=== PATIENT | male | born 1925 | race Caucasian/White ===

== ENCOUNTER 2016-11-14 19:54 | Inpatient (IN) ==
[2016-11-14] MEDS ORDERED: 0.9 % SODIUM CHLORIDE 1,000 ML IV ONE ×2 (20:17→22:41)
[2016-11-14] MEDS ORDERED: cefTRIAXone 1 GM in DEXTROSE 5% IN WATER 50 ML IV SCH (20:30)
[2016-11-14] MEDS ORDERED: 0.9 % SODIUM CHLORIDE 1,000 ML IV SCH (21:00)
[2016-11-14 21:16] LABS: Basophils # (Auto) 0 K/mcL (0.0-0.3); Basophils % (Auto) 0.1 % (0.0-2.0); Eosinophils # (Auto) 0.2 K/mcL (0.0-0.7); Eosinophils % (Auto) 0.9 % (0.0-7.0); Granulocytes % (Auto) 92.2 % (38.0-78.0); Lymphocytes # (Auto) 0.4 K/mcL (1.5-4.8); Lymphocytes % (Auto) 1.8 % (15.5-49.0); Mean Cell Volume 91.5 fL (80.0-100.0); Mean Corpuscular HGB Conc 32.8 g/dL (31.0-36.0); Mean Corpuscular Hemoglobin 30.1 pg (26.0-34.0); Monocytes # (Auto) 1.2 K/mcL (0.1-0.9); Platelet Count 340 K/mcL (140-440); RBC 3.23 M/mcL (4.50-5.90); Red Cell Distribution Width 14.3 % (11.5-14.5)
[2016-11-14 21:38] LABS: ALT/SGPT 14 U/l (0-40); Albumin 3.2 gm/dL (3.2-5.2); Alkaline Phosphatase 84 U/L (39-117); Blood Urea Nitrogen 30 mg/dl (8-23)
[2016-11-14 22:15] LABS: Appearance,Urine TURBID; Bacteria,Urine FEW /hpf (0); Bilirubin,Urine COLOR INTERFERENCE mg/dL (NEG); Color,Urine RED; Glucose,Urine (UA) NORM (NEG); Ictotest,Urine QNS (NEG); Leukocyte Esterase,Urine COLOR INTERFERENCE /uL (NEG); Nitrate,Urine COLOR INTERFERENCE (NEG); Protein,Urine >=500 mg/dL (NEG); Sulfosalicylic Acid,Urine 4+ mg/dL (NEG); Urine Blood 250 mg/dL (<0.03); Urine RBC > 182 /hpf (0-1); Urine Squamous Epithelial Cell 0 /hpf (0-4); Urine WBC > 182 /hpf (0-4); Urobilinogen,Urine COLOR INTERFERENCE mg/dL (NEG)
[2016-11-14] MEDS ORDERED: VANCOMYCIN 1,000 MG in 0.9 % SODIUM CHLORIDE 250 ML IV ONE (22:35)
[2016-11-14] MEDS ORDERED: CEFEPIME 2 GM in DEXTROSE 5% IN WATER 50 ML IV ONE (22:35)
--- NOTE | 2016-11-14 22:45 | Emergency Department Note ---
General Adult HPI - General Chief complaint: Bleeding Other Stated complaint: fever, and blood in urine Time Seen by Provider: 11/14/16 19:57 Source: patient, family, other Mode of arrival: ambulatory Limitations: no limitations - History of Present Illness HPI Narrative: 89-year-old male with a history of previous seizures with UTI comes in today with a syncopal episode and possible seizure from [facility] [place] [facility]. He was shaking and tremulous and coughing. He has been coughing for the last 3 days and had a temperature of 102. EMS reported temperature 100.1. Slightly low blood pressure at 92/50 which is about 10 points systolic lower than typical. He is very hard of hearing but his daughter is here to give me some of the history - Related Data Home Medications Medication Instructions Recorded Confirmed citalopram 20 mg tablet 20 mg PO QDAY tab 04/04/16 11/14/16 Albuterol Sulfate [Ventolin] 2 puff INH Q4HP PRN 06/29/16 11/14/16 Bisacodyl [Dulcolax] 10 mg MT DAILYP PRN 06/29/16 11/14/16 Docusate Sodium [Colace] 100 mg PO BID 06/29/16 11/14/16 Magnesium Hydroxide [Milk of 30 ml PO DAILYP PRN 06/29/16 11/14/16 Magnesia] Polyethylene Glycol 3350 [Miralax] 17 gm PO QDAYPC 06/29/16 11/14/16 Potassium Chloride 40 meq PO QDAY 06/29/16 11/14/16 Simvastatin [Zocor] 20 mg PO HS 06/29/16 11/14/16 glipiZIDE [Glucotrol] 10 mg PO ACB 06/29/16 11/14/16 sitaGLIPtin [Januvia] 100 mg PO DAILY 06/29/16 11/14/16 Ferrous Gluconate [Ferrous 324 mg PO BID 07/30/16 11/14/16 Gluconate] Loperamide [Imodium] 2 mg PO PRN PRN 07/30/16 11/14/16 Calcium Carbonate [Tums] 200 mg PO TID 09/04/16 11/14/16 Furosemide [Lasix] 20 mg PO BID 09/04/16 11/14/16 warfarin 3 mg tablet 3 mg PO DAILY tab 10/19/16 11/14/16 Previous Rx's Medication Instructions Recorded Acetaminophen [Tylenol] 650 mg PO Q4-6HP PRN #0 tab 07/04/16 Insulin Lispro [Humalog] See Protocol SQ ACHS #0 unit 07/04/16 Metoprolol Tartrate [Lopressor] 12.5 mg PO BID tab 07/04/16 Tamsulosin [Flomax] 0.4 mg PO HS cap 07/04/16 Allergies Allergy/AdvReac Type Severity Reaction Status Date / Time No Known Drug Allergies Allergy Verified 09/19/16 13:39 Review of Systems All systems ED: reviewed and negative except as stated. Past Medical History - Past Medical History Attestation: Yes: The following information was validated with the patient. Medical history: Reports: arthritis, atrial fibrillation, cancer (prostate), diabetes, hyperlipidemia, hypertension, renal disease, other (indwelling catheter for obstructive uropathy) Surgical history ED: Reports: cataract, herniorrhaphy, other (TUR, left knee arthroscopy) - Social History smoking status: Never smoker Alcohol use: Reports: None Drug use: Reports: none Physical Exam Pale but otherwise normal-appearing male in no acute distress. Gross hearing loss limits history and exam. Normocephalic atraumatic. Conjunctiva clear sclerae white and anicteric. No nasal discharge or congestion. Oropharynx is pink and moist. Neck is supple without lymphadenopathy or thyromegaly. Heart is regular rate and rhythm no murmurs appreciated. Lungs have crackles bilaterally especially [place]. No wheezing or rhonchi. No respiratory distress. Abdomen soft nontender nondistended. Urine initially had gross blood without clots in his indwelling Kirkpatrick but after changing his out and getting fluids urine cleared up to a clear yellow. No pedal edema. +2 radial pulse. Alert but unclear if oriented. - General Limitations: no limitations Course Vital Signs Temperature 98.8 F 11/14/16 19:55 Pulse Rate 105 H 11/14/16 19:55 Respiratory Rate 25 H 11/14/16 19:55 Blood Pressure 92/50 11/14/16 19:55 Pulse Oximetry (%) 92 11/14/16 19:55 Temperature 100.9 F H 11/14/16 21:45 Pulse Rate 96 H 11/14/16 21:45 Respiratory Rate 24 11/14/16 21:45 Blood Pressure 100/42 11/14/16 21:45 Pulse Oximetry (%) 91 11/14/16 21:45 Medical Decision Making - Medical Records Medical records reviewed: Yes I reviewed the patient's medical records. - Lab Data Lab results reviewed: Yes I reviewed the patient's lab results. Result diagrams: 11/14/16 20:35 11/14/16 20:35 Lab Results 11/14/16 11/14/16 11/14/16 Range/Units 20:20 20:35 20:35 WBC 25.0 H (4.5-11.0) K/mcL RBC 3.23 L (4.50-5.90) M/mcL Hgb 9.7 L (13.5-16.5) g/dL Hct 29.6 L (41.0-55.0) % MCV 91.5 (80.0-100.0) fL MCH 30.1 (26.0-34.0) pg MCHC 32.8 (31.0-36.0) g/dL RDW 14.3 (11.5-14.5) % Plt Count 340 (140-440) K/mcL MPV 7.4 (7.4-10.4) fL Gran % 92.2 H (38.0-78.0) % Lymph % (Auto) 1.8 L (15.5-49.0) % Terry % (Auto) 5.0 (1.0-9.0) % Eos % (Auto) 0.9 (0.0-7.0) % Baso % (Auto) 0.1 (0.0-2.0) % Gran # 23.0 H (1.8-8.0) K/mcL Lymph # 0.4 L (1.5-4.8) K/mcL Terry # 1.2 H (0.1-0.9) K/mcL Eos # 0.2 (0.0-0.7) K/mcL Baso # 0 (0.0-0.3) K/mcL PT 26.6 H (11.9-14.5) sec INR 2.4 H (0.9-1.1) VBG Lactic Acid (0.5-2.2) mmol/L Sodium 131 L (133-145) mmol/L Potassium 4.8 (3.3-5.1) mmol/L Chloride 94 L (96-108) mmol/L Carbon Dioxide 24 (22-30) mmol/L Anion Gap 13.0 (8-16) BUN 30 H (8-23) mg/dl Creatinine 1.7 H (0.7-1.2) mg/dl GFR Calculation 35 Glucose 105 (70-105) mg/dL Calcium 8.6 (8.6-10.4) mg/dl Total Bilirubin 0.4 (0.0-1.0) mg/dL AST 27 (0-37) U/l ALT 14 (0-40) U/l Alkaline Phosphatase 84 (39-117) U/L Total Protein 6.4 (5.9-8.4) gm/dL Albumin 3.2 (3.2-5.2) gm/dL Globulin 3.2 (2.2-3.7) gm/dL Albumin/Globulin Ratio 1.0 (1.0-2.3) Lipase (7-60) U/L Urine Color Urine Appearance Urine pH (5.0-9.0) Ur Specific [place] (1.000-1.035) Urine Protein (NEG) mg/dL Urine Glucose (UA) (NEG) mg/dL Urine Ketones (NEG) mg/dL Urine Occult Blood (<0.03) mg/dL Urine Nitrate (NEG) Urine Bilirubin (NEG) mg/dL Urine Ictotest Prot Sulfosalicylic Acd (NEG) mg/dL Urine Urobilinogen (NEG) mg/dL Ur Leukocyte Esterase (NEG) /uL Urine RBC (0-1) /hpf Urine WBC (0-4) /hpf Ur Squamous Epith Cells (0-4) /hpf Urine Bacteria (0) /hpf 11/14/16 11/14/16 11/14/16 Range/Units 20:35 20:45 21:03 WBC (4.5-11.0) K/mcL RBC (4.50-5.90) M/mcL Hgb (13.5-16.5) g/dL Hct (41.0-55.0) % MCV (80.0-100.0) fL MCH (26.0-34.0) pg MCHC (31.0-36.0) g/dL RDW (11.5-14.5) % Plt Count (140-440) K/mcL MPV (7.4-10.4) fL Gran % (38.0-78.0) % Lymph % (Auto) (15.5-49.0) % Terry % (Auto) (1.0-9.0) % Eos % (Auto) (0.0-7.0) % Baso % (Auto) (0.0-2.0) % Gran # (1.8-8.0) K/mcL Lymph # (1.5-4.8) K/mcL Terry # (0.1-0.9) K/mcL Eos # (0.0-0.7) K/mcL Baso # (0.0-0.3) K/mcL PT (11.9-14.5) sec INR (0.9-1.1) VBG Lactic Acid 2.1 (0.5-2.2) mmol/L Sodium (133-145) mmol/L Potassium (3.3-5.1) mmol/L Chloride (96-108) mmol/L Carbon Dioxide (22-30) mmol/L Anion Gap (8-16) BUN (8-23) mg/dl Creatinine (0.7-1.2) mg/dl GFR Calculation Glucose (70-105) mg/dL Calcium (8.6-10.4) mg/dl Total Bilirubin (0.0-1.0) mg/dL AST (0-37) U/l ALT (0-40) U/l Alkaline Phosphatase (39-117) U/L Total Protein (5.9-8.4) gm/dL Albumin (3.2-5.2) gm/dL Globulin (2.2-3.7) gm/dL Albumin/Globulin Ratio (1.0-2.3) Lipase 50 (7-60) U/L Urine Color Red Urine Appearance Turbid Urine pH 7.0 (5.0-9.0) Ur Specific [place] 1.010 (1.000-1.035) Urine Protein >=500 A (NEG) mg/dL Urine Glucose (UA) Norm (NEG) mg/dL Urine Ketones Color interference (NEG) mg/dL Urine Occult Blood 250 (<0.03) mg/dL Urine Nitrate Color interference (NEG) Urine Bilirubin Color interference (NEG) mg/dL Urine Ictotest QNS Prot Sulfosalicylic Acd 4+ (NEG) mg/dL Urine Urobilinogen Color interference (NEG) mg/dL Ur Leukocyte Esterase Color interference (NEG) /uL Urine RBC > 182 H (0-1) /hpf Urine WBC > 182 H (0-4) /hpf Ur Squamous Epith Cells 0 (0-4) /hpf Urine Bacteria Few A (0) /hpf - Radiology Data Radiology results reviewed: Yes I reviewed the patient's radiology results. Portable chest x-ray appears clear CT scan of the chest without contrast was done for cough and crackles- could not do with contrast secondary to creatinine of 1.7. I do not see jean pneumonia just some atelectasis in the left lower lobe. - EKG Data EKG #1 EKG attestation: Yes I reviewed and interpreted this EKG. EKG results narrative: eKG shows a rate of 96 with right bundle branch block and left posterior fascicular block no evidence of ischemia Disposition Summary: Patient is DNR with limited interventions Patient was initially worked up for sepsis from UTI versus pneumonia- he had fever hypertension and hematuria grossly in his indwelling Kirkpatrick. We started fluid resuscitation, got blood cultures and urine cultures, started Rocephin. Lactic acid was done Chest x-ray and subsequently CT scan of the chest was done which did not show significant respiratory infection, though clinically he has crackles and upper respiratory infection. White count was 25 and in the setting of fever and hypotension, this merits diagnosis of sepsis likely from UTI. After we changed Kirkpatrick urine cleared up. We added cefepime and vancomycin just to be sure we covered for healthcare associated infections as he lives in a nursing facility. He responded well to fluid resuscitation- he will receive a total of 3 L Discussed his case with Dr. Ferrer, hospitalist, who agreed to accept patient for admission Disposition: Xfer As Inpt ([facility]) Condition: Fair Referrals: Jamie Turner MD [Primary Care Provider] - Benton Ferrer MD [Physician] -
[2016-11-14] MEDS ORDERED: DEXTROSE 50% 50 ML VIAL IV PRN (23:39)
[2016-11-14] MEDS ORDERED: traZODone HCL 50 MG TABLET PO PRN (23:39)
[2016-11-14] MEDS ORDERED: MAGNESIUM SULFATE 2 GM/50 ML BAG IV PRN (23:39)
[2016-11-14] MEDS ORDERED: LEVOFLOXACIN 750 MG/150 ML BAG IV SCH (23:39)
[2016-11-14] MEDS ORDERED: ONDANSETRON 4 MG/2 ML VIAL IV PRN (23:39)
[2016-11-14] MEDS ORDERED: VANCOMYCIN PER PHARMACY IV ONE (23:39)
[2016-11-14] MEDS ORDERED: POTASSIUM CHLORIDE 20 MEQ PACKET PO PRN (23:39)
[2016-11-14] MEDS: 0.9 % SODIUM CHLORIDE 1,000 ML IV SCH (23:45)
[2016-11-14] MEDS: CEFEPIME 2 GM in DEXTROSE 5% IN WATER 50 ML IV SCH (23:45)
[2016-11-14] MEDS ORDERED: LEVOFLOXACIN 750 MG/150 ML BAG IV ONE (23:53)
[2016-11-15] MEDS ORDERED: NOREPINEPHRINE BITARTRATE 4 MG/4 ML AMPUL IV ONE (00:04)
--- NOTE | 2016-11-15 00:41 | History and Physical Report ---
DATE OF ADMISSION: 11/14/2016 DATE OF ADMISSION: 11/14/2016 REASON FOR ADMISSION: Fever, weakness, low blood pressure, blood in urine and fall. HISTORY OF CHIEF COMPLAINT: Shekhar is an 89-year-old resident of [facility], was transferred to [facility] ER after he had a syncopal episode with fall and subsequent significant hematuria. The patient carries a history of prostate cancer and has an indwelling Kirkpatrick catheter. The patient also has been experiencing fever along with shaking chills, weakness and generalized malaise and poor functionality, which has progressed over the last 48 hours. Initial workup in the ER was significant for temperature of 102 with 25,000 white count, pyuria, along with hematuria. Initial blood pressures were in the 80s. The patient received 2 liters of crystalloids with improvement in blood pressure systolics around 100. Hospitalist Service was consulted in light of septic shock along with complicated UTI, fall. At the time of examination, the patient is accompanied with his 2 daughters. He was able to provide some of the history. He is hard of hearing, but denies chest pain, abdominal pain, diarrhea, or bloody stool. He endorses to hematuria after he fell, but denies back pain or headache. He does endorse shaking chills, fever, but no ear or nose discharge, just palpitations. He endorses lightheadedness. He denies any precipitating events including chest palpitation, seizure-like episode before he fell. He attributes the fall to weakness. REVIEW OF SYSTEMS: Ten-point review of system was performed and negative except the ones discussed above. PAST MEDICAL HISTORY: 1. Anxiety disorder. 2. Chronic kidney disease. 3. Hypertension. 4. Hyperlipidemia. 5. Diabetes mellitus type 2. 6. Anemia. 7. Atrial fibrillation. 8. Anticoagulation for CVA prophylaxis. CURRENT MEDICATIONS: Citalopram 20. Albuterol as needed. Docusate 100 mg b.i.d. Simvastatin 20. Potassium 14 daily. Glipizide 10. Sitagliptin 100. Furosemide 20 twice a day. Warfarin 3 daily. Lispro per sliding scale. Metoprolol 12.5 twice a day. Tamsulosin 0.4. Acetaminophen 650 every 4 hours. ALLERGIES: NONE SIGNIFICANT. SOCIAL HISTORY: The patient resides at [facility]. He is a . No history of smoking or alcohol. His 2 daughters are accompanying him. 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 FAMILY HISTORY: Given advanced age, not relevant, but positive for sister with throat cancer. CODE STATUS: DO NOT RESUSCITATE. PHYSICAL EXAMINATION: GENERAL: The patient is fairly distressed but able to talk in full sentences. BMI 26. Height 6 feet 2 inches. VITAL SIGNS: Blood pressure 100/43, respiration rate 25, temperature 100.9, pulse 96, sats 91 percent on room air. HEENT: Pupils symmetric. Oral cavity is dry. No ear or nose discharge. Head is normocephalic. NECK: No lymphadenopathy. HEART: S1 and S2. Irregular rhythm. ESM grade 1. CHEST: Diminished breath sounds at bases. No crackles. ABDOMEN: Soft, nontender. GENITOURINARY: Initial hematuria with urine clearing up, appears pyuria. LOWER EXTREMITIES: No cyanosis or clubbing. No joint swelling. SKIN: No suspicious lesions. PSYCHIATRIC: Fatigued, anxious, but cooperative. No agitation. NEURO: Moving all 4 extremities. LABS AND IMAGING: White count 25,000, hemoglobin 9.7. Neutrophils 92 percent. INR 2.4, lactic acid 2.1. Sodium 131, potassium 4.8, creatinine 1.7, BUN 30. Lipase 50. UA significant for pyuria, 182 WBCs, along with hematuria, along with bacteria. Culture is pending. CT chest: Basilar infiltrates, atelectasis. EKG: Sinus rhythm with intermittent PACs. ASSESSMENT AND PLAN: An 89-year-old admitted with septic shock with end organ dysfunction including mild acute renal failure. 1. Complicated urinary tract infection, indwelling catheter, high risk for pseudomonas/enterococci. Start patient on vancomycin along with cefepime and deescalate based on culture results. 2. Septic shock. Continue crystalloids and use vasopressors if needed to keep MAP at goal. 3. Mild acute kidney injury secondary to end organ dysfunction. Continue monitoring renal function. Crystalloids. 4. Hematuria from trauma during fall, started to clear. Consult urology if persistent hematuria for 3-way catheter irrigation. 5. Prior medical issues including: a. History of atrial fibrillation. Continue metoprolol. b. Anxiety disorder. Continue citalopram. c. Diabetes mellitus type 2. Continue Sitagliptin/sliding scale insulin. PLAN FOR TODAY: 1. Admit as inpatient in ICU. 2. Crystalloids, vasopressors as needed. 3. Broad antibiotic coverage and deescalate based on cultures. 4. Preexisting medical condition management as above. The patient is a high risk mortality given CHILKAT score of 16 on presentation, mandating inpatient hospitalization. A minimum of 2 midnights anticipated for treatment. The patient's overall prognosis is poor, given high white count and severe sepsis with end organ dysfunction. Family made aware. Total time spent on history and physical over 55 minutes, in addition 35 minutes spent in stabilizing patient, management of shock, reviewing labs and imaging, chest CT and treatment plan formulation. AA:[email or web address] Job ID: [id number] Doc ID: [id number] Benton Ferrer MD MTDHi
[2016-11-15] MEDS: 0.9 % SODIUM CHLORIDE 10 ML SYRINGE IV SCH ×3 (05:09→20:39)
[2016-11-15 05:55] LABS: Mean Cell Volume 92.8 fL (80.0-100.0); Mean Corpuscular HGB Conc 32.2 g/dL (31.0-36.0); Mean Corpuscular Hemoglobin 29.9 pg (26.0-34.0); Platelet Count 320 K/mcL (140-440); RBC 2.78 M/mcL (4.50-5.90); Red Cell Distribution Width 14.8 % (11.5-14.5)
[2016-11-15 06:28] LABS: ALT/SGPT 12 U/l (0-40); Albumin 2.6 gm/dL (3.2-5.2); Albumin/Globulin Ratio 0.9 (1.0-2.3); Alkaline Phosphatase 71 U/L (39-117); Bilirubin,Direct < 0.2 mg/dL (0.0-0.3); Blood Urea Nitrogen 27 mg/dl (8-23); Gamma Glutamyl Transpeptidase 42 U/L (8-61); Magnesium 1.8 mg/dL (1.6-2.5); Phosphorous 2.6 mg/dL (2.7-4.5); Uric Acid 4.8 mg/dL (2.5-8.0)
[2016-11-15 06:51] LABS: Hemoglobin A1C 5.3 % HGB (4.0-6.0)
[2016-11-15 07:01] LABS: Anisocytosis 1+ (NONE SEEN); Band Neutrophils % 16 % (0-10); Lymphocytes % 2 % (15-49); Monocytes % (Manual) 2 % (1-9); Platelet Estimate NORMAL (NORMAL); RBC Morphology ABNORM (NORMAL); Segmented Neutrophils % 80 % (38-78)
--- NOTE | 2016-11-15 08:17 | XRay Report ---
HISTORY: Reason for Exam:cough FINDINGS: Mildly prominent increased interstitial lung markings are present in both lower lobes. There is no consolidating infiltrate or mass. The heart size is upper limits of normal. No pulmonary congestion or pleural effusion are present. There has been relatively little change since 07/30/16. 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
--- NOTE | 2016-11-15 08:24 | Cat Scan Report ---
CLINICAL INFORMATION: Fever, blood in urine and prostate cancer COMPARISON: None TECHNIQUE: 2.5 mm axial slices were obtained from the lung apices through the bases without intravenous contrast. Sagittal, coronal and axial reformatted images were processed and reviewed at bone, lung and soft tissue windows. 7 mm axial MIP images were also reconstructed. FINDINGS: There is a small band of consolidated lung tissue in the anterior basal segment left lower lobe. A more subtle streaky infiltrate is present in the medial and posterior basal segments left lower lobe. This may be accommodation of atelectasis or fibrosis and pneumonia. There is also thickening of the bronchial pavon in the basilar segments left lower lobe which indicates bronchitis. Minor interstitial fibrosis is present in the right lung and around the top of the aortic arch. There is no evidence of pulmonary metastasis. No pleural effusion or enlarged lymph nodes are present. The heart size is borderline enlarged. There are calcified plaques in the coronary arteries. The aorta is normal in caliber and also has mild atherosclerosis.. Bone windows show degenerative changes in the cervical thoracic spine but no evidence of metastasis. The left lobe and caudate lobe of the liver are enlarged and there is relative atrophy of the right lobe. These findings would suggest cirrhosis. There is a large calcified stone in the gallbladder lumen. IMPRESSION: 1. Small left lower lobe infiltrate and bronchial wall thickening indicating bronchitis 2. Moderate atherosclerotic coronary artery disease 3. Cirrhotic liver 4. Cholelithiasis Interpreted and Authenticated by: Rahul Jones 11/15/16
[2016-11-15] MEDS: INSULIN LISPRO 1 UNIT/0.01 ML UNIT SQ SCH ×4 (09:49→20:39)
[2016-11-15] MEDS: CEFEPIME 2 GM in DEXTROSE 5% IN WATER 50 ML IV SCH ×2 (09:50→20:35)
[2016-11-15] MEDS: HEPARIN 5,000 UNIT/ML VIAL SQ SCH ×2 (09:51→20:33)
[2016-11-15] MEDS: FUROSEMIDE 20 MG TABLET PO SCH ×2 (09:51→20:33)
[2016-11-15] MEDS: 0.9 % SODIUM CHLORIDE 1,000 ML IV SCH ×2 (09:52→20:36)
[2016-11-15] MEDS: METOPROLOL TARTRATE 25 MG TABLET PO SCH ×2 (09:52→20:33)
[2016-11-15] MEDS: DOCUSATE SODIUM 100 MG CAPSULE PO SCH ×2 (09:53→20:38)
[2016-11-15] MEDS: CITALOPRAM 20 MG TABLET PO SCH (10:25)
[2016-11-15] MEDS: sitaGLIPtin 100 MG TABLET PO SCH (10:25)
[2016-11-15] MEDS ORDERED: VANCOMYCIN 1,000 MG in 0.9 % SODIUM CHLORIDE 250 ML IV ONE (11:00)
--- NOTE | 2016-11-15 11:29 | Internal Med Progress Note ---
Medical - PN: Subj Patient information: Note initiated : 11/15/16 at 11:27 am Service Date, if different from initiated Date: [] Patient: Shekhar De La Cruz 89 y/o M admitted on 11/14/16 for Fever, Blood in Urine/ Septic Shock. Chief Complaint: [] Interval history: 11/14-atient admitted with severe sepsis with end organ dysfunction along with complicated UTI hematuria. White count 25,000.creatinine 1.7 Admitted to ICU. On aggressive crystalloids to keep map at goal. High-risk mortality based on [place] 2 score. Family made aware. 11/15- Patient clinically unchanged however white count at 32.7 with increasing 16 % band. Alert and responsive. Map at goal. Foleys draining cloudy urine.creatinine down from 1.7-1.5. Gram-negative javi and urine culture. Systoles pending - Constitutional Vitals: Vital Signs Temp Pulse Resp BP Pulse Ox 100.3 F H 78 26 H 113/58 94 11/15/16 11:00 11/15/16 11:00 11/15/16 11:00 11/15/16 11:00 11/15/16 11:00 Period Temp Pulse Resp BP Sys/Lee Pulse Ox Last 24 Hr 98.7 F-100.3 F 67-88 18-26 90-113/43-64 90-97 Intake and Output 11/14/16 11/15/16 11/15/16 21:59 05:59 13:59 Intake Total 1250 / 2250 1300 / 1300 Output Total 400 / 400 Balance 850 / 1850 1300 / 1300 Intake & Output: Intake & Output 11/14/16 11/15/16 11/15/16 21:59 05:59 13:59 Intake Total 1250 / 2250 1300 / 1300 Output Total 400 / 400 Balance 850 / 1850 1300 / 1300 Intake: IV 1250 / 1250 1100 / 1100 Sodium Chloride 0.9% 1, 1000 / 1000 1000 / 1000 000 ml @ 100 mls/hr IV . Q10H SUKHI Rx#:[id number] Dextrose 5% in Water 50 100 / 100 ml @ 100 mls/hr IV Q12H SUKHI with Maxipime 2 gm Rx #:[id number] Sodium Chloride 0.9% 250 250 / 250 ml @ 250 mls/hr IV ONCE ONE with Vancomycin 1,000 mg Rx#:[id number] Oral 200 / 200 Output: Urine Catheter Amount 400 / 400 Other: Meal Breakfast Percent of Meal Consumed 75% General appearance: moderate distress, no acute distress Exam: ild hematuria nonlabored breathing Telemetry A. fib Nondistended abdomen Minimal lymphedema Medical - PN: Obj Da - Labs CBC & Chem 7: 11/15/16 03:30 11/15/16 03:30 Labs: Abnormal Lab Results 11/15/16 11/15/16 11/15/16 07:25 03:30 03:30 WBC 32.7 H* RBC 2.78 L Hgb 8.3 L Hct 25.8 L RDW 14.8 H MPV 7.3 L Seg Neutrophils % 80 H Band Neutrophils % 16 H Lymphocytes % 2 L RBC Morphology Abnorm A Anisocytosis 1+ A PT 30.4 H INR 2.8 H Carbon Dioxide 19 L BUN 27 H Creatinine 1.5 H Glucose 110 H Calcium 7.7 L Phosphorus 2.6 L Total Protein 5.5 L Albumin 2.6 L Albumin/Globulin Ratio 0.9 L Meds: Medications Acetaminophen (Tylenol) 650 mg PO Q4-6HP PRN PRN Reason: PAIN/FEVER > 101 Citalopram Hydrobromide (Celexa) 20 mg PO QDAY [facility] Last Admin: 11/15/16 10:25 Dose: 20 mg Dextrose (Dextrose 50%) 0 ml IV UD PRN PRN Reason: Hypoglycemia Diagnostic Test (Pha) (Accu-Chek) 1 each FS ACHS [facility] Last Admin: 11/15/16 09:49 Dose: 1 each Docusate Sodium (Colace) 100 mg PO BID [facility] Last Admin: 11/15/16 09:53 Dose: Not Given Furosemide (Lasix) 20 mg PO BID [facility] Last Admin: 11/15/16 09:51 Dose: 20 mg Heparin Sodium (Porcine) (Heparin) 5,000 unit SQ Q12 [facility] Last Admin: 11/15/16 09:51 Dose: 5,000 unit Cefepime HCl 2 gm/ Dextrose 50 mls @ 100 mls/hr IV Q12H [facility] Last Infusion: 11/15/16 10:26 Dose: Infused Magnesium Sulfate (Magnesium Sulfate) 2 gm in 50 mls @ 50 mls/hr IV UD PRN PRN Reason: MG = or < 1.7 Sodium Chloride (Sodium Chloride 0.9%) 1,000 mls @ 100 mls/hr IV .Q10H [facility] Last Admin: 11/15/16 09:52 Dose: 100 mls/hr Levofloxacin (Levaquin) 750 mg in 150 mls @ 100 mls/hr IV Q48H [facility] Vancomycin HCl 1,000 mg/ (Sodium Chloride) 250 mls @ 250 mls/hr IV ONCE ONE Stop: 11/15/16 11:59 Vancomycin HCl 1,500 mg/ (Sodium Chloride) 500 mls @ 333.3 mls/hr IV Q24H [facility] Insulin Human Lispro (Humalog) 0 unit SQ ACHS [facility] PRN Reason: Protocol Last Admin: 11/15/16 09:49 Dose: Not Given Metoprolol Tartrate (Lopressor) 12.5 mg PO BID [facility] Last Admin: 11/15/16 09:52 Dose: 12.5 mg Ondansetron HCl (Zofran) 4 mg IV Q4-6HP PRN PRN Reason: Nausea And Vomiting Potassium Chloride (Klor-Con) 40 meq PO DAILYP PRN PRN Reason: K+ < 3.5 Senna/Docusate Sodium (Senna Plus Tablet) 1 tab PO HS [facility] Sitagliptin Phosphate (Januvia) 100 mg PO DAILY [facility] Last Admin: 11/15/16 10:25 Dose: 100 mg Sodium Chloride (Saline Flush) 10 ml IV Q8 [facility] Last Admin: 11/15/16 05:09 Dose: Not Given Trazodone HCl (Desyrel) 50 mg PO HSP PRN PRN Reason: Insomnia Warfarin Sodium (Coumadin) 1 mg PO ONCE@1400 ONE Stop: 11/15/16 14:01 Medical - PN: A/P - Time Spent With Patient Total time spent is greater than 50% in coordination of care (as documented) at patient's floor/unit and/or counseling patient: 25 - 35 minutes (1) Severe sepsis with acute organ dysfunction due to Gram negative bacteria Status: Acute Assessment and plan: * Severe sepsis secondary to gram-negative bacteremia-Likely secondary to complicated UTI. On broad antibiotic coverage. Improving hemodynamics and renal function * Complicated UTI-continue antibiotic coverage and de-escalate based on cultures * left lower lobe infiltrate-ontinue antibiotic coverage * DM type II continue- Prandial insulin * hyperlipidemia on statin Plan * Broad antibiotic coverage * High-risk mortality given worsening white count and 32,000. * close hemodynamic monitoring Current Visit: Yes Medical - PN: Qual - VTE Deep Vein Thrombosis/Pulmonary Embolism Present on Admission: No
[2016-11-15] MEDS ORDERED: WARFARIN 1 MG TABLET PO ONE (14:00)
[2016-11-15] MEDS: ACETAMINOPHEN 325 MG TABLET PO PRN (20:32)
[2016-11-15] MEDS ORDERED: SENNOSIDES/DOCUSATE SODIUM 1 TAB TABLET PO SCH (21:00)
[2016-11-16 05:29] LABS: Mean Cell Volume 92.5 fL (80.0-100.0); Mean Corpuscular HGB Conc 32.5 g/dL (31.0-36.0); Mean Corpuscular Hemoglobin 30.1 pg (26.0-34.0); Platelet Count 282 K/mcL (140-440); RBC 2.78 M/mcL (4.50-5.90); Red Cell Distribution Width 14.5 % (11.5-14.5)
[2016-11-16] MEDS: 0.9 % SODIUM CHLORIDE 10 ML SYRINGE IV SCH ×3 (05:48→21:30)
[2016-11-16] MEDS: 0.9 % SODIUM CHLORIDE 1,000 ML IV SCH ×3 (05:48→14:38)
[2016-11-16 05:52] LABS: ALT/SGPT 11 U/l (0-40); Albumin 2.6 gm/dL (3.2-5.2); Albumin/Globulin Ratio 0.9 (1.0-2.3); Alkaline Phosphatase 83 U/L (39-117); Bilirubin,Direct < 0.2 mg/dL (0.0-0.3); Blood Urea Nitrogen 27 mg/dl (8-23); Gamma Glutamyl Transpeptidase 40 U/L (8-61); Magnesium 1.7 mg/dL (1.6-2.5); Phosphorous 2.6 mg/dL (2.7-4.5); Uric Acid 4.5 mg/dL (2.5-8.0)
[2016-11-16 06:59] LABS: Band Neutrophils % 1 % (0-10); Basophils % (Manual) 1 % (0-2); Lymphocytes % 13 % (15-49); Monocytes % (Manual) 7 % (1-9); Platelet Estimate NORMAL (NORMAL); RBC Morphology NORMAL (NORMAL); Segmented Neutrophils % 78 % (38-78)
[2016-11-16] MEDS ORDERED: 0.9 % SODIUM CHLORIDE 10 ML SYRINGE IV PRN ×2 (08:47→14:45)
[2016-11-16] MEDS: CEFEPIME 2 GM in DEXTROSE 5% IN WATER 50 ML IV SCH (09:00)
--- NOTE | 2016-11-16 09:11 | XRay Report ---
HISTORY: Reason for Exam:PICC PLACEMENT FINDINGS: A PICC line has been inserted through the left arm. The tip of the catheter lies medial to the top of the aortic arch in the location of the innominate vein. There is no pneumothorax or pleural effusion. The mediastinum is not abnormally widened. There are diffuse increased interstitial lung markings bilaterally which may be due to an inflammatory process. No lobar consolidation is present. The heart size is within upper limits of normal. IMPRESSION: No complication following PICC line insertion. ICU was called with the results Interpreted and Authenticated by: Rahul Jones 11/16/16
[2016-11-16] MEDS: INSULIN LISPRO 1 UNIT/0.01 ML UNIT SQ SCH ×4 (09:52→21:17)
[2016-11-16] MEDS: DOCUSATE SODIUM 100 MG CAPSULE PO SCH ×2 (09:53→20:27)
[2016-11-16] MEDS ORDERED: LEVOFLOXACIN 750 MG/150 ML BAG IV SCH (10:00)
[2016-11-16] MEDS: CITALOPRAM 20 MG TABLET PO SCH (10:01)
[2016-11-16] MEDS: sitaGLIPtin 100 MG TABLET PO SCH (10:01)
[2016-11-16] MEDS: HEPARIN 5,000 UNIT/ML VIAL SQ SCH (10:01)
[2016-11-16] MEDS: METOPROLOL TARTRATE 25 MG TABLET PO SCH ×2 (10:02→21:16)
[2016-11-16] MEDS: FUROSEMIDE 20 MG TABLET PO SCH ×2 (10:02→21:16)
[2016-11-16] MEDS: ACETAMINOPHEN 325 MG TABLET PO PRN ×2 (10:02→21:25)
[2016-11-16] MEDS ORDERED: VANCOMYCIN 1,500 MG in 0.9 % SODIUM CHLORIDE 500 ML IV SCH (11:00)
[2016-11-16] MEDS ORDERED: ERTAPENEM 1 GM in 0.9 % SODIUM CHLORIDE 50 ML IV SCH (13:45)
--- NOTE | 2016-11-16 13:46 | Internal Med Progress Note ---
Medical - PN: Subj Patient information: Note initiated : 11/16/16 at 1:42 pm Service Date, if different from initiated Date: [] Patient: Shekhar De La Cruz 89 y/o M admitted on 11/14/16 for Fever, Blood in Urine/ Septic Shock. Chief Complaint: [] Interval history: 11/14-atient admitted with severe sepsis with end organ dysfunction along with complicated UTI hematuria. White count 25,000.creatinine 1.7 Admitted to ICU. On aggressive crystalloids to keep map at goal. High-risk mortality based on [place] 2 score. Family made aware. 11/15- Patient clinically unchanged however white count at 32.7 with increasing 16 % band. Alert and responsive. Map at goal. Foleys draining cloudy urine.creatinine down from 1.7-1.5. Gram-negative javi and urine culture. sensitivities pending -11/16 patient doing well. White count down from 32,000 -> 13. no overnight fever chills nausea vomiting. Foleys draining clear urine. No hematuria. No telemetry events. Transfer to medical floor. No family at bedside - Constitutional Vitals: Vital Signs Temp Pulse Resp BP Pulse Ox 98.5 F 60 18 120/56 97 11/16/16 12:00 11/16/16 12:00 11/16/16 12:00 11/16/16 12:00 11/16/16 12:00 Period Temp Pulse Resp BP Sys/Lee Pulse Ox Last 24 Hr 98.3 F-100.5 F 55-73 16-27 94-138/48-76 94-98 Intake and Output 11/15/16 11/16/16 11/16/16 21:59 05:59 13:59 Intake Total 1450 / 1450 410 / 410 1592 / 1592 Output Total 1070 / 1070 1280 / 1280 700 / 700 Balance 380 / 380 -870 / -870 892 / 892 Weight 209 lb 6.4 oz Intake & Output: Intake & Output 11/15/16 11/16/16 11/16/16 21:59 05:59 13:59 Intake Total 1450 / 1450 410 / 410 1592 / 1592 Output Total 1070 / 1070 1280 / 1280 700 / 700 Balance 380 / 380 -870 / -870 892 / 892 Weight 209 lb 6.4 oz Intake: IV 1250 / 1250 50 / 50 1232 / 1232 Sodium Chloride 0.9% 1, 1000 / 1000 1000 / 1000 000 ml @ 100 mls/hr IV . Q10H [facility] Rx#:[id number] Dextrose 5% in Water 50 50 / 50 50 / 50 ml @ 100 mls/hr IV Q12H SUKH[facility] with Maxipime 2 gm Rx #:[id number] Sodium Chloride 0.9% 250 250 / 250 ml @ 250 mls/hr IV ONCE ONE with Vancomycin 1,000 mg Rx#:[id number] Oral 200 / 200 360 / 360 360 / 360 Output: Urine Catheter Amount 1070 / 1070 1180 / 1180 600 / 600 Stool 100 / 100 100 / 100 Other: Meal Breakfast Percent of Meal Consumed 50% Feeding Ability Assist with Tray Set Up # Bowel Movements 1 General appearance: cooperative, no acute distress Exam: alert oriented nonlabored breathing Nondistended abdomen Foleys draining clear urine Medical - PN: Obj Da - Labs CBC & Chem 7: 11/16/16 03:40 11/16/16 03:40 Labs: Abnormal Lab Results 11/16/16 11/16/16 11/16/16 03:40 03:40 03:40 WBC 13.2 H RBC 2.78 L Hgb 8.4 L Hct 25.7 L RDW MPV Seg Neutrophils % Band Neutrophils % Lymphocytes % 13 L WBC Morphology Abnorm A Vacuolated Monocytes Few A RBC Morphology Anisocytosis PT 25.6 H INR 2.2 H Carbon Dioxide 21 L BUN 27 H Creatinine 1.5 H Glucose Calcium 7.9 L Phosphorus 2.6 L Total Protein 5.4 L Albumin 2.6 L Albumin/Globulin Ratio 0.9 L 11/15/16 11/15/16 11/15/16 07:25 03:30 03:30 WBC 32.7 H* RBC 2.78 L Hgb 8.3 L Hct 25.8 L RDW 14.8 H MPV 7.3 L Seg Neutrophils % 80 H Band Neutrophils % 16 H Lymphocytes % 2 L WBC Morphology Vacuolated Monocytes RBC Morphology Abnorm A Anisocytosis 1+ A PT 30.4 H INR 2.8 H Carbon Dioxide 19 L BUN 27 H Creatinine 1.5 H Glucose 110 H Calcium 7.7 L Phosphorus 2.6 L Total Protein 5.5 L Albumin 2.6 L Albumin/Globulin Ratio 0.9 L Meds: Medications Acetaminophen (Tylenol) 650 mg PO Q4-6HP PRN PRN Reason: PAIN/FEVER > 101 Last Admin: 11/16/16 10:02 Dose: 650 mg Citalopram Hydrobromide (Celexa) 20 mg PO QDAY [facility] Last Admin: 11/16/16 10:01 Dose: 20 mg Dextrose (Dextrose 50%) 0 ml IV UD PRN PRN Reason: Hypoglycemia Diagnostic Test (Pha) (Accu-Chek) 1 each FS ACHS [facility] Last Admin: 11/16/16 11:19 Dose: 1 each Docusate Sodium (Colace) 100 mg PO BID [facility] Last Admin: 11/16/16 09:53 Dose: Not Given Furosemide (Lasix) 20 mg PO BID [facility] Last Admin: 11/16/16 10:02 Dose: 20 mg Heparin Sodium (Porcine) (Heparin) 5,000 unit SQ Q12 [facility] Last Admin: 11/16/16 10:01 Dose: 5,000 unit Heparin Sodium (Porcine) (Heparin Flush) 2 ml IV Q12 [facility] Last Admin: 11/16/16 10:01 Dose: 2 ml Cefepime HCl 2 gm/ Dextrose 50 mls @ 100 mls/hr IV Q12H [facility] Last Infusion: 11/16/16 09:30 Dose: Infused Magnesium Sulfate (Magnesium Sulfate) 2 gm in 50 mls @ 50 mls/hr IV UD PRN PRN Reason: MG = or < 1.7 Last Infusion: 11/16/16 09:49 Dose: Infused Sodium Chloride (Sodium Chloride 0.9%) 1,000 mls @ 100 mls/hr IV .Q10H [facility] Last Admin: 11/16/16 09:49 Dose: 100 mls/hr Levofloxacin (Levaquin) 750 mg in 150 mls @ 100 mls/hr IV Q48H [facility] Last Infusion: 11/16/16 12:38 Dose: 0 mls/hr Vancomycin HCl 1,500 mg/ (Sodium Chloride) 500 mls @ 333.3 mls/hr IV Q24H [facility] Last Admin: 11/16/16 11:18 Dose: 333.3 mls/hr Insulin Human Lispro (Humalog) 0 unit SQ ACHS [facility] PRN Reason: Protocol Last Admin: 11/16/16 11:19 Dose: Not Given Metoprolol Tartrate (Lopressor) 12.5 mg PO BID [facility] Last Admin: 11/16/16 10:02 Dose: 12.5 mg Ondansetron HCl (Zofran) 4 mg IV Q4-6HP PRN PRN Reason: Nausea And Vomiting Potassium Chloride (Klor-Con) 40 meq PO DAILYP PRN PRN Reason: K+ < 3.5 Senna/Docusate Sodium (Senna Plus Tablet) 1 tab PO HS [facility] Last Admin: 11/15/16 20:39 Dose: Not Given Sitagliptin Phosphate (Januvia) 100 mg PO DAILY [facility] Last Admin: 11/16/16 10:01 Dose: 100 mg Sodium Chloride (Saline Flush) 10 ml IV Q8 [facility] Last Admin: 11/16/16 05:48 Dose: 10 ml Sodium Chloride (Saline Flush) 10 ml IV UD PRN PRN Reason: FLUSH Trazodone HCl (Desyrel) 50 mg PO HSP PRN PRN Reason: Insomnia Warfarin Sodium (Coumadin) 3 mg PO DAILY@1400 [facility] Medical - PN: A/P - Time Spent With Patient Total time spent is greater than 50% in coordination of care (as documented) at patient's floor/unit and/or counseling patient: 25 - 35 minutes (1) Severe sepsis with acute organ dysfunction due to Gram negative bacteria Status: Acute Assessment and plan: * Severe sepsis secondary to Enterobacter bacteremia-Likely secondary to complicated UTI. Dc vancomycin/cefepime/Levaquin. Start ertapenem. Improving hemodynamics and renal function * Complicated Enterobacter UTI-continue antibiotic coverage and de-escalate based on cultures * left lower lobe infiltrate-ontinue antibiotic coverage * DM type II continue- Prandial insulin * hyperlipidemia on statin Plan * Start ertapenem- SpiCEmap organism * DC vancomycin/cefepime/Levaquin * clinically improving * Transfer to medical floor * close hemodynamic monitoring Current Visit: Yes Medical - PN: Qual - VTE Deep Vein Thrombosis/Pulmonary Embolism Present on Admission: No
[2016-11-16] MEDS ORDERED: WARFARIN 3 MG TABLET PO SCH (14:00)
[2016-11-16] MEDS ORDERED: MAGNESIUM SULFATE 2 GM/50 ML BAG IV PRN (14:45)
[2016-11-16] MEDS ORDERED: DEXTROSE 50% 50 ML VIAL IV PRN (14:45)
[2016-11-16] MEDS ORDERED: POTASSIUM CHLORIDE 20 MEQ PACKET PO PRN (14:45)
[2016-11-16] MEDS ORDERED: ONDANSETRON 4 MG/2 ML VIAL IV PRN (14:45)
[2016-11-16] MEDS: SENNOSIDES/DOCUSATE SODIUM 1 TAB TABLET PO SCH (20:27)
[2016-11-16] MEDS ORDERED: traZODone HCL 50 MG TABLET PO PRN (21:00)
[2016-11-16] MEDS ORDERED: HEPARIN 5,000 UNIT/ML VIAL SQ SCH (21:00)
[2016-11-17] MEDS: 0.9 % SODIUM CHLORIDE 10 ML SYRINGE IV SCH ×3 (05:00→21:03)
[2016-11-17 06:29] LABS: Mean Cell Volume 91.9 fL (80.0-100.0); Mean Corpuscular HGB Conc 32.8 g/dL (31.0-36.0); Mean Corpuscular Hemoglobin 30.2 pg (26.0-34.0); Platelet Count 284 K/mcL (140-440); RBC 2.84 M/mcL (4.50-5.90); Red Cell Distribution Width 14.7 % (11.5-14.5)
[2016-11-17 06:44] LABS: ALT/SGPT 11 U/l (0-40); Albumin 2.7 gm/dL (3.2-5.2); Alkaline Phosphatase 86 U/L (39-117); Bilirubin,Direct < 0.2 mg/dL (0.0-0.3); Blood Urea Nitrogen 23 mg/dl (8-23); Gamma Glutamyl Transpeptidase 46 U/L (8-61); Phosphorous 2.6 mg/dL (2.7-4.5)
[2016-11-17 07:34] LABS: Band Neutrophils % 8 % (0-10); Basophils % (Manual) 1 % (0-2); Eosinophils % (Manual) 3 % (0-7); Lymphocytes % 14 % (15-49); Monocytes % (Manual) 6 % (1-9); Platelet Estimate NORMAL (NORMAL); RBC Morphology NORMAL (NORMAL); Segmented Neutrophils % 67 % (38-78)
[2016-11-17] MEDS: INSULIN LISPRO 1 UNIT/0.01 ML UNIT SQ SCH ×4 (08:48→20:27)
[2016-11-17] MEDS: METOPROLOL TARTRATE 25 MG TABLET PO SCH ×2 (09:42→21:02)
[2016-11-17] MEDS: DOCUSATE SODIUM 100 MG CAPSULE PO SCH ×2 (09:42→20:27)
[2016-11-17] MEDS: sitaGLIPtin 50 MG TABLET PO SCH (09:42)
[2016-11-17] MEDS: FUROSEMIDE 20 MG TABLET PO SCH ×2 (09:43→21:03)
[2016-11-17] MEDS: CITALOPRAM 20 MG TABLET PO SCH (09:44)
--- NOTE | 2016-11-17 11:54 | Internal Med Progress Note ---
Medical - PN: Subj Patient information: Note initiated : 11/17/16 at 11:52 am Service Date, if different from initiated Date: [] Patient: Shekhar De La Cruz 89 y/o M admitted on 11/14/16 for Fever, Blood in Urine/ Septic Shock. Chief Complaint: [] Interval history: 11/14-atient admitted with severe sepsis with end organ dysfunction along with complicated UTI hematuria. White count 25,000.creatinine 1.7 Admitted to ICU. On aggressive crystalloids to keep map at goal. High-risk mortality based on [place] 2 score. Family made aware. 11/15- Patient clinically unchanged however white count at 32.7 with increasing 16 % band. Alert and responsive. Map at goal. Foleys draining cloudy urine.creatinine down from 1.7-1.5. Gram-negative javi and urine culture. sensitivities pending -11/16 patient doing well. White count down from 32,000 -> 13. no overnight fever chills nausea vomiting. Foleys draining clear urine. No hematuria. No telemetry events. Transfer to medical floor. No family at bedside. Enterobacter bacteremia sensitive to ertapenem. case management to coordinate SNF transfer 11/17- improving white count 11,200. Patient feels better. Afebrile. Foleys draining clear urine. No abdominal pain nausea vomiting CP/SOB. No overnight events. Anticipate discharge to SNF in 24 hours with outpatient ertapenem for 14 days for Enterobacter bacteremia coverage. recommend outpatient urology follow-up on discharge. creatinine 1.5. INR 2.2. - Constitutional Vitals: Vital Signs Temp Pulse Resp BP Pulse Ox 98.0 F 80 20 126/49 96 11/17/16 08:00 11/17/16 08:00 11/17/16 08:00 11/17/16 08:00 11/17/16 08:30 Period Temp Pulse Resp BP Sys/Lee Pulse Ox Last 24 Hr 97.8 F-99.3 F 6-82 16-24 101-149/49-76 88-98 Intake and Output 11/16/16 11/17/16 11/17/16 21:59 05:59 13:59 Intake Total 900 / 900 300 / 300 Output Total 500 / 500 2300 / 2300 Balance 400 / 400 -1999 / -1999 Weight 211 lb Intake & Output: Intake & Output 11/16/16 11/17/16 11/17/16 21:59 05:59 13:59 Intake Total 900 / 900 300 / 300 Output Total 500 / 500 2300 / 2300 Balance 400 / 400 -1999 / -1999 Weight 211 lb Intake: IV 500 / 500 Sodium Chloride 0.9% 500 500 / 500 ml @ 333.3 mls/hr IV Q24H [facility] with Vancomycin 1, 500 mg Rx#:[id number] Oral 400 / 400 300 / 300 Output: Urine Catheter Amount 500 / 500 2300 / 2300 Other: Meal Dinner Percent of Meal Consumed 50% Feeding Ability Assist with Tray Set Up General appearance: cooperative, no acute distress - Head Additional comments: nonlabored breathing Foleys draining clear urine alert and oriented no anxiety Medical - PN: Obj Da - Labs CBC & Chem 7: 11/17/16 04:52 11/17/16 04:52 Labs: Abnormal Lab Results 11/17/16 11/17/16 11/17/16 04:52 04:52 04:52 WBC 11.2 H RBC 2.84 L Hgb 8.6 L Hct 26.1 L RDW 14.7 H MPV Seg Neutrophils % Band Neutrophils % Lymphocytes % 14 L WBC Morphology Vacuolated Monocytes RBC Morphology Anisocytosis PT 25.8 H INR 2.3 H Carbon Dioxide BUN Creatinine 1.5 H Glucose Calcium 7.9 L Phosphorus 2.6 L Total Protein 5.5 L Albumin 2.7 L Albumin/Globulin Ratio 11/16/16 11/16/16 11/16/16 03:40 03:40 03:40 WBC 13.2 H RBC 2.78 L Hgb 8.4 L Hct 25.7 L RDW MPV Seg Neutrophils % Band Neutrophils % Lymphocytes % 13 L WBC Morphology Abnorm A Vacuolated Monocytes Few A RBC Morphology Anisocytosis PT 25.6 H INR 2.2 H Carbon Dioxide 21 L BUN 27 H Creatinine 1.5 H Glucose Calcium 7.9 L Phosphorus 2.6 L Total Protein 5.4 L Albumin 2.6 L Albumin/Globulin Ratio 0.9 L 11/15/16 11/15/16 11/15/16 07:25 03:30 03:30 WBC 32.7 H* RBC 2.78 L Hgb 8.3 L Hct 25.8 L RDW 14.8 H MPV 7.3 L Seg Neutrophils % 80 H Band Neutrophils % 16 H Lymphocytes % 2 L WBC Morphology Vacuolated Monocytes RBC Morphology Abnorm A Anisocytosis 1+ A PT 30.4 H INR 2.8 H Carbon Dioxide 19 L BUN 27 H Creatinine 1.5 H Glucose 110 H Calcium 7.7 L Phosphorus 2.6 L Total Protein 5.5 L Albumin 2.6 L Albumin/Globulin Ratio 0.9 L Meds: Medications Acetaminophen (Tylenol) 650 mg PO Q4-6HP PRN PRN Reason: PAIN/FEVER > 101 Last Admin: 11/16/16 21:25 Dose: 650 mg Citalopram Hydrobromide (Celexa) 20 mg PO QDAY [facility] Last Admin: 11/17/16 09:44 Dose: 20 mg Dextrose (Dextrose 50%) 0 ml IV UD PRN PRN Reason: Hypoglycemia Diagnostic Test (Pha) (Accu-Chek) 1 each FS [facility] Last Admin: 11/17/16 08:48 Dose: 1 each Docusate Sodium (Colace) 100 mg PO BID [facility] Last Admin: 11/17/16 09:42 Dose: 100 mg Furosemide (Lasix) 20 mg PO BID [facility] Last Admin: 11/17/16 09:43 Dose: 20 mg Heparin Sodium (Porcine) (Heparin Flush) 2 ml IV Q12 [facility] Last Admin: 11/17/16 09:45 Dose: 2 ml Ertapenem 1 gm/ Sodium (Chloride) 50 mls @ 100 mls/hr IV DAILY [facility] Magnesium Sulfate (Magnesium Sulfate) 2 gm in 50 mls @ 50 mls/hr IV UD PRN PRN Reason: MG = or < 1.7 Insulin Human Lispro (Humalog) 0 unit SQ [facility] PRN Reason: Protocol Last Admin: 11/17/16 08:48 Dose: Not Given Metoprolol Tartrate (Lopressor) 12.5 mg PO BID [facility] Last Admin: 11/17/16 09:42 Dose: 12.5 mg Ondansetron HCl (Zofran) 4 mg IV Q4-6HP PRN PRN Reason: Nausea And Vomiting Potassium Chloride (Klor-Con) 40 meq PO DAILYP PRN PRN Reason: K+ < 3.5 Senna/Docusate Sodium (Senna Plus Tablet) 1 tab PO HS [facility] Last Admin: 11/16/16 20:27 Dose: Not Given Sitagliptin Phosphate (Januvia) 50 mg PO DAILY [facility] Last Admin: 11/17/16 09:42 Dose: 50 mg Sodium Chloride (Saline Flush) 10 ml IV UD PRN PRN Reason: FLUSH Sodium Chloride (Saline Flush) 10 ml IV Q8 [facility] Last Admin: 11/17/16 05:00 Dose: 10 ml Trazodone HCl (Desyrel) 50 mg PO HSP PRN PRN Reason: Insomnia Last Admin: 11/16/16 22:50 Dose: 50 mg Warfarin Sodium (Coumadin) 3 mg PO DAILY@1400 [facility] Medical - PN: A/P - Time Spent With Patient Total time spent is greater than 50% in coordination of care (as documented) at patient's floor/unit and/or counseling patient: 15 - 24 minutes (1) Severe sepsis with acute organ dysfunction due to Gram negative bacteria Status: Acute Assessment and plan: * Enterobacter bacteremia. surveillance cultures negative. continue 14 days of ertapenem. * Severe sepsis secondary above-clinically resolved. [place] 11,000 [place] [id number] * Complicated Enterobacter UTI-continue antibiotic coverage and de-escalate based on cultures * left lower lobe infiltrate-Continue antibiotic coverage * DM type II continue- Prandial insulin.continue sitagliptin * hyperlipidemia on statin * history paroxysmal atrial fibrillation currently in sinus. continue metoprolol * history of Prostate cancer tamsulosin/Foleys catheter * anticoagulation-on Coumadin. INR therapeutic. Plan * continue ertapenem through 11/29 * SNF transfer in a.m. * aggressive physical therapy * outpatient neurology follow-up * Pre-existing medical condition management as above Current Visit: Yes Medical - PN: Qual - VTE Deep Vein Thrombosis/Pulmonary Embolism Present on Admission: No
[2016-11-17] MEDS: ERTAPENEM 1 GM in 0.9 % SODIUM CHLORIDE 50 ML IV SCH (12:00)
[2016-11-17] MEDS ORDERED: WARFARIN 3 MG TABLET PO SCH (14:00)
[2016-11-17] MEDS: SENNOSIDES/DOCUSATE SODIUM 1 TAB TABLET PO SCH (20:27)
[2016-11-17] MEDS: ACETAMINOPHEN 325 MG TABLET PO PRN (21:04)
[2016-11-18 05:00] LABS: Mean Cell Volume 91.1 fL (80.0-100.0); Mean Corpuscular HGB Conc 33.1 g/dL (31.0-36.0); Mean Corpuscular Hemoglobin 30.1 pg (26.0-34.0); Platelet Count 293 K/mcL (140-440); Red Cell Distribution Width 14.3 % (11.5-14.5)
[2016-11-18 05:31] LABS: ALT/SGPT 11 U/l (0-40); Albumin 2.7 gm/dL (3.2-5.2); Albumin/Globulin Ratio 0.9 (1.0-2.3); Alkaline Phosphatase 80 U/L (39-117); Bilirubin,Direct < 0.2 mg/dL (0.0-0.3); Blood Urea Nitrogen 21 mg/dl (8-23); Gamma Glutamyl Transpeptidase 47 U/L (8-61); Magnesium 1.7 mg/dL (1.6-2.5); Phosphorous 1.9 mg/dL (2.7-4.5); Uric Acid 5.5 mg/dL (2.5-8.0)
[2016-11-18] MEDS: 0.9 % SODIUM CHLORIDE 10 ML SYRINGE IV SCH (06:00)
[2016-11-18 07:23] LABS: Lymphocytes % 16 % (15-49); Monocytes % (Manual) 9 % (1-9); Platelet Estimate NORMAL (NORMAL); RBC Morphology NORMAL (NORMAL); Segmented Neutrophils % 75 % (38-78)
[2016-11-18] MEDS ORDERED: POTASSIUM CHLORIDE 20 MEQ/15 ML ML PT SCH (08:00)
--- NOTE | 2016-11-18 08:33 | Discharge Summary ---
Medical - DS: Prov Patient information: Note initiated : 11/18/16 at 8:31 am Service Date, if different from initiated Date: [] Patient: Shekhar De La Cruz 89 y/o M admitted on 11/14/16 for Fever, Blood in Urine/ Septic Shock. Chief Complaint: [] Date of admission: 11/14/16 23:19 Discharge date: 11/18/16 Primary care physician: [f_Reg Prim Care Provider] Medical - DS: Meds - Discharge Medications Prescriptions: Ertapenem [Invanz] 1 gm IV DAILY #12 vial Active and Home Medications: Home Medications citalopram 20 mg tablet 20 mg PO QDAY tab 04/04/16 [History Confirmed 11/15/16 Last Taken 11/14/16 09:00] Albuterol Sulfate [Ventolin] 2 puff INH Q4HP PRN 06/29/16 [History Confirmed Last Taken 07/23/16] Bisacodyl [Dulcolax] 10 mg OR DAILYP PRN 06/29/16 [History Confirmed 11/14/16 Last Taken 07/23/16] Docusate Sodium [Colace] 100 mg PO BID 06/29/16 [History Confirmed 11/15/16 Last Taken 11/14/16 09:00] Magnesium Hydroxide [Milk of Magnesia] 30 ml PO DAILYP PRN 06/29/16 [History Confirmed 11/15/16 Last Taken 11/14/16 09:00] Polyethylene Glycol 3350 [Miralax] 17 gm PO QDAYPC 06/29/16 [History Confirmed 11/15/16 Last Taken 11/14/16 09:00] Potassium Chloride 40 meq PO QDAY 06/29/16 [History Confirmed 11/15/16 Last Taken 11/14/16 09:00] Simvastatin [Zocor] 20 mg PO HS 06/29/16 [History Confirmed 11/15/16 Last Taken 11/13/16 21:00] glipiZIDE [Glucotrol] 10 mg PO ACB 06/29/16 [History Confirmed 11/15/16 Last Taken 11/14/16 09:00] sitaGLIPtin [Januvia] 100 mg PO DAILY 06/29/16 [History Confirmed 11/15/16 Last Taken 11/14/16 09:00] Acetaminophen [Tylenol] 650 mg PO Q4-6HP PRN #0 tab 07/04/16 [Rx Confirmed 11/14 Last Taken 07/23/16] Insulin Lispro [Humalog] See Protocol SQ ACHS #0 unit 07/04/16 [Rx Confirmed 10/03 Last Taken 11/14/16 17:00] Metoprolol Tartrate [Lopressor] 12.5 mg PO BID tab 07/04/16 [Rx Confirmed 11/15 Last Taken 11/14/16 09:00] Tamsulosin [Flomax] 0.4 mg PO HS cap 07/04/16 [Rx Confirmed 11/15/16 Last Taken 11/13/16 21:00] Ferrous Gluconate 324 mg PO BID 07/30/16 [History Confirmed 11/15/16 Last Taken 11/14/16 09:00] Loperamide [Imodium] 2 mg PO PRN PRN 07/30/16 [History Confirmed 11/14/16 Last Taken Unknown] Calcium Carbonate [Tums] 200 mg PO TID 09/04/16 [History Confirmed 11/15/16 Last Taken 11/14/16 09:00] Furosemide [Lasix] 20 mg PO BID 09/04/16 [History Confirmed 11/15/16 Last Taken 11/14/16 09:00] warfarin 3 mg tablet 3 mg PO DAILY tab 10/19/16 [History Confirmed 11/15/16 Last Taken 11/14/16 09:00] Ertapenem [Invanz] 1 gm IV DAILY #12 vial 11/18/16 [Rx Last Taken Unknown] Medical - DS: Hosp Hospital course: DISCHARGE DIAGNOSIS * Enterobacter bacteremia. surveillance cultures negative. continue additional 12 days of ertapenem. * Severe sepsis secondary above-clinically resolved. White count 11,000 down from [id number] * Complicated Enterobacter UTI-continue antibiotic coverage and de-escalate based on cultures * left lower lobe infiltrate-clinically resolved. Likely atelectasis * DM type II continue- Prandial insulin/ sitagliptin * hyperlipidemia on statin * history paroxysmal atrial fibrillation currently in sinus. continue metoprolol * history of Prostate cancer tamsulosin/Foleys catheter. Follow-up with urology in 1 week * anticoagulation for CVA prophylaxis-on Coumadin. INR therapeutic. BRIEF HOSPITAL COURSE Mr. De La Cruz is a 89 year old male who was admitted with severe sepsis/ bacteremia. 11/14-atient admitted with severe sepsis with end organ dysfunction along with complicated UTI hematuria. White count 25,000.creatinine 1.7 Admitted to ICU. On aggressive crystalloids to keep map at goal. High-risk mortality based on [place] 2 score. Family made aware. 11/15- Patient clinically unchanged however white count at 32.7 with increasing 16 % band. Alert and responsive. Map at goal. Foleys draining cloudy urine.creatinine down from 1.7-1.5. Gram-negative javi and urine culture. sensitivities pending -11/16 patient doing well. White count down from 32,000 -> 13. no overnight fever chills nausea vomiting. Foleys draining clear urine. No hematuria. No telemetry events. Transfer to medical floor. No family at bedside. Enterobacter bacteremia sensitive to ertapenem. case management to coordinate SNF transfer 11/17- improving white count 11,200. Patient feels better. Afebrile. Foleys draining clear urine. No abdominal pain nausea vomiting CP/SOB. No overnight events. Anticipate discharge to SNF in 24 hours with outpatient ertapenem for 14 days for Enterobacter bacteremia coverage. recommend outpatient urology follow-up on discharge. creatinine 1.5. INR 2.2. 11/18- discharging to SNF for additional 12 days of ertapenem. Surveillance cultures negative. white count at 10.4. potassium 3.1, prior discharge patient given 60 mEq replacement. detailed discharge instructions below. Continue aggressive was hospitalized in rehabilitation at SNF Discharge diagnosis: Enterobacter bacteremia - Time Spent with Patient Total time spent providing and/or coordinating discharge services: Medical - DS: Exam - Constitutional Vitals: Vital Signs Temp Pulse Resp BP BP Pulse Ox 11/18/16 08:00 98.3 F 18 149/65 91 11/18/16 04:00 98.7 F 62 18 128/70 94 11/18/16 00:00 98.0 F 57 L 18 110/60 93 11/17/16 19:37 98.0 F 70 18 117/66 92 11/17/16 16:00 98.8 F 18 139/67 92 11/17/16 12:00 98.9 F 16 97/42 93 Intake and Output 11/17/16 11/18/16 11/18/16 21:59 05:59 13:59 Intake Total 200 / 200 200 / 200 Output Total 1650 / 1650 2000 / 2000 Balance -1450 / -1450 -1800 / -1800 Intake: Oral 200 / 200 200 / 200 Output: Urine Catheter Amount 1649 Other: Meal Dinner Percent of Meal Consumed 50% Feeding Ability Assist with Tray Set Up Weight 211 lb General appearance: cooperative, no acute distress Additional comments: alert oriented nonlabored breathing nondistended abdomen Foleys draining clear urine Medical - DS: Data Labs on day of discharge: Labs from last 24 hours 11/18/16 11/18/16 11/18/16 04:00 04:00 04:00 WBC 10.4 RBC 2.90 L Hgb 8.7 L Hct 26.4 L MCV 91.1 MCH 30.1 MCHC 33.1 RDW 14.3 Plt Count 293 MPV 7.4 Total Counted 100 Seg Neutrophils % 75 Band Neutrophils % Not Reportable Lymphocytes % 16 Monocytes % (Manual) 9 Platelet Estimate Normal RBC Morphology Normal PT 28.6 H INR 2.6 H Sodium 135 Potassium 3.1 L Chloride 99 Carbon Dioxide 26 Anion Gap 10.0 BUN 21 Creatinine 1.5 H GFR Calculation 41 Glucose 90 Uric Acid 5.5 Calcium 8.0 L Phosphorus 1.9 L Magnesium 1.7 Total Bilirubin 0.3 Direct Bilirubin < 0.2 GGT 47 AST 18 ALT 11 Alkaline Phosphatase 80 Lactate Dehydrogenase 150 Total Protein 5.8 L Albumin 2.7 L Globulin 3.1 Albumin/Globulin Ratio 0.9 L Triglycerides 103 Preliminary micro results at discharge 11/15/16 09:30 Blood Culture - Preliminary Blood 11/15/16 09:22 Blood Culture - Preliminary Blood Medical - DS: A/P - Patient/Caregiver Discharge Instructions Activity: as per physical therapy, increase activity as tolerated Diet: Regular Diet Additional Instructions: Follow-up PCP in 5 days follow-up urology in 1-2 weeks I recommend SNF physician to check INR, CBC BMP UA as a posthospital follow-up Antibiotics ertapenem for 12 days IV Continue aggressive bowel regimen to prevent constipation Continue fall precautions Continue aggressive PT OT at [facility] All meals on chair sitting upright at 90 degrees to prevent aspiration Return to ER if worsening fever chills shortness of breath, diarrhea, bleeding Review risk and side effect profile of medications including antibiotics. Side effect may include mild to severe reaction including rash, diarrhea, cdiff and even which can be prevented by close follow-up with PCP and monitoring for side effects Refrain from smoking and alcohol Continue diet and activity as advised Discussed importance of medication adherence Please review medication list with patient prior to discharge Please schedule follow-up with PCP/Providers prior to discharge and provide printouts Portions of this chart may have been created with [employer] voice recognition software. Occasional wrong-word or ?sound-like? substitutions may have occurred due to the inherent limitations of voice recognition software. Please read the chart carefully and recognize, using context, where the substitutions have occurred. CC- PCP Prescriptions: Ertapenem [Invanz] 1 gm IV DAILY #12 vial - Problem Maintenance (1) Severe sepsis with acute organ dysfunction due to Gram negative bacteria Status: Acute - Follow up Plan Follow up with: Benton Ferrer MD [Physician] - Jamie Turner MD [Primary Care Provider] - Disposition: [facility] Prognosis: Fair Rehab Potential: Fair Overall status at discharge: patient is back to baseline Medical - DS: Qual - VTE Deep Vein Thrombosis/Pulmonary Embolism Present on Admission: No
[2016-11-18] MEDS: ERTAPENEM 1 GM in 0.9 % SODIUM CHLORIDE 50 ML IV SCH (09:19)
[2016-11-18] MEDS: INSULIN LISPRO 1 UNIT/0.01 ML UNIT SQ SCH (09:20)
[2016-11-18] MEDS: METOPROLOL TARTRATE 25 MG TABLET PO SCH (09:21)
[2016-11-18] MEDS: DOCUSATE SODIUM 100 MG CAPSULE PO SCH (09:21)
[2016-11-18] MEDS: CITALOPRAM 20 MG TABLET PO SCH (09:21)
[2016-11-18] MEDS: sitaGLIPtin 50 MG TABLET PO SCH (09:21)
[2016-11-18] MEDS: FUROSEMIDE 20 MG TABLET PO SCH (09:21)
== END 2016-11-18 10:10 | DRG 871 ==
LOC: ED 19:54 → ICU 23:19 → MEDSUR 11-16 16:04
PROVIDERS: ADMIT Internal Medicine; ATTEND Internal Medicine

== ENCOUNTER 2016-11-21 15:08 | Inpatient (IN) ==
[2016-11-21] MEDS: 0.9 % SODIUM CHLORIDE 1,000 ML IV SCH ×3 (15:50→20:47)
[2016-11-21 16:05] LABS: Basophils # (Auto) 0.1 K/mcL (0.0-0.3); Basophils % (Auto) 0.6 % (0.0-2.0); Eosinophils # (Auto) 0.4 K/mcL (0.0-0.7); Eosinophils % (Auto) 3.6 % (0.0-7.0); Granulocytes % (Auto) 63.2 % (38.0-78.0); Lymphocytes # (Auto) 1.8 K/mcL (1.5-4.8); Mean Cell Volume 91.8 fL (80.0-100.0); Mean Corpuscular HGB Conc 32.4 g/dL (31.0-36.0); Mean Corpuscular Hemoglobin 29.7 pg (26.0-34.0); Monocytes # (Auto) 1.5 K/mcL (0.1-0.9); Monocytes % (Auto) 14.6 % (1.0-9.0); Platelet Count 344 K/mcL (140-440); RBC 3.29 M/mcL (4.50-5.90); Red Cell Distribution Width 14.6 % (11.5-14.5)
--- NOTE | 2016-11-21 16:06 | XRay Report ---
CLINICAL INFORMATION: Wheezing and shortness of breath COMPARISON: 11/16/2016 FINDINGS: Left PICC line tip overlies the SVC azygos junction. The heart is mildly enlarged, but unchanged. Mediastinum and pulmonary vessels are normal. Mild bibasilar atelectasis appreciated. There is a tiny left pleural effusion. IMPRESSION: Mild cardiomegaly - stable. Mild bibasilar atelectasis Interpreted and Authenticated by: Owen Bowles 11/21/16
--- NOTE | 2016-11-21 16:09 | Cat Scan Report ---
CLINICAL INFORMATION: Diffuse level consciousness COMPARISON: 09/12/[address] TECHNIQUE: 2.5 mm helical slices were obtained in the skull base to vertex. Following reconstruction, axial reformatted images were reviewed at bone and parenchymal windows. FINDINGS: The ventricles, sulci, fissures, and cisterns are symmetrically enlarged compatible with moderate age-related atrophy. This shows slight progression from the previous study. There are no extra-axial fluid collection or mass appreciated. Moderate chronic ischemic changes in the cerebral white matter shows slight progression. There is no cerebral hemorrhage, mass effect, edema or other acute finding. Bone windows show no osseous abnormality. Tiny air-fluid level noted in the sphenoid sinus. IMPRESSION: Moderate atrophy and chronic ischemic changes in the cerebral white matter showing slight progression from a comparison study three years ago. There is no intracerebral hemorrhage or other acute finding. Acute sphenoid sinusitis.. Interpreted and Authenticated by: Owen Bowles 11/21/16
[2016-11-21 16:21] LABS: ALT/SGPT 11 U/l (0-40); Albumin/Globulin Ratio 0.9 (1.0-2.3); Alkaline Phosphatase 76 U/L (39-117); Blood Urea Nitrogen 28 mg/dl (8-23)
--- NOTE | 2016-11-21 17:03 | Emergency Department Note ---
Weakness HPI - General Chief complaint: Weakness Stated complaint: High INR, malaise Time Seen by Provider: 11/21/16 15:25 Source: EMS, RN notes reviewed Mode of arrival: ambulatory - History of Present Illness HPI Narrative: 89-year-old male presents with weakness and decreased level consciousness. He normally lives at [facility]. Procedure called his primary care provider regarding his INR 5.2. They're considering giving him some vitamin K but were concerned about his level of consciousness and so they sent him to the ER. Multiple family members here with him. They state since he was discharged for sepsis last week he has just not been the same. They state his level of consciousness and slowly declined. He is not eating or drinking anything according to family. Procedure reports he has had some hypotension and hypothermia. Family concerned he is not breathing right and seems to be gasping at times. They state he was septic from a urinary tract infection previously but they thought that was cleared up. They state the patient is a DNR but they would like a full workup to know what is going on with this patient. As far as we know he has not been febrile. Patient unable to answer any questions other than wants him I will say yes or no mumbling that is barely comprehensible. Context: recent illness - Related Data Home Medications Medication Instructions Recorded Confirmed citalopram 20 mg tablet 20 mg PO QDAY tab 04/04/16 11/21/16 Albuterol Sulfate [Ventolin] 2 puff INH Q4HP PRN 06/29/16 11/21/16 Bisacodyl [Dulcolax] 10 mg [place] DAILYP PRN 06/29/16 11/21/16 Docusate Sodium [Colace] 100 mg PO BID 06/29/16 11/21/16 Magnesium Hydroxide [Milk of 30 ml PO DAILYP PRN 06/29/16 11/21/16 Magnesia] Polyethylene Glycol 3350 [Miralax] 17 gm PO QDAYPC 06/29/16 11/21/16 Potassium Chloride 40 meq PO QDAY 06/29/16 11/21/16 Simvastatin [Zocor] 20 mg PO HS 06/29/16 11/21/16 glipiZIDE [Glucotrol] 10 mg PO ACB 06/29/16 11/21/16 sitaGLIPtin [Januvia] 100 mg PO DAILY 06/29/16 11/21/16 Ferrous Gluconate 324 mg PO BID 07/30/16 11/21/16 Loperamide [Imodium] 2 mg PO PRN PRN 07/30/16 11/21/16 Calcium Carbonate [Tums] 200 mg PO TID 09/04/16 11/21/16 Furosemide [Lasix] 20 mg PO BID 09/04/16 11/21/16 warfarin 3 mg tablet 3 mg PO DAILY tab 10/19/16 11/21/16 Previous Rx's Medication Instructions Recorded Acetaminophen [Tylenol] 650 mg PO Q4-6HP PRN #0 tab 07/04/16 Insulin Lispro [Humalog] See Protocol SQ ACHS #0 unit 07/04/16 Metoprolol Tartrate [Lopressor] 12.5 mg PO BID tab 07/04/16 Tamsulosin [Flomax] 0.4 mg PO HS cap 07/04/16 Ertapenem [Invanz] 1 gm IV DAILY #12 vial 11/18/16 Allergies Allergy/AdvReac Type Severity Reaction Status Date / Time No Known Drug Allergies Allergy Verified 11/21/16 15:17 Review of Systems Limitations: ROS unobtainable due to patients medical condition Past Medical History - Past Medical History Medical history: Reports: arthritis, atrial fibrillation, cancer (prostate), diabetes, hyperlipidemia, hypertension, renal disease, other (indwelling catheter for obstructive uropathy) Surgical history ED: Reports: cataract, herniorrhaphy, other (TUR, left knee arthroscopy) - Social History smoking status: Never smoker Alcohol use: Reports: None Drug use: Reports: none Physical Exam - General Limitations: altered mental status General appearance: lethargic - Head Head exam: atraumatic, normocephalic, normal inspection - Eye Eye exam: Present: normal appearance, PERRL. Absent: conjunctival injection - ENT ENT exam: normal exam, normal oropharynx, mucous membranes moist, TM's normal bilaterally, normal external ear exam - Neck Neck exam: Present: normal inspection, full ROM, trachea midline. Absent: tenderness, lymphadenopathy - Chest Chest inspection: Present: normal inspection, symmetric chest wall rise - Respiratory Respiratory exam: Present: respiratory distress (Mild to moderate respiratory distress with shallow breathing is labored at times. Oxygen saturation running around 80% on 10 L.), other (Rales to bases bilaterally) - Cardiovascular Cardiovascular exam: Present: regular rate - Abdominal Exam Abdominal exam: Present: soft, normal bowel sounds. Absent: distention, tenderness, guarding - Neurological Exam Neurological exam: Absent: alert (At times will open his eyes to voice and other times will not. Does grimace to pain. On occasion say yes or no but no other verbalization and at times incomprehensible.), oriented X3, CN II-XII intact (Patient unable to follow commands) - Psychiatric Psychiatric exam: Present: flat affect (Due to decreased level consciousness) - Skin Skin exam: Present: warm, dry, intact, normal color Course Course Narrative: Discussed failure to thrive and hypoxia with patient and his family. They would like to keep him comfortable here care by requesting for him to stay here where he can have more acute measures. I did discuss with hospitalist Dr. Heredia who is here currently seeing the patient for evaluation. Vital Signs Temperature 96.9 F L 11/21/16 15:09 Pulse Rate 80 11/21/16 15:09 Respiratory Rate 23 11/21/16 15:09 Blood Pressure 97/61 11/21/16 15:09 Pulse Oximetry (%) 95 11/21/16 15:09 Temperature 96.9 F L 11/21/16 15:09 Pulse Rate 64 11/21/16 17:48 Respiratory Rate 17 11/21/16 17:48 Blood Pressure 131/74 11/21/16 17:48 Pulse Oximetry (%) 100 11/21/16 17:48 Weakness - Lab Data Result diagrams: 11/21/16 15:26 11/21/16 15:26 Lab Results 11/21/16 11/21/16 11/21/16 Range/Units 15:26 15:26 15:26 WBC 10.1 (4.5-11.0) K/mcL RBC 3.29 L (4.50-5.90) M/mcL Hgb 9.8 L (13.5-16.5) g/dL Hct 30.2 L (41.0-55.0) % MCV 91.8 (80.0-100.0) fL MCH 29.7 (26.0-34.0) pg MCHC 32.4 (31.0-36.0) g/dL RDW 14.6 H (11.5-14.5) % Plt Count 344 (140-440) K/mcL MPV 7.1 L (7.4-10.4) fL Gran % 63.2 (38.0-78.0) % Lymph % (Auto) 18.0 (15.5-49.0) % Dillon % (Auto) 14.6 H (1.0-9.0) % Eos % (Auto) 3.6 (0.0-7.0) % Baso % (Auto) 0.6 (0.0-2.0) % Gran # 6.4 (1.8-8.0) K/mcL Lymph # 1.8 (1.5-4.8) K/mcL Dillon # 1.5 H (0.1-0.9) K/mcL Eos # 0.4 (0.0-0.7) K/mcL Baso # 0.1 (0.0-0.3) K/mcL PT 49.9 H (11.9-14.5) sec INR 5.2 H (0.9-1.1) VBG Lactic Acid (0.5-2.2) mmol/L Sodium 140 (133-145) mmol/L Potassium 3.9 (3.3-5.1) mmol/L Chloride 97 (96-108) mmol/L Carbon Dioxide 33 H (22-30) mmol/L Anion Gap 10.0 (8-16) BUN 28 H (8-23) mg/dl Creatinine 1.6 H (0.7-1.2) mg/dl GFR Calculation 38 Glucose 71 (70-105) mg/dL Calcium 8.7 (8.6-10.4) mg/dl Total Bilirubin 0.2 (0.0-1.0) mg/dL AST 22 (0-37) U/l ALT 11 (0-40) U/l Alkaline Phosphatase 76 (39-117) U/L Total Protein 6.5 (5.9-8.4) gm/dL Albumin 3.0 L (3.2-5.2) gm/dL Globulin 3.5 (2.2-3.7) gm/dL Albumin/Globulin Ratio 0.9 L (1.0-2.3) Urine Color Urine Appearance Urine pH (5.0-9.0) Ur Specific Lee (1.000-1.035) Urine Protein (NEG) mg/dL Urine Glucose (UA) (NEG) mg/dL Urine Ketones (NEG) mg/dL Urine Occult Blood (<0.03) mg/dL Urine Nitrate (NEG) Urine Bilirubin (NEG) mg/dL Urine Urobilinogen (NEG) mg/dL Ur Leukocyte Esterase (NEG) /uL Urine RBC (0-1) /hpf Urine WBC (0-4) /hpf Ur Squamous Epith Cells (0-4) /hpf Urine Bacteria (0) /hpf Hyaline Casts (0-2) /lpf Ur Culture Indicated? 11/21/16 11/21/16 Range/Units 15:26 17:59 WBC (4.5-11.0) K/mcL RBC (4.50-5.90) M/mcL Hgb (13.5-16.5) g/dL Hct (41.0-55.0) % MCV (80.0-100.0) fL MCH (26.0-34.0) pg MCHC (31.0-36.0) g/dL RDW (11.5-14.5) % Plt Count (140-440) K/mcL MPV (7.4-10.4) fL Gran % (38.0-78.0) % Lymph % (Auto) (15.5-49.0) % Dillon % (Auto) (1.0-9.0) % Eos % (Auto) (0.0-7.0) % Baso % (Auto) (0.0-2.0) % Gran # (1.8-8.0) K/mcL Lymph # (1.5-4.8) K/mcL Dillon # (0.1-0.9) K/mcL Eos # (0.0-0.7) K/mcL Baso # (0.0-0.3) K/mcL PT (11.9-14.5) sec INR (0.9-1.1) VBG Lactic Acid 0.9 (0.5-2.2) mmol/L Sodium (133-145) mmol/L Potassium (3.3-5.1) mmol/L Chloride (96-108) mmol/L Carbon Dioxide (22-30) mmol/L Anion Gap (8-16) BUN (8-23) mg/dl Creatinine (0.7-1.2) mg/dl GFR Calculation Glucose (70-105) mg/dL Calcium (8.6-10.4) mg/dl Total Bilirubin (0.0-1.0) mg/dL AST (0-37) U/l ALT (0-40) U/l Alkaline Phosphatase (39-117) U/L Total Protein (5.9-8.4) gm/dL Albumin (3.2-5.2) gm/dL Globulin (2.2-3.7) gm/dL Albumin/Globulin Ratio (1.0-2.3) Urine Color Red Urine Appearance Cloudy Urine pH 6.0 (5.0-9.0) Ur Specific Lee 1.016 (1.000-1.035) Urine Protein 100 A (NEG) mg/dL Urine Glucose (UA) Negative (NEG) mg/dL Urine Ketones Neg (NEG) mg/dL Urine Occult Blood >=1.0 A (<0.03) mg/dL Urine Nitrate Neg (NEG) Urine Bilirubin Neg (NEG) mg/dL Urine Urobilinogen Neg (NEG) mg/dL Ur Leukocyte Esterase 250 A (NEG) /uL Urine RBC > 182 H (0-1) /hpf Urine WBC > 182 H (0-4) /hpf Ur Squamous Epith Cells 0 (0-4) /hpf Urine Bacteria 0 (0) /hpf Hyaline Casts 39 H (0-2) /lpf Ur Culture Indicated? Yes Disposition Clinical Impression: Hypoxia, Dehydration, mild, Failure to thrive Disposition: Still a Patient Condition: Serious Referrals: Jamie Turner MD [Primary Care Provider] -
[2016-11-21] MEDS ORDERED: 0.9 % SODIUM CHLORIDE 1,000 ML IV SCH (18:15)
[2016-11-21 18:41] LABS: Appearance,Urine CLOUDY; Bacteria,Urine 0 /hpf (0); Bilirubin,Urine NEG (NEG); Color,Urine RED; Glucose,Urine (UA) NEGATIVE (NEG); Leukocyte Esterase,Urine 250 /uL (NEG); Nitrate,Urine NEG (NEG); Protein,Urine 100 mg/dL (NEG); Specific Gravity,Urine 1.016 (1.000-1.035); Urine Blood >=1.0 mg/dL (<0.03); Urine Hyaline Cast 39 /lpf (0-2); Urine RBC > 182 /hpf (0-1); Urine Squamous Epithelial Cell 0 /hpf (0-4); Urine WBC > 182 /hpf (0-4); Urobilinogen,Urine NEG (NEG)
--- NOTE | 2016-11-21 18:59 | Internal Med History&Physical ---
Medical - H&P: [facility] Patient information: Note initiated : 11/21/16 at 6:59 pm Service Date, if different from initiated Date: [] Patient: Shekhar De La Cruz a 89 y/o M admitted on for High INR, malaise. Chief Complaint: [] History of present illness: Mr. De La Cruz is a 89 year old male with recently discharged from the hospital () for septic shock secondary to entero bacter uti. and on Ivan[facility] for same at [place], presented to the ER today for elevated INR and weakness The patient is a poor historian and history is provided by his daughter and other members of family. Patient was near baseline when he was discharged from the facility, but after being transferred to the [place] the patient over the next day became more weak and tired, had decreased PO intake and had decreased fluid intake. The patient became more confused and incoherent. Given the worsening in the patients condition blood work was done which showed elevated INR > 5.0 and the patient was sent to the ER for further management In the ER the patient became hypoxic, requiring a non rebreather to maintain his oxygen levels, His X ray chest is neg, besides some atelectasis, Head ct neg for acute cva abut acute sinusitis noted, INR 5.1. The patient coughed some in the ER and then his oxygen saturations started to become normal again. His mental status however still remained labile. Hospitalist service was called for further admission to the hospital. Pts Daughter provided history, ROS not possible, but pt denies any other symptoms. The patient has h/o ca prostate and chr urine retention, he has intermittent hematuria due to same, and follows with Dr Flanagan. I reviewed the goals of treatment with the family, They want patient to be kept comfortable, and if possible treat the underlying etiology. But would consider palliative care if the patient does not seem to respond to treatment. ROS unobtainable: due to mental status Medical - H&P: [facility] Medical history: Medical History Dehydration, mild (Acute) Failure to thrive (Acute) Hypoxia (Acute) Abdominal pain (Acute) Acute kidney injury (Acute) Acute urinary retention (Acute) Allergic rhinitis (Acute) Atrial fibrillation (Acute) Atrial fibrillation (Acute) Atrial fibrillation with rapid ventricular response (Acute) Bronchitis (Acute) Chronic kidney disease, stage III (moderate) (Acute) Closed left hip fracture (Acute) Complicated UTI (urinary tract infection) (Acute) Diabetes mellitus, type II (Acute) Eczema (Acute) Fracture (Acute) History of colonic polyps (Acute) Hyperkalemia (Acute) Hyperlipidemia (Acute) Hypertension, essential (Acute) Hypomagnesemia (Acute) Hypophosphatemia (Acute) Obesity (Acute) Obstructive uropathy (Acute) Osteoarthrosis, localized, primary, involving lower leg (Acute) Persistent cough (Acute) Pneumonia (Acute) Renal failure (Acute) Restless leg syndrome (Acute) Sepsis (Acute) Severe sepsis with acute organ dysfunction due to Gram negative bacteria (Acute) Shortness of Breath (Acute) Upper respiratory infection (Acute) Weakness (Acute) Anticoagulant long-term use (Chronic) History of prostate cancer (Chronic) Hyperkalemia (Resolved) Surgical history: Past Surgical History History of cataract surgery (Acute) History of hernia repair (Acute) History of transurethral resection of prostate (Acute) Status post arthroscopic surgery of left knee (Acute) Pertinent family history: unable Social history: Lives in [place], no smoker no etoh. Medical - H&P: Meds Home Medications Medication Instructions Recorded Confirmed Type citalopram 20 mg tablet 20 mg PO QDAY tab 04/04/16 11/21/16 History Albuterol Sulfate [Ventolin] 2 puff INH Q4HP PRN 06/29/16 11/21/16 History Bisacodyl [Dulcolax] 10 mg [place] DAILYP PRN 06/29/16 11/21/16 History Docusate Sodium [Colace] 100 mg PO BID 06/29/16 11/21/16 History Magnesium Hydroxide [Milk of 30 ml PO DAILYP PRN 06/29/16 11/21/16 History Magnesia] Polyethylene Glycol 3350 [Miralax] 17 gm PO QDAYPC 06/29/16 11/21/16 History Potassium Chloride 40 meq PO QDAY 06/29/16 11/21/16 History Simvastatin [Zocor] 20 mg PO HS 06/29/16 11/21/16 History glipiZIDE [Glucotrol] 10 mg PO ACB 06/29/16 11/21/16 History sitaGLIPtin [Januvia] 100 mg PO DAILY 06/29/16 11/21/16 History Acetaminophen [Tylenol] 650 mg PO Q4-6HP PRN #0 tab 07/04/16 11/21/16 Rx Insulin Lispro [Humalog] See Protocol SQ ACHS #0 unit 07/04/16 11/21/16 Rx Metoprolol Tartrate [Lopressor] 12.5 mg PO BID tab 07/04/16 11/21/16 Rx Tamsulosin [Flomax] 0.4 mg PO HS cap 07/04/16 11/21/16 Rx Ferrous Gluconate 324 mg PO BID 07/30/16 11/21/16 History Loperamide [Imodium] 2 mg PO PRN PRN 07/30/16 11/21/16 History Calcium Carbonate [Tums] 200 mg PO TID 09/04/16 11/21/16 History Furosemide [Lasix] 20 mg PO BID 09/04/16 11/21/16 History warfarin 3 mg tablet 3 mg PO DAILY tab 10/19/16 11/21/16 History Ertapenem [Invanz] 1 gm IV DAILY #12 vial 11/18/16 11/21/16 Rx Allergies Allergy/AdvReac Type Severity Reaction Status Date / Time No Known Drug Allergies Allergy Verified 11/21/16 15:17 Medical - H&P: Exam - Constitutional Vitals: Temp Pulse Resp BP Pulse Ox 96.9 F L 64 17 131/74 100 11/21/16 15:09 11/21/16 17:48 11/21/16 17:48 11/21/16 17:48 11/21/16 17:48 General appearance: cooperative, no acute distress - Head Head exam: Present: atraumatic, normal inspection, normocephalic - Eye Eye exam: Present: PERRL. Absent: periorbital swelling, periorbital tenderness , scleral icterus - ENT ENT exam: Present: mucous membranes dry Additional comments: hard of hearing. - Neck Neck exam: Present: normal inspection - Respiratory Respiratory exam: Present: prolonged expiratory phase Additional comments: conducted upper airway breath sounds noted. - Cardiovascular Cardiovascular exam: Present: normal rate and rhythm, +S1, +S2 - GI/Abdominal GI/Abdominal exam: Present: normal bowel sounds, soft. Absent: rigid, tenderness - Extremities Exam Extremities exam: Present: pedal edema - Back Exam Back exam: Present: normal inspection - Neurological Exam Additional comments: [id number] moving all extremities CN grossly intact no gross focal deficit noted. - Psychiatric Psychiatric exam: Absent: agitated, anxious Additional comments: confused - Skin Skin exam: Present: warm. Absent: rash, urticaria Medical - H&P: Reslt - Labs CBC & Chem 7: 11/21/16 15:26 11/21/16 15:26 Labs: Short CBC 11/21/16 Range/Units 15:26 WBC 10.1 (4.5-11.0) K/mcL Hgb 9.8 L (13.5-16.5) g/dL Hct 30.2 L (41.0-55.0) % Plt Count 344 (140-440) K/mcL BMP 11/21/16 15:26 Sodium 140 Potassium 3.9 Chloride 97 Carbon Dioxide 33 H BUN 28 H Creatinine 1.6 H Glucose 71 Calcium 8.7 Liver Function 11/21/16 Range/Units 15:26 Total Bilirubin 0.2 (0.0-1.0) mg/dL AST 22 (0-37) U/l ALT 11 (0-40) U/l Alkaline Phosphatase 76 (39-117) U/L Albumin 3.0 L (3.2-5.2) gm/dL Urine 11/21/16 Range/Units 17:59 Urine Color Red Urine Appearance Cloudy Urine pH 6.0 (5.0-9.0) Ur Specific [place] 1.016 (1.000-1.035) Urine Protein 100 A (NEG) mg/dL Urine Glucose (UA) Negative (NEG) mg/dL - Imaging and Cardiology CT scan - head Additional comments: no acute changes, sinusitis noted. Chest x-ray Additional comments: no acute infiltrate. Medical - H&P: A/P (1) Dehydration, mild Current visit: Yes Status: Acute (2) Failure to thrive Current visit: Yes Status: Acute (3) Hypoxia Current visit: Yes Status: Acute (4) Acute urinary retention Current visit: No Status: Acute (5) Atrial fibrillation Current visit: No Status: Acute (6) Complicated UTI (urinary tract infection) Current visit: No Status: Acute (7) Diabetes mellitus, type II Current visit: No Status: Acute - Narrative A/P Narrative: This is a pleasant 89 yr gentleman who presented as his po intake declined in the [place] wbc count is normal, no e/o sepsis his ua suggestive of UTI, which is being treated with enterobacter Will changes his joseph in AM continue invanz via picc IV fluids for now ST eval in AM Pt has difficulty in coughing and clearing his secreations, CT head neg for CVA his hypoxia was transient, likely from mucous plugs/ PE unlikely given supratherapeutic INR. Elevated INR >5, no bleeding, monitor for now. no indication to reverse hold coumadin. start on appetite stimulant,/ megace in AM (pt already anticoagulated) Code - DNR/ comfort
[2016-11-21] MEDS ORDERED: BISACODYL 10 MG SUPP.RECT PR PRN (20:02)
[2016-11-21] MEDS ORDERED: DEXTROSE 50% 50 ML VIAL IV PRN (20:02)
[2016-11-21] MEDS ORDERED: BISACODYL 5 MG TABLET PO PRN (20:02)
[2016-11-21] MEDS ORDERED: ACETAMINOPHEN 325 MG TABLET PO PRN (20:02)
[2016-11-21] MEDS ORDERED: ONDANSETRON 4 MG/2 ML VIAL IV PRN (20:02)
[2016-11-21] MEDS ORDERED: IPRATROPIUM/ALBUTEROL 3 ML AMPUL.NEB NEB ONE (20:35)
[2016-11-21] MEDS: DOCUSATE SODIUM 100 MG CAPSULE PO SCH (20:37)
[2016-11-21] MEDS: SIMVASTATIN 20 MG TABLET PO SCH (20:38)
[2016-11-21] MEDS: TAMSULOSIN 0.4 MG CAPSULE PO SCH (20:38)
[2016-11-21] MEDS: IPRATROPIUM/ALBUTEROL 3 ML AMPUL.NEB NEB SCH ×2 (20:41→23:27)
[2016-11-21] MEDS: METOPROLOL TARTRATE 25 MG TABLET PO SCH (22:07)
[2016-11-21] MEDS: INSULIN LISPRO 1 UNIT/0.01 ML UNIT SQ SCH (22:07)
[2016-11-21] MEDS: FAMOTIDINE/PF 20 MG/2 ML VIAL IV SCH (22:08)
[2016-11-22] MEDS: IPRATROPIUM/ALBUTEROL 3 ML AMPUL.NEB NEB SCH ×6 (04:05→23:28)
[2016-11-22] MEDS: 0.9 % SODIUM CHLORIDE 1,000 ML IV SCH ×2 (05:41→17:48)
[2016-11-22 05:51] LABS: Basophils # (Auto) 0.1 K/mcL (0.0-0.3); Basophils % (Auto) 0.6 % (0.0-2.0); Eosinophils # (Auto) 0.4 K/mcL (0.0-0.7); Eosinophils % (Auto) 2.9 % (0.0-7.0); Granulocytes % (Auto) 61.4 % (38.0-78.0); Lymphocytes # (Auto) 3.4 K/mcL (1.5-4.8); Lymphocytes % (Auto) 24.2 % (15.5-49.0); Mean Corpuscular HGB Conc 32.7 g/dL (31.0-36.0); Mean Corpuscular Hemoglobin 30.1 pg (26.0-34.0); Monocytes # (Auto) 1.5 K/mcL (0.1-0.9); Monocytes % (Auto) 10.9 % (1.0-9.0); Platelet Count 346 K/mcL (140-440); RBC 3.17 M/mcL (4.50-5.90); Red Cell Distribution Width 14.7 % (11.5-14.5)
[2016-11-22 06:16] LABS: ALT/SGPT 10 U/l (0-40); Albumin/Globulin Ratio 0.9 (1.0-2.3); Alkaline Phosphatase 73 U/L (39-117); Bilirubin,Direct < 0.2 mg/dL (0.0-0.3); Blood Urea Nitrogen 24 mg/dl (8-23); Gamma Glutamyl Transpeptidase 42 U/L (8-61); Magnesium 1.7 mg/dL (1.6-2.5); Phosphorous 2.6 mg/dL (2.7-4.5); Uric Acid 7.8 mg/dL (2.5-8.0)
[2016-11-22] MEDS: INSULIN LISPRO 1 UNIT/0.01 ML UNIT SQ SCH ×4 (07:38→21:05)
[2016-11-22] MEDS ORDERED: ERTAPENEM 1 GM in 0.9 % SODIUM CHLORIDE 50 ML IV SCH (09:00)
[2016-11-22] MEDS ORDERED: ERTAPENEM 1 GM VIAL IV SCH (09:00)
[2016-11-22] MEDS: METOPROLOL TARTRATE 25 MG TABLET PO SCH ×2 (11:44→20:44)
[2016-11-22] MEDS: CITALOPRAM 20 MG TABLET PO SCH (11:44)
[2016-11-22] MEDS: DOCUSATE SODIUM 100 MG CAPSULE PO SCH ×2 (11:51→21:05)
[2016-11-22] MEDS: POTASSIUM CHLORIDE 20 MEQ TABLET PO SCH (11:54)
[2016-11-22] MEDS: POLYMYXIN B OU SCH ×3 (12:04→20:45)
[2016-11-22] MEDS: [UNRECOGNIZED DRUG - OTHER] OU SCH ×3 (12:04→20:45)
[2016-11-22] MEDS: MEGESTROL ACETATE 400 MG/10 ML ORAL.SUSP PO SCH ×2 (12:07→20:40)
--- NOTE | 2016-11-22 13:37 | Internal Med Progress Note ---
Medical - PN: Subj Patient information: Note initiated : 11/22/16 at 1:33 pm Service Date, if different from initiated Date: [] Patient: Shekhar De La Cruz a 89 y/o M admitted on 11/22/16 for High INR, Malaise/ Dehydration, Failure to Thrive. Chief Complaint: [] Interval history: 11/21 Mr. De La Cruz is a 89 year old male with recently discharged from the hospital (11/18/16) for septic shock secondary to entero bacter uti. and on Ivanz for same at [place], presented to the ER for elevated INR and weakness, decreased mentation and decine in po intake. Patient was worked up in the ER and no acute source of infection noted. CT head showed sphenoid sinusitis, ua was positive for infection, cultures sent. wbc was not elevated on presentation. CXR reported negative. CT head neg for acute intracranial process. Pt also dehydrated due to decreased po intake. 11/22 Patient seen examined, patient had no acute overnight events, hard of hearing and denies any complaints, is pleasanltly confused and has waxing and waning mentation, which is better than yesterday. He is able to tolerate PO diet, and Diet to be resumed as per ST recommendations. His wbc count is up today, etiology uncertain. Given his sinusitis, and h/o DM, will change invanz to imipenum (adjust for renal function) this should cover for the enterobacter and possible pseudomonas is present in the sinus. Will change joseph today. Family at bedside updated on patients condition. Pertinent ROS: unable due to mental condition. - Constitutional Vitals: Vital Signs Temp Pulse Resp BP Pulse Ox 97.9 F 82 20 135/66 97 11/22/16 12:00 11/22/16 11:57 11/22/16 12:00 11/22/16 12:00 11/22/16 12:00 Period Temp Pulse Resp BP Sys/Lee Pulse Ox Last 24 Hr 97.9 F 82 16-20 135/66 97 Intake and Output 11/21/16 11/22/16 11/22/16 21:59 05:59 13:59 Intake Total 50 / 50 Balance 50 / 50 Intake & Output: Intake & Output 11/21/16 11/22/16 11/22/16 21:59 05:59 13:59 Intake Total 50 / 50 Balance 50 / 50 Intake: IV 50 / 50 Sodium Chloride 0.9% 50 50 / 50 ml @ 100 mls/hr IV Q24H [facility] with INVanz 1 GM Rx#: [id number] Exam: Constitutional; Afebrile, awake, confused. Eyes- No icterus, Pupils equal, reactive, No periorbital swelling Ears- Ext ear normal, hearing hard to conversation. Neck- Midline trachea, supple Respiratory system: Air Entry equal on both sides, mild basilar crackles noted , no wheezing or rhonchi. CVS- Rate rhythm regular, S1,S2 heard, no gallop, no rub. Abdomen- Soft nontender abdomen, no organomegaly, no tenderness, no guarding or rigidity, [employer]NAL[employer]IS- AOOx0, moving all extremities, no focal deficit noted. Medical - PN: Obj Da - Labs CBC & Chem 7: 11/22/16 04:18 11/22/16 04:18 Meds: Medications Acetaminophen (Tylenol) 650 mg PO Q6HP PRN PRN Reason: PAIN/FEVER > 101 Albuterol/Ipratropium (Duoneb) 3 ml NEB Q4HRT [facility] Last Admin: 11/22/16 11:51 Dose: 3 ml Bisacodyl (Dulcolax) 10 mg MT Q3DP PRN PRN Reason: Constipation Bisacodyl (Dulcolax) 10 mg PO DAILYP PRN PRN Reason: Constipation Citalopram Hydrobromide (Celexa) 20 mg PO QDAY [facility] Last Admin: 11/22/16 11:44 Dose: 20 mg Dextrose (Dextrose 50%) 0 ml IV UD PRN PRN Reason: Hypoglycemia Diagnostic Test (Pha) (Accu-Chek) 1 each FS ACHS [facility] Last Admin: 11/22/16 11:57 Dose: 1 each Docusate Sodium (Colace) 100 mg PO BID [facility] Last Admin: 11/22/16 11:51 Dose: 100 mg Famotidine (Pepcid) 20 mg IV QHS [facility] Last Admin: 11/21/16 22:08 Dose: 20 mg Sodium Chloride (Sodium Chloride 0.9%) 1,000 mls @ 100 mls/hr IV .Q10H [facility] Last Admin: 11/22/16 05:41 Dose: 100 mls/hr Imipenem/Cilastatin Sodium 500 (mg/ Sodium Chloride) 100 mls @ 100 mls/hr IV Q8H [facility] Insulin Human Lispro (Humalog) 0 unit SQ ACHS [facility] PRN Reason: Protocol Last Admin: 11/22/16 11:59 Dose: Not Given Megestrol Acetate (Megace) 400 mg PO BID [facility] Last Admin: 11/22/16 12:07 Dose: Not Given Metoprolol Tartrate (Lopressor) 12.5 mg PO BID [facility] Last Admin: 11/22/16 11:44 Dose: 12.5 mg Trimethoprim Sulfate & Polymyxin B Ophthalmic Solution 0 dose OU QID [facility] Last Admin: 11/22/16 12:04 Dose: 1 dose Ondansetron HCl (Zofran) 4 mg IV Q4HP PRN PRN Reason: Nausea And Vomiting Potassium Chloride (Kdur) 40 meq PO QAMCC [facility] Last Admin: 11/22/16 11:54 Dose: Not Given Simvastatin (Zocor) 20 mg PO [facility] Last Admin: 11/21/16 20:38 Dose: Not Given Tamsulosin HCl (Flomax) 0.4 mg PO [facility] Last Admin: 11/21/16 20:38 Dose: Not Given Warfarin Sodium (Coumadin Per Pharmacy) 1 order PO [facility] Medical - PN: A/P - Time Spent With Patient Total time spent is greater than 50% in coordination of care (as documented) at patient's floor/unit and/or counseling patient: (1) Dehydration, mild Status: Acute Current Visit: Yes (2) Failure to thrive Status: Acute Current Visit: Yes (3) Hypoxia Status: Acute Current Visit: Yes (4) Acute urinary retention Status: Acute Current Visit: No (5) Atrial fibrillation Status: Acute Current Visit: No (6) Complicated UTI (urinary tract infection) Status: Acute Current Visit: No (7) Diabetes mellitus, type II Status: Acute Current Visit: No (8) Sphenoid sinusitis Status: Acute Current Visit: Yes - Narrative A/P Narrative: Change Invanz to Imipenum to expand coverage to pseudomonas in light of sinusitis and Diabetes ST eval for Diet recommendations. Continue with IV fluids Follow cultures Glucose seems well controlled for now. INr still high, but improving, given his poor intake and h/o Ca prostate, will start on megace to see if the patient appetite improves. given worsening wbc count this AM, change in ABX and need for ongoing hydration. Pt switched to inpatient status. Medical - PN: Qual - Stroke Symptom Onset Unknown: No - VTE Deep Vein Thrombosis/Pulmonary Embolism Present on Admission: No
[2016-11-22] MEDS: IMIPENEM/CILASTATIN SODIUM 500 MG in 0.9 % SODIUM CHLORIDE 100 ML IV SCH ×2 (14:38→21:36)
[2016-11-22] MEDS ORDERED: MAGNESIUM SULFATE 8.12 MEQ in DEXTROSE 5% IN WATER 50 ML IV PRN (15:34)
[2016-11-22] MEDS: TAMSULOSIN 0.4 MG CAPSULE PO SCH (20:44)
[2016-11-22] MEDS: SIMVASTATIN 20 MG TABLET PO SCH (20:45)
[2016-11-22] MEDS: FAMOTIDINE/PF 20 MG/2 ML VIAL IV SCH (20:45)
[2016-11-23] MEDS: IPRATROPIUM/ALBUTEROL 3 ML AMPUL.NEB NEB SCH ×6 (02:54→23:14)
[2016-11-23] MEDS: 0.9 % SODIUM CHLORIDE 1,000 ML IV SCH ×5 (05:08→22:03)
[2016-11-23] MEDS: IMIPENEM/CILASTATIN SODIUM 500 MG in 0.9 % SODIUM CHLORIDE 100 ML IV SCH ×3 (05:09→22:39)
[2016-11-23 05:50] LABS: Basophils # (Auto) 0.1 K/mcL (0.0-0.3); Basophils % (Auto) 0.6 % (0.0-2.0); Eosinophils # (Auto) 0.3 K/mcL (0.0-0.7); Eosinophils % (Auto) 2.9 % (0.0-7.0); Granulocytes % (Auto) 69.8 % (38.0-78.0); Lymphocytes # (Auto) 1.9 K/mcL (1.5-4.8); Lymphocytes % (Auto) 15.9 % (15.5-49.0); Mean Cell Volume 91.2 fL (80.0-100.0); Mean Corpuscular HGB Conc 32.5 g/dL (31.0-36.0); Mean Corpuscular Hemoglobin 29.6 pg (26.0-34.0); Monocytes # (Auto) 1.3 K/mcL (0.1-0.9); Monocytes % (Auto) 10.8 % (1.0-9.0); Platelet Count 322 K/mcL (140-440); RBC 2.87 M/mcL (4.50-5.90); Red Cell Distribution Width 14.6 % (11.5-14.5)
[2016-11-23 06:58] LABS: ALT/SGPT 8 U/l (0-40); Albumin 2.8 gm/dL (3.2-5.2); Albumin/Globulin Ratio 1.1 (1.0-2.3); Alkaline Phosphatase 66 U/L (39-117); Bilirubin,Direct < 0.2 mg/dL (0.0-0.3); Blood Urea Nitrogen 18 mg/dl (8-23); Gamma Glutamyl Transpeptidase 35 U/L (8-61); Magnesium 1.9 mg/dL (1.6-2.5); Phosphorous 1.9 mg/dL (2.7-4.5); Uric Acid 7.1 mg/dL (2.5-8.0)
[2016-11-23] MEDS: INSULIN LISPRO 1 UNIT/0.01 ML UNIT SQ SCH ×5 (07:26→22:02)
[2016-11-23] MEDS: POTASSIUM CHLORIDE 20 MEQ TABLET PO SCH (10:04)
[2016-11-23] MEDS: CITALOPRAM 20 MG TABLET PO SCH (10:05)
[2016-11-23] MEDS: METOPROLOL TARTRATE 25 MG TABLET PO SCH ×2 (10:05→20:50)
[2016-11-23] MEDS: DOCUSATE SODIUM 100 MG CAPSULE PO SCH ×2 (10:05→20:52)
[2016-11-23] MEDS: MEGESTROL ACETATE 400 MG/10 ML ORAL.SUSP PO SCH ×2 (10:06→20:51)
[2016-11-23] MEDS: POLYMYXIN B OU SCH ×4 (10:08→20:50)
[2016-11-23] MEDS: [UNRECOGNIZED DRUG - OTHER] OU SCH ×4 (10:08→20:50)
[2016-11-23] MEDS ORDERED: BISACODYL 10 MG SUPP.RECT PR PRN (11:43)
[2016-11-23] MEDS ORDERED: ONDANSETRON 4 MG/2 ML VIAL IV PRN (11:43)
[2016-11-23] MEDS ORDERED: ACETAMINOPHEN 325 MG TABLET PO PRN (11:43)
--- NOTE | 2016-11-23 11:58 | Internal Med Progress Note ---
Medical - PN: Subj Patient information: Note initiated : 11/23/16 at 11:57 am Service Date, if different from initiated Date: [] Patient: Shekhar De La Cruz a 89 y/o M admitted on 11/22/16 for High INR, Malaise/ Dehydration, Failure to Thrive. Chief Complaint: [] Interval history: on service note: History of present illness: 11/21/16: Mr. De La Cruz is a 89 year old male with recently discharged from the hospital (11/18/16) for septic shock secondary to enterobacter uti. and on Ivanz for same at [place], presented to the ER for elevated INR and weakness, decreased mentation and decine in po intake. Patient was worked up in the ER and no acute source of infection noted. CT head showed sphenoid sinusitis, ua was positive for infection, cultures sent. wbc was not elevated on presentation. CXR reported negative. CT head neg for acute intracranial process. Pt also dehydrated due to decreased po intake. 11/22 Patient seen examined, patient had no acute overnight events, hard of hearing and denies any complaints, is pleasanltly confused and has waxing and waning mentation, which is better than yesterday. He is able to tolerate PO diet, and Diet to be resumed as per ST recommendations. His wbc count is up today, etiology uncertain. Given his sinusitis, and h/o DM, will change invanz to imipenum (adjust for renal function) this should cover for the enterobacter and possible pseudomonas is present in the sinus. Will change joseph today. Family at bedside updated on patients condition. 11/23/16: the nurses tell me they changed his Joseph catheter yesterday, and it was grosslypurulent. although vital signs been fairly stable overnight, the family notes the patient seems more confused, and at times agitated, today. They also note, however, that he is moving his arms and legs a lot more, and previously had seemed too weak to do much moving. the patient is clearly confused, and really cannot answer any questions or do much in the way of following commands today. He does occasionally try to sit up , and an apparent attempt to get out of bed. The family reports that up until a couple of weeks ago he was very sharp mentally. He does not have known dementia. Medical History Dehydration, mild (Acute) Failure to thrive (Acute) Hypoxia (Acute) Abdominal pain (Acute) Acute kidney injury (Acute) Acute urinary retention (Acute) Allergic rhinitis (Acute) Atrial fibrillation (Acute) Atrial fibrillation (Acute) Atrial fibrillation with rapid ventricular response (Acute) Bronchitis (Acute) Chronic kidney disease, stage III (moderate) (Acute) Closed left hip fracture (Acute) Complicated UTI (urinary tract infection) (Acute) Diabetes mellitus, type II (Acute) Eczema (Acute) Fracture (Acute) History of colonic polyps (Acute) Hyperkalemia (Acute) Hyperlipidemia (Acute) Hypertension, essential (Acute) Hypomagnesemia (Acute) Hypophosphatemia (Acute) Obesity (Acute) Obstructive uropathy (Acute) Osteoarthrosis, localized, primary, involving lower leg (Acute) Persistent cough (Acute) Pneumonia (Acute) Renal failure (Acute) Restless leg syndrome (Acute) Sepsis (Acute) Severe sepsis with acute organ dysfunction due to Gram negative bacteria (Acute) Shortness of Breath (Acute) Upper respiratory infection (Acute) Weakness (Acute) Anticoagulant long-term use (Chronic) History of prostate cancer (Chronic) Hyperkalemia (Resolved) - Constitutional Vitals: Vital Signs Temp Pulse Resp BP Pulse Ox 98.8 F 77 10 L 92/77 92 11/23/16 07:30 11/23/16 11:05 11/23/16 11:05 11/23/16 07:30 11/23/16 07:45 Period Temp Pulse Resp BP Sys/Lee Pulse Ox Last 24 Hr 97.6 F-99.6 F 70-95 10-24 92-135/61-77 91-98 Intake and Output 11/22/16 11/23/16 11/23/16 21:59 05:59 13:59 Intake Total 1272 / 1272 150 / 150 1000 / 1000 Output Total 875 / 875 600 / 600 Balance 397 / 397 -450 / -450 1000 / 1000 Weight 195 lb 8 oz 195 lb 8 oz Patient Weight 11/24/16 05:59 Weight 195 lb 8 oz Intake & Output: Intake & Output 11/22/16 11/23/16 11/23/16 21:59 05:59 13:59 Intake Total 1272 / 1272 150 / 150 1000 / 1000 Output Total 875 / 875 600 / 600 Balance 397 / 397 -450 / -450 1000 / 1000 Weight 195 lb 8 oz 195 lb 8 oz Intake: IV 1152 / 1152 100 / 100 1000 / 1000 Sodium Chloride 0.9% 1, 1000 / 1000 1000 / 1000 000 ml @ 100 mls/hr IV . Q10H [facility] Rx#:[id number] Sodium Chloride 0.9% 100 100 / 100 100 / 100 ml @ 100 mls/hr IV Q8H [facility] with Primaxin 500 mg Rx#:[id number] Dextrose 5% in Water 50 52 / 52 ml @ 104 mls/hr IV PRN PRN with Magnesium Sulfate 8.12 Meq Rx#: [id number] Oral 120 / 120 50 / 50 Output: Urine Catheter Amount 875 / 875 600 / 600 Other: Meal Dinner Percent of Meal Consumed 5 Exam: on exam,patient is quite confused, and generally keeps his eyes closed. His family reports that he only occasionally seems to recognize one of them. Neck is supple without obvious lymphadenopathy or JVD. Cardiac exam shows regular rate and rhythm, without obvious murmurs, rubs, gallops. Lungs breath sounds are fairly coarse throughout, without obvious rales or definite rhonchi. There is accessory muscle use. Abdomen is soft and nontender without obvious masses. Extremities: Show no significant edema. There is a red spot on the tip of his great toe, which could be early skin breakdown versus petechial. neurologic exam: The patient appears delirious. He is moving all extremities equally. Medical - PN: Obj Da - Labs CBC & Chem 7: 11/23/16 04:36 11/23/16 04:36 Labs: Abnormal Lab Results 11/23/16 11/23/16 11/23/16 04:36 04:36 04:36 WBC 11.8 H RBC 2.87 L Hgb 8.5 L Hct 26.2 L RDW 14.6 H MPV 7.1 L [place] % (Auto) 10.8 H Gran # 8.2 H [place] # 1.3 H PT 51.6 H INR 5.4 H Creatinine 1.3 H Calcium 7.8 L Phosphorus 1.9 L Total Protein 5.4 L Albumin 2.8 L chest x-ray showed mild cardiomegaly which was stable, as well as mild bibasilar atelectasis. head CT shows moderate atrophy and chronic ischemic changes, with slight progression compared to 3 years ago. There is no hemorrhage. There does appear to be acute sphenoid sinusitis. Meds: Medications Acetaminophen (Tylenol) 650 mg PO Q6HP PRN PRN Reason: PAIN/FEVER > 101 Albuterol/Ipratropium (Duoneb) 3 ml NEB Q4HRT [facility] Bisacodyl (Dulcolax) 10 mg CO Q3DP PRN PRN Reason: Constipation Citalopram Hydrobromide (Celexa) 20 mg PO QDAY [facility] Dextrose (Dextrose 50%) 0 ml IV UD PRN PRN Reason: Hypoglycemia Diagnostic Test (Pha) (Accu-Chek) 1 each FS ACHS [facility] Last Admin: 11/23/16 11:45 Dose: 1 each Docusate Sodium (Colace) 100 mg PO BID [facility] Famotidine (Pepcid) 20 mg IV QHS [facility] Imipenem/Cilastatin Sodium 500 (mg/ Sodium Chloride) 100 mls @ 100 mls/hr IV Q8H [facility] Magnesium Sulfate 8.12 meq/ (Dextrose) 52 mls @ 104 mls/hr IV PRN PRN PRN Reason: Hypomagnesemia, Mg </= to 1.7 Sodium Chloride (Sodium Chloride 0.9%) 1,000 mls @ 100 mls/hr IV .Q10H [facility] Insulin Human Lispro (Humalog) 0 unit SQ ACHS [facility] PRN Reason: Protocol Last Admin: 11/23/16 11:45 Dose: Not Given Megestrol Acetate (Megace) 400 mg PO BID [facility] Metoprolol Tartrate (Lopressor) 12.5 mg PO BID [facility] Trimethoprim Sulfate & Polymyxin B Ophthalmic Solution 0 dose OU QID [facility] Ondansetron HCl (Zofran) 4 mg IV Q4HP PRN PRN Reason: Nausea And Vomiting Potassium Chloride (Kdur) 40 meq PO QAMCC [facility] Simvastatin (Zocor) 20 mg PO HS [facility] Tamsulosin HCl (Flomax) 0.4 mg PO HS [facility] Warfarin Sodium (Coumadin Per Pharmacy) 1 order PO UD [facility] Medical - PN: A/P - Time Spent With Patient Total time spent is greater than 50% in coordination of care (as documented) at patient's floor/unit and/or counseling patient: - Narrative A/P Narrative: #1.infectious disease. this patient presents with clinical decline in the setting of ongoing urinary tract infection. He may have not been clearing his infection because of the grossly purulent for catheter. This has now been changed.recent urine culture grew Enterobacter cloaca A, which is sensitive to Zosyn, Bactrim, meropenem, Levaquin, but resistant to ampicillin Ancef, cefoxitin, nitrofurantoin. -Because of possible acute sinusitis,antibiotics were changed to imipenem for better Pseudomonas coverage.White blood cell count had bumped yesterday, and is a bit improved today. #2. Neurologic. The patient appears to be suffering with a medical delirium. This was discussed at length with numerous family members today. Given his advanced age and overall frail state, the family does not want to be too aggressive, but they would like to continue to give him a chance to clear with IV antibiotics. #3. Hematologic. -Patient has been maintained on warfarin therapy, but this is been on hold due to elevated INR. This continues high today, but without clinical evidence of bleeding. I discussed with him the pros and cons of treating with vitamin K, and at this time have decided to just watch and wait. #4. CODE STATUS: The patient does have a DNR status, but the family is notquite ready to move to comfort care only. #5. DVT prophylaxis: The patient is fully anticoagulated. #6. Renal. Patient appears to have mild chronic kidney disease, which is stable. Phosphorus and calcium are both a bit low, as is albumin. His oral intake is quite poor at this time.i do not think the family would consider parenteral nutrition. #7. Cardiac. Patient has history of chronic atrial fibrillation or paroxysmal A. fib. He remains anticoagulated.heart rates have been controlled. #8. Type 2 diabetes.Accu-Cheks have been controlled. #9. . Patient has history of urinary retention and I believe has a chronic Joseph catheter usually. He continues on Flomax. There is also a previous history of prostate cancer. approximately 35 minutes was spent today, reviewing the patient's records and test results, examining him, and reviewing his course and plan with both staff and with numerous family members, as well as writing orders. Medical - PN: Qual - Stroke Symptom Onset Unknown: No - VTE Deep Vein Thrombosis/Pulmonary Embolism Present on Admission: No
[2016-11-23] MEDS: TAMSULOSIN 0.4 MG CAPSULE PO SCH (20:50)
[2016-11-23] MEDS: FAMOTIDINE/PF 20 MG/2 ML VIAL IV SCH (20:51)
[2016-11-23] MEDS: SIMVASTATIN 20 MG TABLET PO SCH (20:52)
[2016-11-24] MEDS: IPRATROPIUM/ALBUTEROL 3 ML AMPUL.NEB NEB SCH ×6 (03:03→23:21)
[2016-11-24] MEDS: IMIPENEM/CILASTATIN SODIUM 500 MG in 0.9 % SODIUM CHLORIDE 100 ML IV SCH ×3 (05:37→22:17)
[2016-11-24] MEDS: 0.9 % SODIUM CHLORIDE 1,000 ML IV SCH ×3 (05:37→17:52)
[2016-11-24 06:16] LABS: Basophils # (Auto) 0.1 K/mcL (0.0-0.3); Basophils % (Auto) 0.6 % (0.0-2.0); Eosinophils # (Auto) 0.5 K/mcL (0.0-0.7); Eosinophils % (Auto) 4.1 % (0.0-7.0); Granulocytes % (Auto) 67.6 % (38.0-78.0); Lymphocytes % (Auto) 17.3 % (15.5-49.0); Mean Cell Volume 91.7 fL (80.0-100.0); Mean Corpuscular HGB Conc 32.8 g/dL (31.0-36.0); Mean Corpuscular Hemoglobin 30.1 pg (26.0-34.0); Monocytes # (Auto) 1.2 K/mcL (0.1-0.9); Monocytes % (Auto) 10.4 % (1.0-9.0); Platelet Count 311 K/mcL (140-440); RBC 2.86 M/mcL (4.50-5.90); Red Cell Distribution Width 14.6 % (11.5-14.5)
[2016-11-24 06:52] LABS: ALT/SGPT 7 U/l (0-40); Albumin 2.8 gm/dL (3.2-5.2); Albumin/Globulin Ratio 0.9 (1.0-2.3); Alkaline Phosphatase 61 U/L (39-117); Bilirubin,Direct < 0.2 mg/dL (0.0-0.3); Blood Urea Nitrogen 15 mg/dl (8-23); Gamma Glutamyl Transpeptidase 33 U/L (8-61); Magnesium 1.8 mg/dL (1.6-2.5); Phosphorous 1.5 mg/dL (2.7-4.5); Uric Acid 6.3 mg/dL (2.5-8.0)
[2016-11-24] MEDS: INSULIN LISPRO 1 UNIT/0.01 ML UNIT SQ SCH ×4 (08:51→20:39)
[2016-11-24] MEDS: DOCUSATE SODIUM 100 MG CAPSULE PO SCH ×2 (09:14→20:35)
[2016-11-24] MEDS: METOPROLOL TARTRATE 25 MG TABLET PO SCH ×2 (09:25→20:35)
[2016-11-24] MEDS: POTASSIUM CHLORIDE 20 MEQ TABLET PO SCH (09:26)
[2016-11-24] MEDS: CITALOPRAM 20 MG TABLET PO SCH (09:27)
[2016-11-24] MEDS: MEGESTROL ACETATE 400 MG/10 ML ORAL.SUSP PO SCH ×2 (09:29→20:36)
[2016-11-24] MEDS: [UNRECOGNIZED DRUG - OTHER] OU SCH ×5 (09:38→20:45)
[2016-11-24] MEDS: POLYMYXIN B OU SCH ×5 (09:38→20:45)
--- NOTE | 2016-11-24 11:13 | Internal Med Progress Note ---
Medical - PN: Subj Patient information: Note initiated : 11/24/16 at 11:13 am Service Date, if different from initiated Date: [] Patient: Shekhar De La Cruz a 89 y/o M admitted on 11/22/16 for High INR, Malaise/ Dehydration, Failure to Thrive. Chief Complaint: [] Interval history: History of present illness: 11/21/16: Mr. De La Cruz is a 89 year old male with recently discharged from the hospital (11/18/16) for septic shock secondary to enterobacter uti. and on Ivanz for same at [place], presented to the ER for elevated INR and weakness, decreased mentation and decine in po intake. Patient was worked up in the ER and no acute source of infection noted. CT head showed sphenoid sinusitis, u/a was positive for infection, cultures sent. wbc was not elevated on presentation. CXR reported negative. CT head neg for acute intracranial process. Pt also dehydrated due to decreased po intake. 11/22 Patient seen examined, patient had no acute overnight events, hard of hearing and denies any complaints, is pleasanltly confused and has waxing and waning mentation, which is better than yesterday. He is able to tolerate PO diet, and Diet to be resumed as per ST recommendations. His wbc count is up today, etiology uncertain. Given his sinusitis, and h/o DM, will change invanz to imipenum (adjust for renal function) this should cover for the enterobacter and possible pseudomonas is present in the sinus. Will change joseph today. Family at bedside updated on patients condition. 11/23/16: the nurses tell me they changed his Joseph catheter yesterday, and it was grossly purulent. although vital signs been fairly stable overnight, the family notes the patient seems more confused, and at times agitated, today. They also note, however, that he is moving his arms and legs a lot more, and previously had seemed too weak to do much moving. the patient is clearly confused, and really cannot answer any questions or do much in the way of following commands today. He does occasionally try to sit up , and an apparent attempt to get out of bed. The family reports that up until a couple of weeks ago he was very sharp mentally. He does not have known dementia. 11/24/16:Today, the patient remains quite confused, however he does seem more awake. He actually was able to follow some commands that were given by the speech therapist today. However, he remains extremely dirty, and his family notes that he only intermittently seems to recognize them. He is unable to participate in review of systems.his speech is mostly unintelligible. - Constitutional Vitals: Vital Signs Temp Pulse Resp BP Pulse Ox 98.0 F 72 21 154/87 92 11/24/16 06:27 11/24/16 07:48 11/24/16 07:48 11/24/16 06:27 11/24/16 07:48 Period Temp Pulse Resp BP Sys/Lee Pulse Ox Last 24 Hr 97.9 F-99.9 F 72-81 14-24 114-154/55-87 91-97 Intake and Output 11/23/16 11/24/16 11/24/16 21:59 05:59 13:59 Intake Total 783 / 783 1100 / 1100 Output Total 650 / 650 650 / 650 Balance 133 / 133 450 / 450 Weight 197 lb Intake & Output: Intake & Output 11/23/16 11/24/16 11/24/16 21:59 05:59 13:59 Intake Total 783 / 783 1100 / 1100 Output Total 650 / 650 650 / 650 Balance 133 / 133 450 / 450 Weight 197 lb Intake: IV 783 / 783 1100 / 1100 Sodium Chloride 0.9% 1, 683 / 683 1000 / 1000 000 ml @ 100 mls/hr IV . Q10H [facility] Rx#:[id number] Sodium Chloride 0.9% 100 100 / 100 100 / 100 ml @ 100 mls/hr IV Q8H [facility] with Primaxin 500 mg Rx#:[id number] Output: Urine Catheter Amount 650 / 650 650 / 650 Exam: n exam,this is an elderly man with depressed mental status. He is awake, butoften keeps his eyes closed and is unable to speak in an intelligible manner. He is however, able to follow some commands, such as deep breathing on command. Neck is supple without obvious lymphadenopathy or JVD. Cardiac exam shows regular rate and rhythm. Lungs:Are essentially clear to auscultation. Abdomen appears soft and nontender without obvious masses. Bowel sounds are active. Extremities show no significant edema. The red spot on his great toe appears to be developing into a blister. Neurologic: The patient continues fairly obtunded but seems to move all extremities equally. Medical - PN: Obj Da - Labs CBC & Chem 7: 11/24/16 05:21 11/24/16 05:21 Labs: Abnormal Lab Results 11/24/16 11/24/16 11/24/16 05:21 05:21 05:21 WBC 11.4 H RBC 2.86 L Hgb 8.6 L Hct 26.2 L RDW 14.6 H MPV 7.1 L Butts % (Auto) 10.4 H Gran # Butts # 1.2 H PT 51.9 H INR 5.4 H Creatinine Calcium 8.1 L Phosphorus 1.5 L Total Protein 5.8 L Albumin 2.8 L Albumin/Globulin Ratio 0.9 L 11/23/16 11/23/16 11/23/16 04:36 04:36 04:36 WBC 11.8 H RBC 2.87 L Hgb 8.5 L Hct 26.2 L RDW 14.6 H MPV 7.1 L Butts % (Auto) 10.8 H Gran # 8.2 H Butts # 1.3 H PT 51.6 H INR 5.4 H Creatinine 1.3 H Calcium 7.8 L Phosphorus 1.9 L Total Protein 5.4 L Albumin 2.8 L Albumin/Globulin Ratio chest x-ray from November 21: showed mild cardiomegaly which was stable, as well as mild bibasilar atelectasis. head CT shows moderate atrophy and chronic ischemic changes, with slight progression compared to 3 years ago. There is no hemorrhage. There does appear to be acute sphenoid sinusitis. Nasal MRSA screen was negative. Urine culture and blood cultures from November 21, 2016: have been negative. Urine and blood cultures from November 14, 2016: Grew Enterobacter cloaca. Meds: Medications Acetaminophen (Tylenol) 650 mg PO Q6HP PRN PRN Reason: PAIN/FEVER > 101 Albuterol/Ipratropium (Duoneb) 3 ml NEB Q4HRT [facility] Last Admin: 11/24/16 07:49 Dose: 3 ml Bisacodyl (Dulcolax) 10 mg [place] Q3DP PRN PRN Reason: Constipation Citalopram Hydrobromide (Celexa) 20 mg PO QDAY [facility] Last Admin: 11/24/16 09:27 Dose: 20 mg Dextrose (Dextrose 50%) 0 ml IV UD PRN PRN Reason: Hypoglycemia Diagnostic Test (Pha) (Accu-Chek) 1 each FS ACHS [facility] Last Admin: 11/24/16 08:51 Dose: 1 each Docusate Sodium (Colace) 100 mg PO BID [facility] Last Admin: 11/24/16 09:14 Dose: Not Given Famotidine (Pepcid) 20 mg IV QHS [facility] Last Admin: 11/23/16 20:51 Dose: 20 mg Imipenem/Cilastatin Sodium 500 (mg/ Sodium Chloride) 100 mls @ 100 mls/hr IV Q8H [facility] Last Admin: 11/24/16 05:37 Dose: 100 mls/hr Magnesium Sulfate 8.12 meq/ (Dextrose) 52 mls @ 104 mls/hr IV PRN PRN PRN Reason: Hypomagnesemia, Mg </= to 1.7 Sodium Chloride (Sodium Chloride 0.9%) 1,000 mls @ 100 mls/hr IV .Q10H [facility] Last Admin: 11/24/16 09:03 Dose: Not Given Insulin Human Lispro (Humalog) 0 unit SQ [facility] PRN Reason: Protocol Last Admin: 11/24/16 08:51 Dose: Not Given Megestrol Acetate (Megace) 400 mg PO BID [facility] Last Admin: 11/24/16 09:29 Dose: 400 mg Metoprolol Tartrate (Lopressor) 12.5 mg PO BID [facility] Last Admin: 11/24/16 09:25 Dose: 12.5 mg Trimethoprim Sulfate & Polymyxin B Ophthalmic Solution 0 dose OU QID [facility] Last Admin: 11/24/16 09:38 Dose: 1 dose Ondansetron HCl (Zofran) 4 mg IV Q4HP PRN PRN Reason: Nausea And Vomiting Potassium Chloride (Kdur) 40 meq PO QAMCC [facility] Last Admin: 11/24/16 09:26 Dose: 40 meq Simvastatin (Zocor) 20 mg PO [facility] Last Admin: 11/23/16 20:52 Dose: 20 mg Tamsulosin HCl (Flomax) 0.4 mg PO [facility] Last Admin: 11/23/16 20:50 Dose: 0.4 mg Warfarin Sodium (Coumadin Per Pharmacy) 1 [place] PO [facility] [place] - PN: A/P - Time Spent With Patient Total time spent is greater than 50% in coordination of care (as documented) at patient's floor/unit and/or counseling patient: - Narrative A/P Narrative: #1.infectious disease. this patient presents with clinical decline in the setting of ongoing urinary tract infection. He may have not been clearing his infection because of the grossly purulent for catheter. This has now been changed.recent urine culture grew Enterobacter cloaca A, which is sensitive to Zosyn, Bactrim, meropenem, Levaquin, but resistant to ampicillin Ancef, cefoxitin, nitrofurantoin. -Because of possible acute sinusitis,antibiotics were changed to imipenem for better Pseudomonas coverage.White blood cell count had bumped yesterday, and is again a bit improved today. however, he did have a low-grade fever this afternoon. if he is not showing definite improvement by tomorrow, may add vancomycin to cover the remote possibility of MRSA. #2. Neurologic. The patient appears to be suffering with a medical delirium. This was discussed at length with numerous family members . Given his advanced age and overall frail state, the family does not want to be too aggressive, but they would like to continue to give him a chance to clear with IV antibiotics. -he does seem to be a little bit clearer today than yesterday, sohis family and I have agreed to continue with current therapy to give him the best chance of improvement. #3. Hematologic. -Patient has been maintained on warfarin therapy, but this is been on hold due to elevated INR. This continues high today, but without clinical evidence of bleeding. I discussed with him the pros and cons of treating with vitamin K, and at this time have decided to just watch and wait. #4. CODE STATUS: The patient does have a DNR status, but the family is not quite ready to move to comfort care only. #5. DVT prophylaxis: The patient is fully anticoagulated. #6. Renal. Patient appears to have mild chronic kidney disease, which is stable. Phosphorus and calcium are both a bit low, as is albumin. His oral intake is quite poor at this time.i do not think the family would consider parenteral nutrition. #7. Cardiac. Patient has history of chronic atrial fibrillation or paroxysmal A. fib. He remains anticoagulated.heart rates have been controlled. #8. Type 2 diabetes.Accu-Cheks have been controlled. #9. . Patient has history of urinary retention and I believe has a chronic Joseph catheter usually. He continues on Flomax. There is also a previous history of prostate cancer. #10. Nutrition. Speech therapy worked with him again today, but because it is generalized somnolence, he remains high risk for aspiration. We have decided to make him nothing by mouth except for occasional ice chips. continue IV fluids for hydration. I don't believe he is a candidate for parenteral nutrition. approximately 30 minutes was spent today, reviewing the patient's records and test results, examining him, and reviewing his course and plan with both staff and with numerous family members, as well as writing orders. Medical - PN: Qual - Stroke Symptom Onset Unknown: No - VTE Deep Vein Thrombosis/Pulmonary Embolism Present on Admission: No
[2016-11-24] MEDS: TAMSULOSIN 0.4 MG CAPSULE PO SCH (20:35)
[2016-11-24] MEDS: SIMVASTATIN 20 MG TABLET PO SCH (20:36)
[2016-11-24] MEDS: FAMOTIDINE/PF 20 MG/2 ML VIAL IV SCH (20:45)
[2016-11-25] MEDS: IPRATROPIUM/ALBUTEROL 3 ML AMPUL.NEB NEB SCH ×6 (02:33→23:12)
[2016-11-25] MEDS: 0.9 % SODIUM CHLORIDE 1,000 ML IV SCH ×2 (04:37→16:39)
[2016-11-25] MEDS: IMIPENEM/CILASTATIN SODIUM 500 MG in 0.9 % SODIUM CHLORIDE 100 ML IV SCH ×4 (05:14→21:40)
[2016-11-25 06:43] LABS: Basophils # (Auto) 0.1 K/mcL (0.0-0.3); Basophils % (Auto) 0.6 % (0.0-2.0); Eosinophils # (Auto) 0.3 K/mcL (0.0-0.7); Eosinophils % (Auto) 2.6 % (0.0-7.0); Lymphocytes # (Auto) 1.5 K/mcL (1.5-4.8); Lymphocytes % (Auto) 11.4 % (15.5-49.0); Mean Cell Volume 92.6 fL (80.0-100.0); Mean Corpuscular HGB Conc 32.3 g/dL (31.0-36.0); Mean Corpuscular Hemoglobin 29.9 pg (26.0-34.0); Monocytes # (Auto) 1.1 K/mcL (0.1-0.9); Monocytes % (Auto) 8.4 % (1.0-9.0); Platelet Count 316 K/mcL (140-440); RBC 3.04 M/mcL (4.50-5.90); Red Cell Distribution Width 14.9 % (11.5-14.5)
[2016-11-25] MEDS: POTASSIUM CHLORIDE 20 MEQ TABLET PO SCH (07:28)
[2016-11-25] MEDS: CITALOPRAM 20 MG TABLET PO SCH (07:28)
[2016-11-25 07:29] LABS: ALT/SGPT 8 U/l (0-40); Albumin 2.8 gm/dL (3.2-5.2); Albumin/Globulin Ratio 0.8 (1.0-2.3); Alkaline Phosphatase 69 U/L (39-117); Bilirubin,Direct < 0.2 mg/dL (0.0-0.3); Blood Urea Nitrogen 14 mg/dl (8-23); Gamma Glutamyl Transpeptidase 34 U/L (8-61); Magnesium 1.8 mg/dL (1.6-2.5); Phosphorous 1.9 mg/dL (2.7-4.5); Uric Acid 6.2 mg/dL (2.5-8.0)
[2016-11-25] MEDS: DOCUSATE SODIUM 100 MG CAPSULE PO SCH ×2 (07:29→21:31)
[2016-11-25] MEDS: MEGESTROL ACETATE 400 MG/10 ML ORAL.SUSP PO SCH ×2 (07:29→21:32)
[2016-11-25] MEDS: METOPROLOL TARTRATE 25 MG TABLET PO SCH ×2 (07:29→21:32)
[2016-11-25] MEDS: INSULIN LISPRO 1 UNIT/0.01 ML UNIT SQ SCH ×4 (07:43→21:32)
[2016-11-25] MEDS ORDERED: PHYTONADIONE 10 MG/ML AMPUL SQ ONE (08:13)
[2016-11-25] MEDS ORDERED: VANCOMYCIN PER PHARMACY IV ONE (08:47)
--- NOTE | 2016-11-25 09:43 | XRay Report ---
CLINICAL INFORMATION: Fever COMPARISON: 11/21/2016 FINDINGS: The heart is moderately enlarged but unchanged. Mediastinum and pulmonary vessels are normal. PICC line tip overlies the SVC. Minor bibasilar atelectasis noted. IMPRESSION: 1. Moderate cardiomegaly - stable 2. Mild bibasilar atelectasis Interpreted and Authenticated by: Owen Bowles 11/25/16
[2016-11-25] MEDS: POLYMYXIN B OU SCH ×4 (11:03→21:30)
[2016-11-25] MEDS: VANCOMYCIN 1,500 MG in 0.9 % SODIUM CHLORIDE 500 ML IV SCH (11:03)
[2016-11-25] MEDS: [UNRECOGNIZED DRUG - OTHER] OU SCH ×4 (11:03→21:30)
[2016-11-25 11:05] LABS: Appearance,Urine CLEAR; Bacteria,Urine 0 /hpf (0); Bilirubin,Urine NEG (NEG); Color,Urine YELLOW; Glucose,Urine (UA) 50 mg/dL (NEG); Leukocyte Esterase,Urine NEG /uL (NEG); Mucus,Urine FEW /hpf (0); Nitrate,Urine NEG (NEG); Protein,Urine 30 mg/dL (NEG); Specific Gravity,Urine 1.013 (1.000-1.035); Urine Blood 0.2 mg/dL (<0.03); Urine Hyaline Cast 3 /lpf (0-2); Urine RBC 36 /hpf (0-1); Urine Squamous Epithelial Cell 0 /hpf (0-4); Urine WBC 9 /hpf (0-4); Urobilinogen,Urine NEG (NEG)
[2016-11-25] MEDS: DEXTROSE 50% 50 ML VIAL IV PRN (11:44)
--- NOTE | 2016-11-25 13:31 | Internal Med Progress Note ---
Medical - PN: Subj Patient information: Note initiated : 11/25/16 at 1:31 pm Service Date, if different from initiated Date: [] Patient: Shekhar De La Cruz a 89 y/o M admitted on 11/22/16 for High INR, Malaise/ Dehydration, Failure to Thrive. Chief Complaint: [] Interval history: History of present illness: 11/21/16: Mr. De La Cruz is a 89 year old male with recently discharged from the hospital (11/18/16) for septic shock secondary to enterobacter uti. and on Ivanz for same at [place], presented to the ER for elevated INR and weakness, decreased mentation and decine in po intake. Patient was worked up in the ER and no acute source of infection noted. CT head showed sphenoid sinusitis, u/a was positive for infection, cultures sent. wbc was not elevated on presentation. CXR reported negative. CT head neg for acute intracranial process. Pt also dehydrated due to decreased po intake. 11/22 Patient seen examined, patient had no acute overnight events, hard of hearing and denies any complaints, is pleasanltly confused and has waxing and waning mentation, which is better than yesterday. He is able to tolerate PO diet, and Diet to be resumed as per ST recommendations. His wbc count is up today, etiology uncertain. Given his sinusitis, and h/o DM, will change invanz to imipenum (adjust for renal function) this should cover for the enterobacter and possible pseudomonas is present in the sinus. Will change joseph today. Family at bedside updated on patients condition. 11/23/16: the nurses tell me they changed his Joseph catheter yesterday, and it was grossly purulent. although vital signs been fairly stable overnight, the family notes the patient seems more confused, and at times agitated, today. They also note, however, that he is moving his arms and legs a lot more, and previously had seemed too weak to do much moving. the patient is clearly confused, and really cannot answer any questions or do much in the way of following commands today. He does occasionally try to sit up , and an apparent attempt to get out of bed. The family reports that up until a couple of weeks ago he was very sharp mentally. He does not have known dementia. 11/24/16:Today, the patient remains quite confused, however he does seem more awake. He actually was able to follow some commands that were given by the speech therapist today. However, he remains extremely drifty, and his family notes that he only intermittently seems to recognize them. He is unable to participate in review of systems.his speech is mostly unintelligible. 11/25/16: today, the patient remains fairly obtunded, however he is still able to open his eyes briefly on command, and does follow commands to do simple things, such as deep breathe.he had a fairly uneventful night. He is not able to participate in review of systems. - Constitutional Vitals: Vital Signs Temp Pulse Resp BP Pulse Ox 98.7 F 92 H 20 135/76 93 11/25/16 12:00 11/25/16 12:00 11/25/16 12:00 11/25/16 12:00 11/25/16 12:00 Period Temp Pulse Resp BP Sys/Lee Pulse Ox Last 24 Hr 98.3 F-100.3 F 67-92 20-22 123-137/68-77 91-97 Intake and Output 11/24/16 11/25/16 11/25/16 21:59 05:59 13:59 Intake Total 1100 / 1100 1100 / 1100 Output Total 800 / 800 900 / 900 Balance 300 / 300 200 / 200 Weight 193 lb Intake & Output: Intake & Output 11/24/16 11/25/16 11/25/16 21:59 05:59 13:59 Intake Total 1100 / 1100 1100 / 1100 Output Total 800 / 800 900 / 900 Balance 300 / 300 200 / 200 Weight 193 lb Intake: IV 1100 / 1100 1100 / 1100 Sodium Chloride 0.9% 1, 1000 / 1000 1000 / 1000 000 ml @ 100 mls/hr IV . Q10H [facility] Rx#:[id number] Sodium Chloride 0.9% 100 100 / 100 100 / 100 ml @ 100 mls/hr IV Q8H [facility] with Primaxin 500 mg Rx#:[id number] Oral 0 / 0 Output: Urine Catheter Amount 800 / 800 900 / 900 Exam: On exam,this is an elderly man with depressed mental status. He keeps his eyes closed and is unable to speak in an intelligible manner. He is however, able to follow some commands, such as deep breathing on command. Neck is supple without obvious lymphadenopathy or JVD. Cardiac exam shows regular rate and rhythm. Lungs:Are essentially clear to auscultation. Abdomen appears soft and nontender without obvious masses. Bowel sounds are active. Extremities show no significant edema. Neurologic: The patient continues fairly obtunded but seems to move all extremities equally. Medical - PN: Obj Da - Labs CBC & Chem 7: 11/25/16 05:20 11/25/16 05:20 Labs: Abnormal Lab Results 11/25/16 11/25/16 11/25/16 10:31 05:20 05:20 WBC RBC Hgb Hct RDW MPV Lymph % (Auto) Lasalle % (Auto) Gran # Lasalle # PT 62.8 H INR 6.9 H* Carbon Dioxide 21 L Creatinine Glucose 61 L Calcium 8.1 L Phosphorus 1.9 L Lactate Dehydrogenase 288 H Total Protein Albumin 2.8 L Albumin/Globulin Ratio 0.8 L Urine Protein 30 A Urine Glucose (UA) 50 A Urine Ketones 20 A Urine Occult Blood 0.2 A Urine RBC 36 H Urine WBC 9 H Hyaline Casts 3 H 11/25/16 11/24/16 11/24/16 05:20 05:21 05:21 WBC 13.4 H RBC 3.04 L Hgb 9.1 L Hct 28.2 L RDW 14.9 H MPV 7.3 L Lymph % (Auto) 11.4 L Lasalle % (Auto) Gran # 10.3 H Lasalle # 1.1 H PT 51.9 H INR 5.4 H Carbon Dioxide Creatinine Glucose Calcium 8.1 L Phosphorus 1.5 L Lactate Dehydrogenase Total Protein 5.8 L Albumin 2.8 L Albumin/Globulin Ratio 0.9 L Urine Protein Urine Glucose (UA) Urine Ketones Urine Occult Blood Urine RBC Urine WBC Hyaline Casts 11/24/16 11/23/16 11/23/16 05:21 04:36 04:36 WBC 11.4 H RBC 2.86 L Hgb 8.6 L Hct 26.2 L RDW 14.6 H MPV 7.1 L Lymph % (Auto) Lasalle % (Auto) 10.4 H Gran # Lasalle # 1.2 H PT 51.6 H INR 5.4 H Carbon Dioxide Creatinine 1.3 H Glucose Calcium 7.8 L Phosphorus 1.9 L Lactate Dehydrogenase Total Protein 5.4 L Albumin 2.8 L Albumin/Globulin Ratio Urine Protein Urine Glucose (UA) Urine Ketones Urine Occult Blood Urine RBC Urine WBC Hyaline Casts 11/23/16 04:36 WBC 11.8 H RBC 2.87 L Hgb 8.5 L Hct 26.2 L RDW 14.6 H MPV 7.1 L Lymph % (Auto) Lasalle % (Auto) 10.8 H Gran # 8.2 H Lasalle # 1.3 H PT INR Carbon Dioxide Creatinine Glucose Calcium Phosphorus Lactate Dehydrogenase Total Protein Albumin Albumin/Globulin Ratio Urine Protein Urine Glucose (UA) Urine Ketones Urine Occult Blood Urine RBC Urine WBC Hyaline Casts urine is negative for nitrites and leukocyte esterase. chest x-ray shows moderate cardiomegaly with minor bibasilar atelectasis noted chest x-ray from November 21: showed mild cardiomegaly which was stable, as well as mild bibasilar atelectasis. head CT shows moderate atrophy and chronic ischemic changes, with slight progression compared to 3 years ago. There is no hemorrhage. There does appear to be acute sphenoid sinusitis. Nasal MRSA screen was negative. Urine culture and blood cultures from November 21, 2016: have been negative. Urine and blood cultures from November 14, 2016: Grew Enterobacter cloaca. Meds: Medications Acetaminophen (Tylenol) 650 mg PO Q6HP PRN PRN Reason: PAIN/FEVER > 101 Albuterol/Ipratropium (Duoneb) 3 ml NEB Q4HRT [facility] Last Admin: 11/25/16 11:23 Dose: 3 ml Bisacodyl (Dulcolax) 10 mg [place] Q3DP PRN PRN Reason: Constipation Citalopram Hydrobromide (Celexa) 20 mg PO QDAY [facility] Last Admin: 11/25/16 07:28 Dose: Not Given Dextrose (Dextrose 50%) 0 ml IV UD PRN PRN Reason: Hypoglycemia Last Admin: 11/25/16 11:44 Dose: 25 ml Diagnostic Test (Pha) (Accu-Chek) 1 each FS ACHS [facility] Last Admin: 11/25/16 11:43 Dose: 1 each Docusate Sodium (Colace) 100 mg PO BID [facility] Last Admin: 11/25/16 07:29 Dose: Not Given Famotidine (Pepcid) 20 mg IV QHS [facility] Last Admin: 11/24/16 20:45 Dose: 20 mg Imipenem/Cilastatin Sodium 500 (mg/ Sodium Chloride) 100 mls @ 100 mls/hr IV Q8H [facility] Last Admin: 11/25/16 05:14 Dose: 100 mls/hr Magnesium Sulfate 8.12 meq/ (Dextrose) 52 mls @ 104 mls/hr IV PRN PRN PRN Reason: Hypomagnesemia, Mg </= to 1.7 Sodium Chloride (Sodium Chloride 0.9%) 1,000 mls @ 100 mls/hr IV .Q10H [facility] Last Admin: 11/25/16 04:37 Dose: 100 mls/hr Vancomycin HCl 1,500 mg/ (Sodium Chloride) 500 mls @ 333.3 mls/hr IV Q24H [facility] Last Admin: 11/25/16 11:03 Dose: 333.3 mls/hr Insulin Human Lispro (Humalog) 0 unit SQ ACHS [facility] PRN Reason: Protocol Last Admin: 11/25/16 11:45 Dose: Not Given Megestrol Acetate (Megace) 400 mg PO BID [facility] Last Admin: 11/25/16 07:29 Dose: Not Given Metoprolol Tartrate (Lopressor) 12.5 mg PO BID [facility] Last Admin: 11/25/16 07:29 Dose: Not Given Trimethoprim Sulfate & Polymyxin B Ophthalmic Solution 0 dose OU QID [facility] Last Admin: 11/25/16 11:03 Dose: 1 dose Ondansetron HCl (Zofran) 4 mg IV Q4HP PRN PRN Reason: Nausea And Vomiting Potassium Chloride (Kdur) 40 meq PO QAC [facility] Last Admin: 11/25/16 07:28 Dose: Not Given Simvastatin (Zocor) 20 mg PO [facility] Last Admin: 11/24/16 20:36 Dose: Not Given Tamsulosin HCl (Flomax) 0.4 mg PO [facility] Last Admin: 11/24/16 20:35 Dose: Not Given Warfarin Sodium (Coumadin Per Pharmacy) 1 order PO [facility] [place] Medical - PN: A/P - Time Spent With Patient Total time spent is greater than 50% in coordination of care (as documented) at patient's floor/unit and/or counseling patient: - Narrative A/P Narrative: #1.infectious disease. this patient presents with clinical decline in the setting of ongoing urinary tract infection. He may have not been clearing his infection because of the grossly purulent for catheter. This has now been changed.recent urine culture grew Enterobacter cloaca A, which is sensitive to Zosyn, Bactrim, meropenem, Levaquin, but resistant to ampicillin Ancef, cefoxitin, nitrofurantoin. -Because of possible acute sinusitis,antibiotics were changed to imipenem for better Pseudomonas coverage.White blood cell count bumped again today, and he did have a low-grade fever.source is not clear. -I have added vancomycin to be sure he is covered for hospital-acquired staph infection. urinalysis does not suggest UTI, and chest x-ray does not suggest new pneumonia #2. Neurologic. The patient appears to be suffering with a medical delirium. This was discussed at length with numerous family members . Given his advanced age and overall frail state, the family does not want to be too aggressive, but they would like to continue to give him a chance to clear with IV antibiotics. -he does seem to be a little bit clearer , so his family and I have agreed to continue with current therapy to give him the best chance of improvement. #3. Hematologic. -Patient has been maintained on warfarin therapy, but this is been on hold due to elevated INR. INR was even higher today, so I did give him a dose of vitamin K. #4. CODE STATUS: The patient does have a DNR status, but the family is not quite ready to move to comfort care only. #5. DVT prophylaxis: The patient is fully anticoagulated. #6. Renal. Patient appears to have mild chronic kidney disease, which is stable. Phosphorus and calcium are both a bit low, as is albumin. His oral intake is quite poor at this time.i do not think the family would consider parenteral nutrition. #7. Cardiac. Patient has history of chronic atrial fibrillation or paroxysmal A. fib. He remains anticoagulated.heart rates have been controlled. #8. Type 2 diabetes.Accu-Cheks have been controlled. glucose was a bit low this morning at 66 . he really has no oral intake. He continues on sliding scale insulin coverage but his oral hypoglycemics are on hold. #9. . Patient has history of urinary retention and I believe has a chronic Joseph catheter usually. He continues on Flomax. There is also a previous history of prostate cancer. #10. Nutrition. Speech therapy worked with him , but because it is generalized somnolence, he remains high risk for aspiration. We have decided to make him nothing by mouth except for occasional ice chips. continue IV fluids for hydration. I don't believe he is a candidate for parenteral nutrition. approximately 30 minutes was spent today, reviewing the patient's records and test results, examining him, and reviewing his course and plan with both staff and with numerous family members, as well as writing orders. Medical - PN: Qual - Stroke Symptom Onset Unknown: No - VTE Deep Vein Thrombosis/Pulmonary Embolism Present on Admission: No
[2016-11-25] MEDS: FAMOTIDINE/PF 20 MG/2 ML VIAL IV SCH (21:30)
[2016-11-25] MEDS: TAMSULOSIN 0.4 MG CAPSULE PO SCH (21:31)
[2016-11-25] MEDS: SIMVASTATIN 20 MG TABLET PO SCH (21:32)
[2016-11-26] MEDS ORDERED: 0.9 % SODIUM CHLORIDE 10 ML SYRINGE IV PRN (01:17)
[2016-11-26] MEDS: IPRATROPIUM/ALBUTEROL 3 ML AMPUL.NEB NEB SCH ×6 (03:37→23:09)
[2016-11-26] MEDS: 0.9 % SODIUM CHLORIDE 1,000 ML IV SCH ×4 (04:17→10:42)
[2016-11-26] MEDS: IMIPENEM/CILASTATIN SODIUM 500 MG in 0.9 % SODIUM CHLORIDE 100 ML IV SCH ×3 (05:06→21:35)
[2016-11-26 06:07] LABS: Basophils # (Auto) 0.1 K/mcL (0.0-0.3); Basophils % (Auto) 0.4 % (0.0-2.0); Eosinophils # (Auto) 0.4 K/mcL (0.0-0.7); Eosinophils % (Auto) 3.1 % (0.0-7.0); Granulocytes % (Auto) 76.1 % (38.0-78.0); Lymphocytes # (Auto) 1.9 K/mcL (1.5-4.8); Mean Cell Volume 92.1 fL (80.0-100.0); Mean Corpuscular HGB Conc 31.9 g/dL (31.0-36.0); Mean Corpuscular Hemoglobin 29.4 pg (26.0-34.0); Monocytes # (Auto) 1.1 K/mcL (0.1-0.9); Monocytes % (Auto) 7.4 % (1.0-9.0); Platelet Count 300 K/mcL (140-440); RBC 2.99 M/mcL (4.50-5.90); Red Cell Distribution Width 14.9 % (11.5-14.5)
[2016-11-26 06:28] LABS: ALT/SGPT 7 U/l (0-40); Albumin 2.7 gm/dL (3.2-5.2); Albumin/Globulin Ratio 0.8 (1.0-2.3); Alkaline Phosphatase 58 U/L (39-117); Bilirubin,Direct < 0.2 mg/dL (0.0-0.3); Blood Urea Nitrogen 11 mg/dl (8-23); Gamma Glutamyl Transpeptidase 28 U/L (8-61); Magnesium 1.7 mg/dL (1.6-2.5); Phosphorous 1.7 mg/dL (2.7-4.5); Uric Acid 6.3 mg/dL (2.5-8.0)
[2016-11-26] MEDS: DEXTROSE 50% 50 ML VIAL IV PRN (07:05)
[2016-11-26] MEDS: INSULIN LISPRO 1 UNIT/0.01 ML UNIT SQ SCH ×4 (07:05→20:51)
[2016-11-26] MEDS: METOPROLOL TARTRATE 25 MG TABLET PO SCH ×2 (07:06→20:51)
[2016-11-26] MEDS: CITALOPRAM 20 MG TABLET PO SCH (07:06)
[2016-11-26] MEDS: DOCUSATE SODIUM 100 MG CAPSULE PO SCH ×2 (07:06→20:51)
[2016-11-26] MEDS: POTASSIUM CHLORIDE 20 MEQ TABLET PO SCH (07:06)
[2016-11-26] MEDS: MEGESTROL ACETATE 400 MG/10 ML ORAL.SUSP PO SCH ×2 (07:06→20:51)
[2016-11-26] MEDS: MAGNESIUM SULFATE 8.12 MEQ in DEXTROSE 5% IN WATER 50 ML IV PRN (08:16)
[2016-11-26] MEDS: VANCOMYCIN 1,500 MG in 0.9 % SODIUM CHLORIDE 500 ML IV SCH (10:41)
[2016-11-26] MEDS: POLYMYXIN B OU SCH ×4 (10:42→20:50)
[2016-11-26] MEDS: [UNRECOGNIZED DRUG - OTHER] OU SCH ×4 (10:42→20:50)
[2016-11-26] MEDS ORDERED: WARFARIN 5 MG TABLET PO ONE (14:00)
--- NOTE | 2016-11-26 14:03 | Internal Med Progress Note ---
Medical - PN: Subj Patient information: Note initiated : 11/26/16 at 2:02 pm Service Date, if different from initiated Date: [] Patient: Shekhar De La Cruz a 89 y/o M admitted on 11/22/16 for High INR, Malaise/ Dehydration, Failure to Thrive. Chief Complaint: [] Interval history: History of present illness: 11/21/16: Mr. De La Cruz is a 89 year old male with recently discharged from the hospital (11/18/16) for septic shock secondary to enterobacter uti. and on [place] for same at [place], presented to the ER for elevated INR and weakness, decreased mentation and decine in po intake. Patient was worked up in the ER and no acute source of infection noted. CT head showed sphenoid sinusitis, u/a was positive for infection, cultures sent. wbc was not elevated on presentation. CXR reported negative. CT head neg for acute intracranial process. Pt also dehydrated due to decreased po intake. 11/22 Patient seen examined, patient had no acute overnight events, hard of hearing and denies any complaints, is pleasanltly confused and has waxing and waning mentation, which is better than yesterday. He is able to tolerate PO diet, and Diet to be resumed as per ST recommendations. His wbc count is up today, etiology uncertain. Given his sinusitis, and h/o DM, will change invanz to imipenum (adjust for renal function) this should cover for the enterobacter and possible pseudomonas is present in the sinus. Will change joseph today. Family at bedside updated on patients condition. 11/23/16: the nurses tell me they changed his Joseph catheter yesterday, and it was grossly purulent. although vital signs been fairly stable overnight, the family notes the patient seems more confused, and at times agitated, today. They also note, however, that he is moving his arms and legs a lot more, and previously had seemed too weak to do much moving. the patient is clearly confused, and really cannot answer any questions or do much in the way of following commands today. He does occasionally try to sit up , and an apparent attempt to get out of bed. The family reports that up until a couple of weeks ago he was very sharp mentally. He does not have known dementia. 11/24/16:Today, the patient remains quite confused, however he does seem more awake. He actually was able to follow some commands that were given by the speech therapist today. However, he remains extremely drifty, and his family notes that he only intermittently seems to recognize them. He is unable to participate in review of systems.his speech is mostly unintelligible. 11/25/16: today, the patient remains fairly obtunded, however he is still able to open his eyes briefly on command, and does follow commands to do simple things, such as deep breathe.he had a fairly uneventful night. He is not able to participate in review of systems. 11/26/16: today, the patient does appear a little more awake and alert, but his speech is still unintelligible. He is once again, however, able to follow some commands such as deep breathing. He seems to be hallucinating food, and motions feeding himself often. He is not able to answer questions were otherwise purchased the patient and review of systems. One of his daughters is with him, says his mental status continues to wax and wane, and she thinks she recognizes her at some times, and not at others.Overall he does appear brighter and more alert than yesterday. - Constitutional Vitals: Vital Signs Temp Pulse Resp BP Pulse Ox 98.2 F 75 20 120/67 93 11/26/16 11:57 11/26/16 11:57 11/26/16 11:57 11/26/16 11:57 11/26/16 11:57 Period Temp Pulse Resp BP Sys/Lee Pulse Ox Last 24 Hr 98.1 F-99.1 F 13-98 11-20 120-133/67-79 92-94 Intake and Output 11/26/16 11/26/16 11/26/16 05:59 13:59 21:59 Intake Total 382 / 382 Output Total Balance 382 / 382 Intake & Output: Intake & Output 11/26/16 11/26/16 11/26/16 05:59 13:59 21:59 Intake Total 382 / 382 Output Total Balance 382 / 382 Intake: IV 382 / 382 Sodium Chloride 0.9% 1, 282 / 282 000 ml @ 100 mls/hr IV . Q10H SUKHI Rx#:[id number] Sodium Chloride 0.9% 100 100 / 100 ml @ 100 mls/hr IV Q8H SUKHI with Primaxin 500 mg Rx#:[id number] Oral Output: Urine Catheter Amount Exam: he is awake, with eyes open, but appears to be hallucinating, and tries to feed himself food from the air. he will follow some commands, such as deep breathing on command. Neck is supple without obvious lymphadenopathy or JVD. Cardiac exam shows regular rate and rhythm. Lungs:Are essentially clear to auscultation. Abdomen appears soft and nontender without obvious masses. Bowel sounds are active. Extremities show no significant edema. Neurologic: He is still unable to communicate, but does appear more awake than yesterday. his daughter notes he seemed a bit combative this morning, but currently is quite cooperative. He is moving all extremities equally. Medical - PN: Obj Da - Labs CBC & Chem 7: 11/26/16 04:55 11/26/16 04:55 Labs: Abnormal Lab Results 11/26/16 11/26/16 11/26/16 04:55 04:55 04:55 WBC 14.3 H RBC 2.99 L Hgb 8.8 L Hct 27.5 L RDW 14.9 H MPV 7.3 L Lymph % (Auto) 13.0 L [place] % (Auto) Gran # 10.9 H [place] # 1.1 H PT 32.9 H INR 3.1 H Carbon Dioxide 21 L Glucose 63 L Calcium 8.1 L Phosphorus 1.7 L Lactate Dehydrogenase Total Protein Albumin 2.7 L Albumin/Globulin Ratio 0.8 L Urine Protein Urine Glucose (UA) Urine Ketones Urine Occult Blood Urine RBC Urine WBC Hyaline Casts 11/25/16 11/25/16 11/25/16 10:31 05:20 05:20 WBC RBC Hgb Hct RDW MPV Lymph % (Auto) [place] % (Auto) Gran # [place] # PT 62.8 H INR 6.9 H* Carbon Dioxide 21 L Glucose 61 L Calcium 8.1 L Phosphorus 1.9 L Lactate Dehydrogenase 288 H Total Protein Albumin 2.8 L Albumin/Globulin Ratio 0.8 L Urine Protein 30 A Urine Glucose (UA) 50 A Urine Ketones 20 A Urine Occult Blood 0.2 A Urine RBC 36 H Urine WBC 9 H Hyaline Casts 3 H 11/25/16 11/24/16 11/24/16 05:20 05:21 05:21 WBC 13.4 H RBC 3.04 L Hgb 9.1 L Hct 28.2 L RDW 14.9 H MPV 7.3 L Lymph % (Auto) 11.4 L [place] % (Auto) Gran # 10.3 H Lancaster # 1.1 H PT 51.9 H INR 5.4 H Carbon Dioxide Glucose Calcium 8.1 L Phosphorus 1.5 L Lactate Dehydrogenase Total Protein 5.8 L Albumin 2.8 L Albumin/Globulin Ratio 0.9 L Urine Protein Urine Glucose (UA) Urine Ketones Urine Occult Blood Urine RBC Urine WBC Hyaline Casts 11/24/16 05:21 WBC 11.4 H RBC 2.86 L Hgb 8.6 L Hct 26.2 L RDW 14.6 H MPV 7.1 L Lymph % (Auto) [place] % (Auto) 10.4 H Gran # Lancaster # 1.2 H PT INR Carbon Dioxide Glucose Calcium Phosphorus Lactate Dehydrogenase Total Protein Albumin Albumin/Globulin Ratio Urine Protein Urine Glucose (UA) Urine Ketones Urine Occult Blood Urine RBC Urine WBC Hyaline Casts urine is negative for nitrites and leukocyte esterase. chest x-ray shows moderate cardiomegaly with minor bibasilar atelectasis noted chest x-ray from November 21: showed mild cardiomegaly which was stable, as well as mild bibasilar atelectasis. head CT shows moderate atrophy and chronic ischemic changes, with slight progression compared to 3 years ago. There is no hemorrhage. There does appear to be acute sphenoid sinusitis. Nasal MRSA screen was negative. Urine culture and blood cultures from November 21, 2016: have been negative. Urine and blood cultures from November 14, 2016: Grew Enterobacter cloaca. Meds: Medications Acetaminophen (Tylenol) 650 mg PO Q6HP PRN PRN Reason: PAIN/FEVER > 101 Albuterol/Ipratropium (Duoneb) 3 ml NEB Q4HRT [facility] Last Admin: 11/26/16 10:50 Dose: 3 ml Bisacodyl (Dulcolax) 10 mg MT Q3DP PRN PRN Reason: Constipation Citalopram Hydrobromide (Celexa) 20 mg PO QDAY [facility] Last Admin: 11/26/16 07:06 Dose: Not Given Dextrose (Dextrose 50%) 0 ml IV UD PRN PRN Reason: Hypoglycemia Last Admin: 11/26/16 07:05 Dose: 25 ml Diagnostic Test (Pha) (Accu-Chek) 1 each FS ACHS [facility] Last Admin: 11/26/16 11:37 Dose: 1 each Docusate Sodium (Colace) 100 mg PO BID [facility] Last Admin: 11/26/16 07:06 Dose: Not Given Famotidine (Pepcid) 20 mg IV QHS [facility] Last Admin: 11/25/16 21:30 Dose: 20 mg Heparin Sodium (Porcine) (Heparin Flush) 2 ml IV Q12 [facility] Last Admin: 11/26/16 13:49 Dose: 2 ml Imipenem/Cilastatin Sodium 500 (mg/ Sodium Chloride) 100 mls @ 100 mls/hr IV Q8H [facility] Last Admin: 11/26/16 13:40 Dose: 100 mls/hr Magnesium Sulfate 8.12 meq/ (Dextrose) 52 mls @ 104 mls/hr IV PRN PRN PRN Reason: Hypomagnesemia, Mg </= to 1.7 Last Admin: 11/26/16 08:16 Dose: 104 mls/hr Sodium Chloride (Sodium Chloride 0.9%) 1,000 mls @ 100 mls/hr IV .Q10H [facility] Last Admin: 11/26/16 10:42 Dose: Not Given Vancomycin HCl 1,500 mg/ (Sodium Chloride) 500 mls @ 333.3 mls/hr IV Q24H [facility] Last Admin: 11/26/16 10:41 Dose: 333.3 mls/hr Insulin Human Lispro (Humalog) 0 unit SQ [facility] PRN Reason: Protocol Last Admin: 11/26/16 11:37 Dose: Not Given Megestrol Acetate (Megace) 400 mg PO BID [facility] Last Admin: 11/26/16 07:06 Dose: Not Given Metoprolol Tartrate (Lopressor) 12.5 mg PO BID [facility] Last Admin: 11/26/16 07:06 Dose: Not Given Trimethoprim Sulfate & Polymyxin B Ophthalmic Solution 0 dose OU QID [facility] Last Admin: 11/26/16 13:41 Dose: 1 dose Ondansetron HCl (Zofran) 4 mg IV Q4HP PRN PRN Reason: Nausea And Vomiting Potassium Chloride (Kdur) 40 meq PO QAMCC [facility] Last Admin: 11/26/16 07:06 Dose: Not Given Simvastatin (Zocor) 20 mg PO HS [facility] Last Admin: 11/25/16 21:32 Dose: Not Given Sodium Chloride (Saline Flush) 10 ml IV UD PRN PRN Reason: FLUSH Tamsulosin HCl (Flomax) 0.4 mg PO [facility] Last Admin: 11/25/16 21:31 Dose: Not Given Warfarin Sodium (Coumadin Per Pharmacy) 1 order PO [facility] [place] Medical - PN: A/P - Time Spent With Patient Total time spent is greater than 50% in coordination of care (as documented) at patient's floor/unit and/or counseling patient: - Narrative A/P Narrative: #1.infectious disease. this patient presents with clinical decline in the setting of ongoing urinary tract infection. He may have not been clearing his infection because of the grossly purulent for catheter. This has now been changed.recent urine culture grew Enterobacter cloaca A, which is sensitive to Zosyn, Bactrim, meropenem, Levaquin, but resistant to ampicillin Ancef, cefoxitin, nitrofurantoin. -Because of possible acute sinusitis,antibiotics were changed to imipenem for better Pseudomonas coverage.White blood cell count bumped again today, and he did have a low-grade fever.source is not clear. -I have added vancomycin to be sure he is covered for hospital-acquired staph infection. urinalysis does not suggest UTI, and chest x-ray does not suggest new pneumonia. White blood cell count is actually even a bit higher today and previously, with absolute granulocyte count now up to 10,900. #2. Neurologic. The patient appears to be suffering with a medical delirium/metabolic encephalopathy. . This was discussed at length with numerous family members . Given his advanced age and overall frail state, the family does not want to be too aggressive, but they would like to continue to give him a chance to clear with IV antibiotics. -he does seem to be a little bit clearer , so his family and I have agreed to continue with current therapy to give him the best chance of improvement. I discussed with his daughter this morning,that we could consider repeat head scanning and/or LP,but none of us think that he would sit still for any testing , and again, they have not really wanted to be super aggressive with him, given his advanced age. We will continue with her current plan of treatment for now, and try to make some decisions again in the morning, depending on whether he is better or worse. #3. Hematologic. -Patient has been maintained on warfarin therapy, but this is been on hold due to elevated INR. iNR is improved today, after he received vitamin K yesterday. #4. CODE STATUS: The patient does have a DNR status, but the family is not quite ready to move to comfort care only. #5. DVT prophylaxis: The patient is fully anticoagulated. #6. Renal. Patient appears to have mild chronic kidney disease, which is stable. Phosphorus and calcium are both a bit low, as is albumin. His oral intake is quite poor at this time.i do not think the family would consider parenteral nutrition. #7. Cardiac. Patient has history of chronic atrial fibrillation or paroxysmal A. fib. He remains anticoagulated.heart rates have been controlled. #8. Type 2 diabetes.Accu-Cheks have been controlled. glucose was a bit low this morning at 66 . he really has no oral intake. He continues on sliding scale insulin coverage but his oral hypoglycemics are on hold. #9. . Patient has history of urinary retention and I believe has a chronic Joseph catheter usually. He continues on Flomax. There is also a previous history of prostate cancer. #10. Nutrition. Speech therapy worked with him , but because it is generalized somnolence, he remains high risk for aspiration. We have decided to make him nothing by mouth except for occasional ice chips. continue IV fluids for hydration. I don't believe he is a candidate for parenteral nutrition. approximately 30 minutes was spent today, reviewing the patient's records and test results, examining him, and reviewing his course and plan with both staff and with numerous family members, as well as writing orders. Medical - PN: Qual - Stroke Symptom Onset Unknown: No - VTE Deep Vein Thrombosis/Pulmonary Embolism Present on Admission: No
[2016-11-26] MEDS: DEXTROSE 5%-1/2NS W/20MEQ KCL 1,000 ML IV SCH (18:45)
[2016-11-26] MEDS: FAMOTIDINE/PF 20 MG/2 ML VIAL IV SCH (20:49)
[2016-11-26] MEDS: SIMVASTATIN 20 MG TABLET PO SCH (20:51)
[2016-11-26] MEDS: TAMSULOSIN 0.4 MG CAPSULE PO SCH (20:51)
[2016-11-27] MEDS: IPRATROPIUM/ALBUTEROL 3 ML AMPUL.NEB NEB SCH ×6 (04:40→23:18)
[2016-11-27] MEDS: IMIPENEM/CILASTATIN SODIUM 500 MG in 0.9 % SODIUM CHLORIDE 100 ML IV SCH ×3 (05:21→22:38)
[2016-11-27] MEDS: POTASSIUM CHLORIDE 20 MEQ TABLET PO SCH (06:27)
[2016-11-27] MEDS: METOPROLOL TARTRATE 25 MG TABLET PO SCH ×2 (10:17→21:39)
[2016-11-27] MEDS: CITALOPRAM 20 MG TABLET PO SCH (10:17)
[2016-11-27] MEDS: DOCUSATE SODIUM 100 MG CAPSULE PO SCH ×2 (10:17→21:40)
[2016-11-27] MEDS: MEGESTROL ACETATE 400 MG/10 ML ORAL.SUSP PO SCH ×2 (10:17→21:39)
[2016-11-27] MEDS: INSULIN LISPRO 1 UNIT/0.01 ML UNIT SQ SCH ×4 (10:18→22:35)
[2016-11-27] MEDS: DEXTROSE 5%-1/2NS W/20MEQ KCL 1,000 ML IV SCH ×2 (10:19→17:11)
[2016-11-27] MEDS: VANCOMYCIN 1,000 MG in 0.9 % SODIUM CHLORIDE 250 ML IV SCH (10:48)
[2016-11-27] MEDS ORDERED: LORazepam 2 MG/ML VIAL IV PRN (12:31)
--- NOTE | 2016-11-27 13:04 | Internal Med Progress Note ---
Medical - PN: Subj Patient information: Note initiated : 11/27/16 at 1:00 pm Service Date, if different from initiated Date: [] Patient: Shekhar De La Cruz a 89 y/o M admitted on 11/22/16 for High INR, Malaise/ Dehydration, Failure to Thrive. Chief Complaint: [] Interval history: History of present illness: 11/21/16: Mr. De La Cruz is a 89 year old male with recently discharged from the hospital (11/18/16) for septic shock secondary to enterobacter uti. and on Ivan[facility] for same at [facility], presented to the ER for elevated INR and weakness, decreased mentation and decline in po intake. Patient was worked up in the ER and no acute source of infection noted. CT head showed sphenoid sinusitis, u/a was positive for infection, cultures sent. wbc was not elevated on presentation. CXR reported negative. CT head neg for acute intracranial process. Pt also dehydrated due to decreased po intake. 11/22 Patient seen examined, patient had no acute overnight events, hard of hearing and denies any complaints, is pleasanltly confused and has waxing and waning mentation, which is better than yesterday. He is able to tolerate PO diet, and Diet to be resumed as per ST recommendations. His wbc count is up today, etiology uncertain. Given his sinusitis, and h/o DM, will change invanz to imipenum (adjust for renal function) this should cover for the enterobacter and possible pseudomonas is present in the sinus. Will change joseph today. Family at bedside updated on patients condition. 11/23/16: the nurses tell me they changed his Joseph catheter yesterday, and it was grossly purulent. although vital signs been fairly stable overnight, the family notes the patient seems more confused, and at times agitated, today. They also note, however, that he is moving his arms and legs a lot more, and previously had seemed too weak to do much moving. the patient is clearly confused, and really cannot answer any questions or do much in the way of following commands today. He does occasionally try to sit up , and an apparent attempt to get out of bed. The family reports that up until a couple of weeks ago he was very sharp mentally. He does not have known dementia. 11/24/16:Today, the patient remains quite confused, however he does seem more awake. He actually was able to follow some commands that were given by the speech therapist today. However, he remains extremely drifty, and his family notes that he only intermittently seems to recognize them. He is unable to participate in review of systems.his speech is mostly unintelligible. 11/25/16: today, the patient remains fairly obtunded, however he is still able to open his eyes briefly on command, and does follow commands to do simple things, such as deep breathe.he had a fairly uneventful night. He is not able to participate in review of systems. 11/26/16: today, the patient does appear a little more awake and alert, but his speech is still unintelligible. He is once again, however, able to follow some commands such as deep breathing. He seems to be hallucinating food, and motions feeding himself often. He is not able to answer questions were otherwise purchased the patient and review of systems. One of his daughters is with him, says his mental status continues to wax and wane, and she thinks she recognizes her at some times, and not at others.Overall he does appear brighter and more alert than yesterday. 11/27/16:; Today, the patient continues to bemostly obtunded, with unintelligible speech. He is occasionally able to follow simple commands, but for the most part remains extremely confused. He continues to have occasional involuntary flexion and extension which are not purposeful. He continues to appear to be hallucinating. he has remained nothing by mouth, as he has a high aspiration risk. He is unable to give a history. I discussed his case again today with another one of his daughters. Discussed that if he were in better shape and they wanted us to be more aggressive, we would have to start doingmore scans, such as a brain MRI or CAT scan of chest abdomen and pelvis, and perhaps a lumbar puncture. However given his advanced age and frail state, I doubt that these would be appropriate at this time. case management and I discussed with her that she may want togather the family, and decide how to honor the patient's wishes, and considereither moving him to comfort care, or deciding if they want to pursue more aggressive workup. he continues on imipenem and vancomycin, to cover both EnterobacterUTI and bacteremia, and a sphenoid sinusitis. - Constitutional Vitals: Vital Signs Temp Pulse Resp BP Pulse Ox 99.2 F 88 20 141/70 94 11/27/16 12:48 11/27/16 12:48 11/27/16 12:48 11/27/16 12:48 11/27/16 07:00 Period Temp Pulse Resp BP Sys/Lee Pulse Ox Last 24 Hr 98.0 F-99.2 F 81-101 16-24 141-152/55-83 92-96 Intake and Output 11/26/16 11/27/16 11/27/16 21:59 05:59 13:59 Intake Total 100 / 100 100 / 100 Output Total 950 / 950 900 / 900 430 / 430 Balance -850 / -850 -800 / -800 -430 / -430 Weight 194 lb 8 oz Intake & Output: Intake & Output 11/26/16 11/27/16 11/27/16 21:59 05:59 13:59 Intake Total 100 / 100 100 / 100 Output Total 950 / 950 900 / 900 430 / 430 Balance -850 / -850 -800 / -800 -430 / -430 Weight 194 lb 8 oz Intake: IV 100 / 100 100 / 100 Sodium Chloride 0.9% 100 100 / 100 100 / 100 ml @ 100 mls/hr IV Q8H SUKHI with Primaxin 500 mg Rx#:[id number] Oral 0 / 0 Output: Urine Catheter Amount 950 / 950 900 / 900 430 / 430 Exam: he is awake,at times, with eyes open, but appears to be hallucinating, he will follow some commands, such as deep breathing on command. attempts at speech are unintelligible. Neck is supple without obvious lymphadenopathy or JVD. Cardiac exam shows regular rate and rhythm. Lungs:Are essentially clear to auscultation. Abdomen appears soft and nontender without obvious masses. Bowel sounds are active. Extremities show no significant edema. Neurologic: He is still unable to communicate, . He is moving all extremities equally, but does have occasional involuntary flexion and extension.. Medical - PN: Obj Da - Labs CBC & Chem 7: 11/26/16 04:55 11/26/16 04:55 Labs: Abnormal Lab Results 11/27/16 11/27/16 11/26/16 08:59 08:59 04:55 WBC RBC Hgb Hct RDW MPV Lymph % (Auto) Gran # Guthrie # PT 20.0 H 32.9 H INR 1.6 H 3.1 H Carbon Dioxide Glucose Calcium Phosphorus Lactate Dehydrogenase Albumin Albumin/Globulin Ratio Urine Protein Urine Glucose (UA) Urine Ketones Urine Occult Blood Urine RBC Urine WBC Hyaline Casts Vancomycin Trough 19.3 H 11/26/16 11/26/16 11/25/16 04:55 04:55 10:31 WBC 14.3 H RBC 2.99 L Hgb 8.8 L Hct 27.5 L RDW 14.9 H MPV 7.3 L Lymph % (Auto) 13.0 L Gran # 10.9 H Guthrie # 1.1 H PT INR Carbon Dioxide 21 L Glucose 63 L Calcium 8.1 L Phosphorus 1.7 L Lactate Dehydrogenase Albumin 2.7 L Albumin/Globulin Ratio 0.8 L Urine Protein 30 A Urine Glucose (UA) 50 A Urine Ketones 20 A Urine Occult Blood 0.2 A Urine RBC 36 H Urine WBC 9 H Hyaline Casts 3 H Vancomycin Trough 11/25/16 11/25/16 11/25/16 05:20 05:20 05:20 WBC 13.4 H RBC 3.04 L Hgb 9.1 L Hct 28.2 L RDW 14.9 H MPV 7.3 L Lymph % (Auto) 11.4 L Gran # 10.3 H Guthrie # 1.1 H PT 62.8 H INR 6.9 H* Carbon Dioxide 21 L Glucose 61 L Calcium 8.1 L Phosphorus 1.9 L Lactate Dehydrogenase 288 H Albumin 2.8 L Albumin/Globulin Ratio 0.8 L Urine Protein Urine Glucose (UA) Urine Ketones Urine Occult Blood Urine RBC Urine WBC Hyaline Casts Vancomycin Trough urine is negative for nitrites and leukocyte esterase. chest x-ray shows moderate cardiomegaly with minor bibasilar atelectasis noted chest x-ray from November 21: showed mild cardiomegaly which was stable, as well as mild bibasilar atelectasis. head CT shows moderate atrophy and chronic ischemic changes, with slight progression compared to 3 years ago. There is no hemorrhage. There does appear to be acute sphenoid sinusitis. Nasal MRSA screen was negative. Urine culture and blood cultures from November 21, 2016: have been negative. Urine and blood cultures from November 14, 2016: Grew Enterobacter cloaca. Meds: Medications Acetaminophen (Tylenol) 650 mg PO Q6HP PRN PRN Reason: PAIN/FEVER > 101 Albuterol/Ipratropium (Duoneb) 3 ml NEB Q4HRT [facility] Last Admin: 11/27/16 10:37 Dose: 3 ml Bisacodyl (Dulcolax) 10 mg DE Q3DP PRN PRN Reason: Constipation Citalopram Hydrobromide (Celexa) 20 mg PO QDAY [facility] Last Admin: 11/27/16 10:17 Dose: Not Given Dextrose (Dextrose 50%) 0 ml IV UD PRN PRN Reason: Hypoglycemia Last Admin: 11/26/16 07:05 Dose: 25 ml Diagnostic Test (Pha) (Accu-Chek) 1 each FS ACHS [facility] Last Admin: 11/27/16 11:02 Dose: 1 each Docusate Sodium (Colace) 100 mg PO BID [facility] Last Admin: 11/27/16 10:17 Dose: Not Given Famotidine (Pepcid) 20 mg IV QHS [facility] Last Admin: 11/26/16 20:49 Dose: 20 mg Heparin Sodium (Porcine) (Heparin Flush) 2 ml IV Q12 [facility] Last Admin: 11/26/16 20:50 Dose: 2 ml Imipenem/Cilastatin Sodium 500 (mg/ Sodium Chloride) 100 mls @ 100 mls/hr IV Q8H [facility] Last Admin: 11/27/16 05:21 Dose: 100 mls/hr Magnesium Sulfate 8.12 meq/ (Dextrose) 52 mls @ 104 mls/hr IV PRN PRN PRN Reason: Hypomagnesemia, Mg </= to 1.7 Last Admin: 11/26/16 08:16 Dose: 104 mls/hr Potassium Chloride/Dextrose/Sod Cl (Dextrose 5%-1/2ns W/20meq Kcl) 1,000 mls @ 84 mls/hr IV .[id number] [facility] Last Admin: 11/27/16 10:19 Dose: Not Given Vancomycin HCl 1,000 mg/ (Sodium Chloride) 250 mls @ 250 mls/hr IV Q24H [facility] Last Admin: 11/27/16 10:48 Dose: 250 mls/hr Insulin Human Lispro (Humalog) 0 unit SQ ACHS SUKHI PRN Reason: Protocol Last Admin: 11/27/16 10:18 Dose: Not Given Lorazepam (Ativan) 1 mg IV Q2-4HP PRN PRN Reason: ANXIETY/SEDATION Megestrol Acetate (Megace) 400 mg PO BID [facility] Last Admin: 11/27/16 10:17 Dose: Not Given Metoprolol Tartrate (Lopressor) 12.5 mg PO BID [facility] Last Admin: 11/27/16 10:17 Dose: Not Given Trimethoprim Sulfate & Polymyxin B Ophthalmic Solution 0 dose OU QID [facility] Last Admin: 11/26/16 20:50 Dose: 1 dose Ondansetron HCl (Zofran) 4 mg IV Q4HP PRN PRN Reason: Nausea And Vomiting Potassium Chloride (Kdur) 40 meq PO [facility] Last Admin: 11/27/16 06:27 Dose: Not Given Simvastatin (Zocor) 20 mg PO [facility] Last Admin: 11/26/16 20:51 Dose: Not Given Sodium Chloride (Saline Flush) 10 ml IV UD PRN PRN Reason: FLUSH Tamsulosin HCl (Flomax) 0.4 mg PO [facility] Last Admin: 11/26/16 20:51 Dose: Not Given Warfarin Sodium (Coumadin Per Pharmacy) 1 order PO [facility] [place] Medical - PN: A/P - Time Spent With Patient Total time spent is greater than 50% in coordination of care (as documented) at patient's floor/unit and/or counseling patient: - Narrative A/P Narrative: #1.infectious disease. this patient presents with clinical decline in the setting of ongoing urinary tract infection. He may have not been clearing his infection because of the grossly purulent for catheter. This has now been changed.recent urine culture grew Enterobacter cloaca A, which is sensitive to Zosyn, Bactrim, meropenem, Levaquin, but resistant to ampicillin Ancef, cefoxitin, nitrofurantoin. -Because of possible acute sinusitis,antibiotics were changed to imipenem for better Pseudomonas coverage.White blood cell count bumped again today, and he did have a low-grade fever.source is not clear. -I have added vancomycin to be sure he is covered for hospital-acquired staph infection. urinalysis does not suggest UTI, and chest x-ray does not suggest new pneumonia. White blood cell count is actually even a bit higher than previously, with absolute granulocyte count now up to 10,900. #2. Neurologic. The patient appears to be suffering with a medical delirium/metabolic encephalopathy versus encephalitis.. . This was discussed at length with numerous family members . Given his advanced age and overall frail state, the family does not want to be too aggressive, but they would like to continue to give him a chance to clear with IV antibiotics. -at this time, I do not have a clear idea about why he still has an elevated white cell count and continues to run low-grade fevers. I discussed with his daughter that we would have to get much more aggressive about testing to pin this down, and I'm not sure that either the patient or the family want this. However, we aren't a point where we will need to decide whether to do more testing and treatment, or whether to move towards comfort care. #3. Hematologic. -Patient has been maintained on warfarin therapy, but this is been on hold due to elevated INR. iNR is improved today, after he received vitamin K . #4. CODE STATUS: The patient does have a DNR status, but the family is not quite ready to move to comfort care only. #5. DVT prophylaxis: The patient is fully anticoagulated. #6. Renal. Patient appears to have mild chronic kidney disease, which is stable. Phosphorus and calcium are both a bit low, as is albumin. His oral intake is quite poor at this time.i do not think the family would consider parenteral nutrition. #7. Cardiac. Patient has history of chronic atrial fibrillation or paroxysmal A. fib. He remains anticoagulated.heart rates have been controlled. #8. Type 2 diabetes.Accu-Cheks have been controlled. glucose was a bit low . he really has no oral intake. He continues on sliding scale insulin coverage but his oral hypoglycemics are on hold. #9. . Patient has history of urinary retention and I believe has a chronic Joseph catheter usually. He continues on Flomax. There is also a previous history of prostate cancer. #10. Nutrition. Speech therapy worked with him , but because it is generalized somnolence, he remains high risk for aspiration. We have decided to make him nothing by mouth except for occasional ice chips. continue IV fluids for hydration. I don't believe he is a candidate for parenteral nutrition. approximately 30 minutes was spent today, reviewing the patient's records and test results, examining him, and reviewing his course and plan with both staff and with another of his daughters and case management, as well as writing orders. Medical - PN: Qual - Stroke Symptom Onset Unknown: No - VTE Deep Vein Thrombosis/Pulmonary Embolism Present on Admission: No
[2016-11-27] MEDS: POLYMYXIN B OU SCH ×4 (13:13→21:39)
[2016-11-27] MEDS: [UNRECOGNIZED DRUG - OTHER] OU SCH ×4 (13:13→21:39)
[2016-11-27] MEDS: VANCOMYCIN 1,500 MG in 0.9 % SODIUM CHLORIDE 500 ML IV SCH (17:54)
[2016-11-27] MEDS: SIMVASTATIN 20 MG TABLET PO SCH (21:39)
[2016-11-27] MEDS: TAMSULOSIN 0.4 MG CAPSULE PO SCH (21:40)
[2016-11-27] MEDS: FAMOTIDINE/PF 20 MG/2 ML VIAL IV SCH (22:38)
[2016-11-28] MEDS: DEXTROSE 5%-1/2NS W/20MEQ KCL 1,000 ML IV SCH ×3 (02:48→17:26)
[2016-11-28] MEDS: IPRATROPIUM/ALBUTEROL 3 ML AMPUL.NEB NEB SCH ×6 (02:51→22:44)
[2016-11-28 05:31] LABS: Basophils # (Auto) 0.1 K/mcL (0.0-0.3); Basophils % (Auto) 0.6 % (0.0-2.0); Eosinophils # (Auto) 0.7 K/mcL (0.0-0.7); Eosinophils % (Auto) 5.4 % (0.0-7.0); Granulocytes % (Auto) 69.6 % (38.0-78.0); Lymphocytes # (Auto) 1.8 K/mcL (1.5-4.8); Lymphocytes % (Auto) 14.2 % (15.5-49.0); Mean Cell Volume 92.2 fL (80.0-100.0); Mean Corpuscular HGB Conc 32.5 g/dL (31.0-36.0); Monocytes # (Auto) 1.3 K/mcL (0.1-0.9); Monocytes % (Auto) 10.2 % (1.0-9.0); Platelet Count 294 K/mcL (140-440); RBC 3.02 M/mcL (4.50-5.90); Red Cell Distribution Width 14.8 % (11.5-14.5)
[2016-11-28] MEDS: IMIPENEM/CILASTATIN SODIUM 500 MG in 0.9 % SODIUM CHLORIDE 100 ML IV SCH ×3 (05:40→21:26)
[2016-11-28 06:00] LABS: ALT/SGPT 6 U/l (0-40); Albumin 2.7 gm/dL (3.2-5.2); Alkaline Phosphatase 54 U/L (39-117); Bilirubin,Direct < 0.2 mg/dL (0.0-0.3); Blood Urea Nitrogen 8 mg/dl (8-23); Gamma Glutamyl Transpeptidase 25 U/L (8-61); Magnesium 1.6 mg/dL (1.6-2.5); Phosphorous 1.6 mg/dL (2.7-4.5)
[2016-11-28] MEDS: POTASSIUM CHLORIDE 20 MEQ TABLET PO SCH (06:43)
[2016-11-28] MEDS ORDERED: POTASSIUM PHOSPHATE 40 MEQ in DEXTROSE 5% IN WATER 500 ML IV ONE (09:29)
[2016-11-28] MEDS: [UNRECOGNIZED DRUG - OTHER] OU SCH ×4 (10:41→21:36)
[2016-11-28] MEDS: MEGESTROL ACETATE 400 MG/10 ML ORAL.SUSP PO SCH ×2 (10:41→21:25)
[2016-11-28] MEDS: CITALOPRAM 20 MG TABLET PO SCH (10:41)
[2016-11-28] MEDS: POLYMYXIN B OU SCH ×4 (10:41→21:36)
[2016-11-28] MEDS: INSULIN LISPRO 1 UNIT/0.01 ML UNIT SQ SCH ×4 (10:41→21:37)
[2016-11-28] MEDS: METOPROLOL TARTRATE 25 MG TABLET PO SCH ×2 (10:41→21:24)
[2016-11-28] MEDS: DOCUSATE SODIUM 100 MG CAPSULE PO SCH ×2 (10:41→21:23)
[2016-11-28] MEDS: VANCOMYCIN 1,000 MG in 0.9 % SODIUM CHLORIDE 250 ML IV SCH (10:53)
--- NOTE | 2016-11-28 11:34 | Internal Med Progress Note ---
Medical - PN: Subj Patient information: Note initiated : 11/28/16 at 11:32 am Service Date, if different from initiated Date: [] Patient: Shekhar De La Cruz a 89 y/o M admitted on 11/22/16 for High INR, Malaise/ Dehydration, Failure to Thrive. Chief Complaint: [] Interval history: History of present illness: 11/21/16: Mr. De La Cruz is a 89 year old male with recently discharged from the hospital (11/18/16) for septic shock secondary to enterobacter uti. and on [place] for same at [place], presented to the ER for elevated INR and weakness, decreased mentation and decline in po intake. Patient was worked up in the ER and no acute source of infection noted. CT head showed sphenoid sinusitis, u/a was positive for infection, cultures sent. wbc was not elevated on presentation. CXR reported negative. CT head neg for acute intracranial process. Pt also dehydrated due to decreased po intake. 11/22 Patient seen examined, patient had no acute overnight events, hard of hearing and denies any complaints, is pleasanltly confused and has waxing and waning mentation, which is better than yesterday. He is able to tolerate PO diet, and Diet to be resumed as per ST recommendations. His wbc count is up today, etiology uncertain. Given his sinusitis, and h/o DM, will change invanz to imipenum (adjust for renal function) this should cover for the enterobacter and possible pseudomonas is present in the sinus. Will change joseph today. Family at bedside updated on patients condition. 11/23/16: the nurses tell me they changed his Joseph catheter yesterday, and it was grossly purulent. although vital signs been fairly stable overnight, the family notes the patient seems more confused, and at times agitated, today. They also note, however, that he is moving his arms and legs a lot more, and previously had seemed too weak to do much moving. the patient is clearly confused, and really cannot answer any questions or do much in the way of following commands today. He does occasionally try to sit up , and an apparent attempt to get out of bed. The family reports that up until a couple of weeks ago he was very sharp mentally. He does not have known dementia. 11/24/16:Today, the patient remains quite confused, however he does seem more awake. He actually was able to follow some commands that were given by the speech therapist today. However, he remains extremely drifty, and his family notes that he only intermittently seems to recognize them. He is unable to participate in review of systems.his speech is mostly unintelligible. 11/25/16: today, the patient remains fairly obtunded, however he is still able to open his eyes briefly on command, and does follow commands to do simple things, such as deep breathe.he had a fairly uneventful night. He is not able to participate in review of systems. 11/26/16: today, the patient does appear a little more awake and alert, but his speech is still unintelligible. He is once again, however, able to follow some commands such as deep breathing. He seems to be hallucinating food, and motions feeding himself often. He is not able to answer questions were otherwise purchased the patient and review of systems. One of his daughters is with him, says his mental status continues to wax and wane, and she thinks she recognizes her at some times, and not at others.Overall he does appear brighter and more alert than yesterday. 11/27/16:; Today, the patient continues to bemostly obtunded, with unintelligible speech. He is occasionally able to follow simple commands, but for the most part remains extremely confused. He continues to have occasional involuntary flexion and extension which are not purposeful. He continues to appear to be hallucinating. he has remained nothing by mouth, as he has a high aspiration risk. He is unable to give a history. I discussed his case again today with another one of his daughters. Discussed that if he were in better shape and they wanted us to be more aggressive, we would have to start doing more scans, such as a brain MRI or CAT scan of chest abdomen and pelvis, and perhaps a lumbar puncture. However given his advanced age and frail state, I doubt that these would be appropriate at this time. case management and I discussed with her that she may want together the family, and decide how to honor the patient's wishes, and considereither moving him to comfort care, or deciding if they want to pursue more aggressive workup. he continues on imipenem and vancomycin, to cover both Enterobacter UTI and bacteremia, and a sphenoid sinusitis. 11/28 Pt seen this AM, daughter in room with the patient, This AM he seems to be doing much better, he was given ativan which helped him sleep, after which his is more coherent today, He denies any acute issues and wanted to eat. The patient wbc count is better. He will have ST eval and ongoing PT to see if his condition improves. His prognosis depends on his ability to eat by self, this was explained to the family. Continue Imipenum and vancomycin. Pertinent ROS: Denies headache, dizziness Denies chest pain, palpitations Denies cough or shortness of breath Denies abdominal pain, nausea or vomiting. - Constitutional Vitals: Vital Signs Temp Pulse Resp BP Pulse Ox 97.9 F 72 12 138/73 94 11/28/16 07:57 11/28/16 11:29 11/28/16 11:29 11/28/16 07:57 11/28/16 11:27 Period Temp Pulse Resp BP Sys/Lee Pulse Ox Last 24 Hr 97.8 F-99.2 F 71-88 12-24 123-141/65-75 88-98 Intake and Output 11/27/16 11/28/16 11/28/16 21:59 05:59 13:59 Intake Total 100 / 100 908 / 908 Output Total 400 / 400 825 / 825 Balance -300 / -300 83 / 83 Weight 195 lb Intake & Output: Intake & Output 11/27/16 11/28/16 11/28/16 21:59 05:59 13:59 Intake Total 100 / 100 908 / 908 Output Total 400 / 400 825 / 825 Balance -300 / -300 83 / 83 Weight 195 lb Intake: IV 100 / 100 908 / 908 Dextrose 5%-1/2Ns W/20Meq 808 / 808 KCl 1,000 ml @ 84 mls/hr IV .[id number] SUKHI Rx#: [id number] Sodium Chloride 0.9% 100 100 / 100 100 / 100 ml @ 100 mls/hr IV Q8H SUKHI with Primaxin 500 mg Rx#:[id number] Oral 0 / 0 Output: Urine Catheter Amount 400 / 400 825 / 825 Exam: Constitutional; Afebrile, cooperative, drowsy but easily awoken, not in distress. Eyes- No icterus, Pupils equal, reactive, No periorbital swelling Ears- Ext ear normal, hearing hard to conversation. Neck- Midline trachea, supple Respiratory system: Air Entry equal on both sides, basilar crackles CVS- Rate normal rhythm irregular, S1,S2 heard, no gallop, no rub. 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 Medical - PN: Obj Da - Labs CBC & Chem 7: 11/28/16 04:00 11/28/16 04:00 Labs: Abnormal Lab Results 11/28/16 11/28/16 11/28/16 04:00 04:00 04:00 WBC 12.5 H RBC 3.02 L Hgb 9.0 L Hct 27.8 L RDW 14.8 H MPV Lymph % (Auto) 14.2 L [place] % (Auto) 10.2 H Gran # 8.7 H [place] # 1.3 H PT 17.9 H INR 1.4 H Carbon Dioxide Glucose Calcium 7.9 L Phosphorus 1.6 L Total Protein 5.5 L Albumin 2.7 L Albumin/Globulin Ratio Urine Protein Urine Glucose (UA) Urine Ketones Urine Occult Blood Urine RBC Urine WBC Hyaline Casts Vancomycin Trough 11/27/16 11/27/16 11/26/16 08:59 08:59 04:55 WBC RBC Hgb Hct RDW MPV Lymph % (Auto) [place] % (Auto) Gran # [place] # PT 20.0 H 32.9 H INR 1.6 H 3.1 H Carbon Dioxide Glucose Calcium Phosphorus Total Protein Albumin Albumin/Globulin Ratio Urine Protein Urine Glucose (UA) Urine Ketones Urine Occult Blood Urine RBC Urine WBC Hyaline Casts Vancomycin Trough 19.3 H 11/26/16 11/26/16 11/25/16 04:55 04:55 10:31 WBC 14.3 H RBC 2.99 L Hgb 8.8 L Hct 27.5 L RDW 14.9 H MPV 7.3 L Lymph % (Auto) 13.0 L [place] % (Auto) Gran # 10.9 H [place] # 1.1 H PT INR Carbon Dioxide 21 L Glucose 63 L Calcium 8.1 L Phosphorus 1.7 L Total Protein Albumin 2.7 L Albumin/Globulin Ratio 0.8 L Urine Protein 30 A Urine Glucose (UA) 50 A Urine Ketones 20 A Urine Occult Blood 0.2 A Urine RBC 36 H Urine WBC 9 H Hyaline Casts 3 H Vancomycin Trough Meds: Medications Acetaminophen (Tylenol) 650 mg PO Q6HP PRN PRN Reason: PAIN/FEVER > 101 Albuterol/Ipratropium (Duoneb) 3 ml NEB Q4HRT COUNT INCLUDES THE [facility] Last Admin: 11/28/16 11:25 Dose: 3 ml Bisacodyl (Dulcolax) 10 mg NE Q3DP PRN PRN Reason: Constipation Citalopram Hydrobromide (Celexa) 20 mg PO QDAY COUNT INCLUDES THE [facility] Last Admin: 11/28/16 10:41 Dose: Not Given Dextrose (Dextrose 50%) 0 ml IV UD PRN PRN Reason: Hypoglycemia Last Admin: 11/26/16 07:05 Dose: 25 ml Diagnostic Test (Pha) (Accu-Chek) 1 each FS ACHS COUNT INCLUDES THE [facility] Last Admin: 11/28/16 10:40 Dose: 1 each Docusate Sodium (Colace) 100 mg PO BID COUNT INCLUDES THE [facility] Last Admin: 11/28/16 10:41 Dose: Not Given Famotidine (Pepcid) 20 mg IV QHS COUNT INCLUDES THE [facility] Last Admin: 11/27/16 22:38 Dose: 20 mg Heparin Sodium (Porcine) (Heparin Flush) 2 ml IV Q12 COUNT INCLUDES THE [facility] Last Admin: 11/27/16 22:34 Dose: 2 ml Imipenem/Cilastatin Sodium 500 (mg/ Sodium Chloride) 100 mls @ 100 mls/hr IV Q8H COUNT INCLUDES THE [facility] Last Admin: 11/28/16 05:40 Dose: 100 mls/hr Magnesium Sulfate 8.12 meq/ (Dextrose) 52 mls @ 104 mls/hr IV PRN PRN PRN Reason: Hypomagnesemia, Mg </= to 1.7 Last Admin: 11/26/16 08:16 Dose: 104 mls/hr Potassium Chloride/Dextrose/Sod Cl (Dextrose 5%-1/2ns W/20meq Kcl) 1,000 mls @ 84 mls/hr IV .[id number] COUNT INCLUDES THE [facility] Last Admin: 11/28/16 05:34 Dose: Not Given Vancomycin HCl 1,000 mg/ (Sodium Chloride) 250 mls @ 250 mls/hr IV Q24H COUNT INCLUDES THE [facility] Last Admin: 11/28/16 10:53 Dose: 250 mls/hr Potassium Phosphate 40 meq/ (Dextrose) 509.0909 mls @ 127.273 mls/hr IV ONCE ONE Stop: 11/28/16 13:28 Last Admin: 11/28/16 10:50 Dose: 127.273 mls/hr Insulin Human Lispro (Humalog) [address] [facility] COUNT INCLUDES THE [facility] PRN Reason: Protocol Last Admin: 11/28/16 10:41 Dose: Not Given Lorazepam (Ativan) 1 mg IV Q2-4HP PRN PRN Reason: ANXIETY/SEDATION Last Admin: 11/27/16 13:13 Dose: 1 mg Megestrol Acetate (Megace) 400 mg PO BID COUNT INCLUDES THE [facility] Last Admin: 11/28/16 10:41 Dose: Not Given Metoprolol Tartrate (Lopressor) 12.5 mg PO BID COUNT INCLUDES THE [facility] Last Admin: 11/28/16 10:41 Dose: Not Given Trimethoprim Sulfate & Polymyxin B Ophthalmic Solution 0 dose OU QID COUNT INCLUDES THE [facility] Last Admin: 11/28/16 10:41 Dose: 1 dose Ondansetron HCl (Zofran) 4 mg IV Q4HP PRN PRN Reason: Nausea And Vomiting Potassium [facility] (Kdur) [facility] Last Admin: 11/28/16 06:43 Dose: Not Given Simvastatin (Zocor) 20 mg PO [facility] Last Admin: 11/27/16 21:39 Dose: Not Given Sodium Chloride (Saline Flush) 10 ml IV UD PRN PRN Reason: FLUSH Tamsulosin HCl (Flomax) 0.4 mg PO [facility] Last Admin: 11/27/16 21:40 Dose: Not Given Warfarin Sodium (Coumadin Per Pharmacy) 1 order PO [facility] [place] Medical - PN: A/P - Time Spent With Patient Total time spent is greater than 50% in coordination of care (as documented) at patient's floor/unit and/or counseling patient: (1) Dehydration, mild Status: Acute Current Visit: Yes (2) Failure to thrive Status: Acute Current Visit: Yes (3) Hypoxia Status: Acute Current Visit: Yes (4) Acute urinary retention Status: Acute Current Visit: No (5) Atrial fibrillation Status: Acute Current Visit: No (6) Complicated UTI (urinary tract infection) Status: Acute Current Visit: No (7) Diabetes mellitus, type II Status: Acute Current Visit: No (8) Sphenoid sinusitis Status: Acute Current Visit: Yes (9) Delirium Status: Acute Current Visit: Yes - Narrative A/P Narrative: Patient is doing better this AM Contiue Imipenum/ ertapenum for enterobacter. 06/30 days, continue vancomycin for / today Delirum getting better, continue with ativan at bedtime to help him sleep better ST eval to day to see if he is able to swallow, and start diet accordingly, if possible. Afib- HR stable, on coumadin INR sub therapeutic, dose monitored by pharmacy. Medical - PN: Qual - Stroke Symptom Onset Unknown: No - VTE Deep Vein Thrombosis/Pulmonary Embolism Present on Admission: No
[2016-11-28] MEDS ORDERED: WARFARIN 3 MG TABLET PO ONE (14:00)
[2016-11-28] MEDS: MAGNESIUM SULFATE 8.12 MEQ in DEXTROSE 5% IN WATER 50 ML IV PRN (16:05)
[2016-11-28] MEDS: TAMSULOSIN 0.4 MG CAPSULE PO SCH (21:24)
[2016-11-28] MEDS: SIMVASTATIN 20 MG TABLET PO SCH (21:25)
[2016-11-28] MEDS: FAMOTIDINE/PF 20 MG/2 ML VIAL IV SCH (21:25)
[2016-11-29] MEDS: IPRATROPIUM/ALBUTEROL 3 ML AMPUL.NEB NEB SCH ×3 (03:20→11:08)
[2016-11-29] MEDS: DEXTROSE 5%-1/2NS W/20MEQ KCL 1,000 ML IV SCH ×2 (05:09)
[2016-11-29] MEDS: IMIPENEM/CILASTATIN SODIUM 500 MG in 0.9 % SODIUM CHLORIDE 100 ML IV SCH (05:50)
[2016-11-29 06:38] LABS: Basophils # (Auto) 0.1 K/mcL (0.0-0.3); Basophils % (Auto) 0.5 % (0.0-2.0); Eosinophils # (Auto) 0.5 K/mcL (0.0-0.7); Eosinophils % (Auto) 4.8 % (0.0-7.0); Granulocytes % (Auto) 65.8 % (38.0-78.0); Lymphocytes # (Auto) 1.7 K/mcL (1.5-4.8); Lymphocytes % (Auto) 16.7 % (15.5-49.0); Mean Cell Volume 90.8 fL (80.0-100.0); Mean Corpuscular HGB Conc 32.9 g/dL (31.0-36.0); Mean Corpuscular Hemoglobin 29.8 pg (26.0-34.0); Monocytes # (Auto) 1.2 K/mcL (0.1-0.9); Monocytes % (Auto) 12.2 % (1.0-9.0); Platelet Count 266 K/mcL (140-440); RBC 3.03 M/mcL (4.50-5.90); Red Cell Distribution Width 15.5 % (11.5-14.5)
[2016-11-29 06:56] LABS: ALT/SGPT 5 U/l (0-40); Albumin 2.6 gm/dL (3.2-5.2); Albumin/Globulin Ratio 0.9 (1.0-2.3); Alkaline Phosphatase 57 U/L (39-117); Bilirubin,Direct < 0.2 mg/dL (0.0-0.3); Blood Urea Nitrogen 10 mg/dl (8-23); Gamma Glutamyl Transpeptidase 25 U/L (8-61); Magnesium 1.8 mg/dL (1.6-2.5); Uric Acid 4.2 mg/dL (2.5-8.0)
[2016-11-29] MEDS: INSULIN LISPRO 1 UNIT/0.01 ML UNIT SQ SCH ×2 (08:23→12:15)
[2016-11-29] MEDS: METOPROLOL TARTRATE 25 MG TABLET PO SCH (08:37)
[2016-11-29] MEDS: DOCUSATE SODIUM 100 MG CAPSULE PO SCH (08:37)
[2016-11-29] MEDS: CITALOPRAM 20 MG TABLET PO SCH (08:38)
[2016-11-29] MEDS: POTASSIUM CHLORIDE 20 MEQ TABLET PO SCH (08:38)
[2016-11-29] MEDS: MEGESTROL ACETATE 400 MG/10 ML ORAL.SUSP PO SCH (08:38)
[2016-11-29] MEDS: POLYMYXIN B OU SCH (08:49)
[2016-11-29] MEDS: [UNRECOGNIZED DRUG - OTHER] OU SCH (08:49)
--- NOTE | 2016-11-29 12:26 | Discharge Summary ---
Medical - DS: Prov Patient information: Note initiated : 11/29/16 at 12:24 pm Service Date, if different from initiated Date: [] Patient: Shekhar De La Cruz 89 y/o M admitted on 11/22/16 for High INR, Malaise/ Dehydration, Failure to Thrive. Chief Complaint: [] Date of admission: 11/22/16 09:00 Discharge date: 11/29/16 Primary care physician: [f_[place] Care Provider] Admitting clinician: Rosio Heredia Discharging clinician: Rosio Heredia Medical - DS: Meds - Discharge Medications Prescriptions: Imipenem/Cilastatin Sodium [Primaxin] 500 mg IV Q8H 4 Days Megestrol Acetate [Megace] 400 mg PO BID #200 oral.susp Vancomycin HCl in Dextrose 5 % [Vancomycin HCl 1G/200 ml Bag] 1 gm IV ONCE #1 [email or web address] Active and Home Medications: Home Medications citalopram 20 mg tablet 20 mg PO QDAY tab 04/04/16 [History Confirmed 11/21/16 Last Taken 11/14/16 09:00] Albuterol Sulfate [Ventolin] 2 puff INH Q4HP PRN 06/29/16 [History Confirmed 04/02 Last Taken 07/23/16] Bisacodyl [Dulcolax] 10 mg [place] DAILYP PRN 06/29/16 [History Confirmed 11/21/16 Last Taken 07/23/16] Docusate Sodium [Colace] 100 mg PO BID 06/29/16 [History Confirmed 11/21/16 Last Taken 11/14/16 09:00] Magnesium Hydroxide [Milk of Magnesia] 30 ml PO DAILYP PRN 06/29/16 [History Confirmed 11/21/16 Last Taken 11/14/16 09:00] Polyethylene Glycol 3350 [Miralax] 17 gm PO QDAYPC 06/29/16 [History Confirmed 11/21/16 Last Taken 11/14/16 09:00] Potassium Chloride 40 meq PO QDAY 06/29/16 [History Confirmed 11/21/16 Last Taken 11/14/16 09:00] Simvastatin [Zocor] 20 mg PO HS 06/29/16 [History Confirmed 11/21/16 Last Taken 11/13/16 21:00] glipiZIDE [Glucotrol] 10 mg PO ACB 10/13/16 [History Confirmed 11/21/16 Last Taken 11/14/16 09:00] sitaGLIPtin [Januvia] 100 mg PO DAILY 06/29/16 [History Confirmed 11/21/16 Last Taken 11/14/16 09:00] Acetaminophen [Tylenol] 650 mg PO Q4-6HP PRN #0 tab 07/04/16 [Rx Confirmed 11/21 Last Taken 07/23/16] Insulin Lispro [Humalog] See Protocol SQ ACHS #0 unit 07/04/16 [Rx Confirmed 04/02 Last Taken 11/14/16 17:00] Metoprolol Tartrate [Lopressor] 12.5 mg PO BID tab 07/04/16 [Rx Confirmed 11/21 Last Taken 11/14/16 09:00] Tamsulosin [Flomax] 0.4 mg PO HS cap 07/04/16 [Rx Confirmed 11/21/16 Last Taken 11/13/16 21:00] Ferrous Gluconate 324 mg PO BID 07/30/16 [History Confirmed 11/21/16 Last Taken 11/14/16 09:00] Loperamide [Imodium] 2 mg PO PRN PRN 07/30/16 [History Confirmed 11/21/16 Last Taken Unknown] Calcium Carbonate [Tums] 200 mg PO TID 09/04/16 [History Confirmed 11/21/16 Last Taken 11/14/16 09:00] Furosemide [Lasix] 20 mg PO BID 09/04/16 [History Confirmed 11/21/16 Last Taken 11/14/16 09:00] warfarin 3 mg tablet 3 mg PO DAILY tab 10/19/16 [History Confirmed 11/21/16 Last Taken 11/14/16 09:00] Ertapenem [Invanz] 1 gm IV DAILY #12 vial 11/18/16 [Rx Confirmed 11/21/16 Last Taken Unknown] Medical - DS: Hosp Hospital course: Mr. De La Cruz is a 89 year old male who was [place] hospital [place] for altered mental status/ decreased PO intake and confusion. He was discharged from this facility 2 weeks ago for enterobacter bactermia of source. AMS/ Delirum Poor oral intake- Etiology was not very clear, his Ct head showed sinusitis acute, Given his h/o DM, we changed his invanz to imipenum to cover for potential pseudomonas. The patients family was not very keen on aggressive measures. The patients mental status did not improve, CXR done later showed possible atelectasis, but vanco was added with suspiciion of pna/ to cover for MRSA. The patient eventually responded to the treatment. His WBC count improved to normal levels. His mental status cleared. It seems that ativan to sleep helped him significantly. Megace was added as appetite stimulant. UTI The patient will complete imipenum for additional 4 days. Sinusitis/ PNA- The patient is well covered with imipenum and Vanco. THe patietn needs one additioanl dose of vancomycin 1 gm on 11/30/16. Which will cover him for total 7 days of treatment Afib- HR stable, on coumaddin, pt presented with supratherapeutic inr, he needed one dose of vitamin k to help bring INR down. ON discharge his INR is sub therapeutic, he will be on coumadin 3mg once daily. Needs INR check in 3 days. Dysphagia- This is the biggest concern. Pt is non compliant with his dietary restrictions. Has signed a waiver in the past against recommendations from ST. Presently on dysphagia diet, however still remains high risk of aspiration. discussed with the family same. The patient overall has poor prognosis, given his age, ca prostate, I suspect that this mental status clearing is going to be transient and he will likely bounce back. I have discussed need for palliative care with the patients family. They will consider this and if the patients condition were to worsen again, they will contact the pcp to see if the pt status could be changed to palliative care. AT this time they want to continue with antibiotic treatment. Pt will be d/c back to rehab / NH Discharge diagnosis: Dehydration/ Possible PNA/ SInusitis. - Time Spent with Patient Total time spent providing and/or coordinating discharge services: Greater than 30 minutes Medical - DS: Exam - Constitutional Vitals: Vital Signs Temp Pulse Pulse Resp BP Pulse Ox 11/29/16 11:09 80 10 L 11/29/16 07:52 98.0 F 104 H 20 153/80 91 11/29/16 07:45 79 12 11/29/16 07:40 95 11/29/16 03:54 98.1 F 88 16 119/63 94 11/29/16 00:00 98.2 F 84 22 103/67 93 11/28/16 22:49 76 20 11/28/16 19:48 98.1 F 94 H 22 87/53 93 11/28/16 19:12 92 H 20 11/28/16 19:08 92 11/28/16 16:00 97.9 F 81 22 128/75 94 11/28/16 15:03 83 18 Intake and Output 11/28/16 11/29/16 11/29/16 21:59 05:59 13:59 Intake Total 100 / 100 1340 / 1340 Output Total 975 / 975 900 / 900 Balance -875 / -875 440 / 440 Intake: IV 100 / 100 1100 / 1100 Dextrose 5%-1/2Ns W/20Meq 1000 / 1000 KCl 1,000 ml @ 84 mls/hr IV .[id number] SUKHI Rx#: [id number] Sodium Chloride 0.9% 100 100 / 100 100 / 100 ml @ 100 mls/hr IV Q8H SUKHI with Primaxin 500 mg Rx#:[id number] Oral 240 / 240 Output: Urine Catheter Amount 975 / 975 900 / 900 Other: Meal Dinner Percent of Meal Consumed 75% Feeding Ability Needs Supervision # Bowel Movements 1 Weight 194 lb Additional comments: Constitutional; Afebrile, cooperative, alert, not in distress, intermittently confused Eyes- No icterus, Pupils equal, reactive, No periorbital swelling Ears- Ext ear normal, hearing hard to conversation. Neck- Midline trachea, supple Respiratory system: Air Entry equal on both sides, No crackles or wheezing, no rhonchi. CVS- Rate normal, rhythm irregular, S1,S2 heard, no gallop, no rub. 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 Medical - DS: Data Labs on day of discharge: Labs from last 24 hours 11/29/16 11/29/16 11/29/16 09:00 03:53 03:53 WBC 10.2 RBC 3.03 L Hgb 9.0 L Hct 27.5 L MCV 90.8 MCH 29.8 MCHC 32.9 RDW 15.5 H Plt Count 266 MPV 8.0 Gran % 65.8 Lymph % (Auto) 16.7 [place] % (Auto) 12.2 H Eos % (Auto) 4.8 Baso % (Auto) 0.5 Gran # 6.7 Lymph # 1.7 [place] # 1.2 H Eos # 0.5 Baso # 0.1 PT INR Sodium 135 Potassium 4.4 Chloride 101 Carbon Dioxide 23 Anion Gap 11.0 BUN 10 Creatinine 1.1 GFR Calculation 59 Glucose 92 Uric Acid 4.2 Calcium 7.8 L Phosphorus 2.0 L Magnesium 1.8 Total Bilirubin 0.5 Direct Bilirubin < 0.2 GGT 25 AST 12 ALT 5 Alkaline Phosphatase 57 Lactate Dehydrogenase 221 Total Protein 5.4 L Albumin 2.6 L Globulin 2.8 Albumin/Globulin Ratio 0.9 L Triglycerides 90 Vancomycin Trough 20.7 H* 11/29/16 03:53 WBC RBC Hgb Hct MCV MCH MCHC RDW Plt Count MPV Gran % Lymph % (Auto) [place] % (Auto) Eos % (Auto) Baso % (Auto) Gran # Lymph # [place] # Eos # Baso # PT 18.0 H INR 1.4 H Sodium Potassium Chloride Carbon Dioxide Anion Gap BUN Creatinine GFR Calculation Glucose Uric Acid Calcium Phosphorus Magnesium Total Bilirubin Direct Bilirubin GGT AST ALT Alkaline Phosphatase Lactate Dehydrogenase Total Protein Albumin Globulin Albumin/Globulin Ratio Triglycerides Vancomycin Trough Preliminary micro results at discharge 11/25/16 09:14 Blood Culture - Preliminary Blood 11/25/16 09:22 Blood Culture - Preliminary Blood Medical - DS: A/P - Patient/Caregiver Discharge Instructions Activity: as per physical therapy, increase activity as tolerated Diet: Dysphagia Pureed ([place] thin liquids. ) Additional Instructions: Follow up with PCP in 1-2 weeks Check INR in 3 days, follow results with PCP Imipenem if for 4 additional days. last day will be 12/03/2016 Vancomycin is for only one dose, on 11/30/2016 Go back to the ER if worsening condition, Fever , shortness of breath. Patients family is considering palliative care at this time. So if patients worsens, talk with PCP and Family before sending patient to ER - Problem Maintenance (1) Dehydration, mild Status: Acute (2) Failure to thrive Status: Acute (3) Hypoxia Status: Acute (4) Acute urinary retention Status: Acute (5) Atrial fibrillation Status: Acute (6) Complicated UTI (urinary tract infection) Status: Acute (7) Diabetes mellitus, type II Status: Acute (8) Sphenoid sinusitis Status: Acute (9) Delirium Status: Acute - Follow up Plan Follow up with: Jamie Turner MD [Primary Care Provider] - (please call and schedule follow up appointment.) Disposition: Xfer SNF Prognosis: Undetermined Rehab Potential: Undetermined I certify that the patient requires SNF services: Yes Overall status at discharge: patient is progressing back to baseline Medical - DS: Qual - VTE Deep Vein Thrombosis/Pulmonary Embolism Present on Admission: No
[2016-11-29] MEDS ORDERED: WARFARIN 4 MG TABLET PO ONE (14:00)
== END 2016-11-29 13:05 | DRG 698 ==
LOC: ICU 15:08 → ED 15:08 → ICU 19:45 → SUATTDRO 11-22 09:00 → MEDSUR 11-23 11:40
PROVIDERS: ADMIT Internal Medicine; ATTEND Internal Medicine